=== PATIENT | male | born 1955 | race American Indian/Alaskan Native ===

== ENCOUNTER 2019-03-14 01:25 | Inpatient (IN) | payer MEDICARE ==
[2019-03-14 02:12] LABS: Hematocrit 39.3 % (35.5-45.6); Hemoglobin 12.4 gm/dl (11.8-15.2); Mean Corpuscular HGB Conc 31 % (32-34); Mean Corpuscular Volume 93 fl (84-94); Platelet Count 229 K/mm3 (140-440); Red Blood Count 4.24 M/mm3 (3.65-5.03); Red Cell Distribution Width 18.3 % (13.2-15.2)
[2019-03-14 02:27] LABS: BUN/Creatinine Ratio 13; Blood Urea Nitrogen 14 mg/dL (9-20)
[2019-03-14 02:28] LABS: Calcium 8.6 mg/dL (8.4-10.2)
[2019-03-14 02:37] LABS: Alanine Aminotransferase 43 units/L (7-56)
[2019-03-14 02:38] LABS: Albumin 3.5 g/dL (3.9-5)
[2019-03-14 02:48] LABS: Bilirubin,Urine Negative (Negative); Color,Urine Yellow (Yellow)
[2019-03-14 02:49] LABS: Blood,Urine Small (Negative); Mucus,Urine Few /HPF
[2019-03-14 04:45] LABS: Hemolysis Index 16
--- NOTE | 2019-03-14 04:57 | Emergency Department Report ---
ED General Adult HPI - General Chief complaint: Weakness Stated complaint: INSOMNIA/FATIGUE Time Seen by Provider: 03/14/19 04:48 Source: patient Mode of arrival: Ambulatory Limitations: No Limitations - History of Present Illness Initial comments: Patient is a 64-year-old -Greek male who presents with generalized malaise states insomnia for the past week just vaguely comfortable patient denies chest pain or shortness of breath at this time however states history of coronary artery disease and chest pain diabetes type 2 hypertension and insomnia followed by Dr. NAZARIO, states he does get tired but just cannot gross grossly zolpediem no working for sleep as prescribed by pcp MD Complaint: generalized malaise cough Onset/Timin -: Gradual, week(s) Location: chest, left, lower extremity Radiation: non-radiation Severity scale (0 -10): 3 Quality: stabbing, sharp, constant Consistency: constant Improves with: none Worsens with: none Associated Symptoms: cough, malaise, weakness. denies: confusion, diaphoresis, fever/chills, headaches, loss of appetite, nausea/vomiting, rash, seizure, shortness of breath Treatments Prior to Arrival: none - Related Data Home Medications Medication Instructions Recorded Confirmed Last Taken Aspirin [Aspirin BABY CHEW TAB] 1 tab PO DAILY 08/22/14 09/05/15 09/04/15 81mg Citalopram [celeXA] 40 tab PO DAILY 08/22/14 09/05/15 09/04/15 40 mg Insulin Aspart [NovoLOG Flexpen] 20 - 24 units SC TID 08/22/14 09/05/15 09/04/15 20 Insulin Lispro [Humalog Kwikpen] 40 units SC QHS 08/22/14 09/05/15 09/04/15 40 units Lisinopril 10 mg PO DAILY 08/22/14 09/05/15 09/04/15 10mg [place] Carbonate 600 mg PO BID 08/22/14 09/05/15 09/04/15 300mg Metoprolol [Lopressor TAB] 1 tab PO DAILY 08/22/14 09/05/15 09/04/15 50mg risperiDONE [Risperidone] 2 mg PO DAILY 08/22/14 09/05/15 09/04/15 2mg Mirtazapine [Remeron] 15 mg PO QHS 09/05/15 09/05/15 09/04/15 15mg Oxybutynin [Ditropan] 5 mg PO BID 09/05/15 09/05/15 09/04/15 5mg Ranitidine HCl [Zantac 150 MG TAB] 150 mg PO BID 09/05/15 09/05/15 09/04/15 150mg Rosuvastatin (Nf) [Crestor] 20 mg PO QHS 09/05/15 09/05/15 09/04/15 20mg Tamsulosin [Flomax] 0.4 mg PO BID 09/05/15 09/05/15 09/04/15 0.4mg metFORMIN [Glucophage] 500 mg PO BID 09/05/15 09/05/15 09/04/15 500mg Previous Rx's Medication Instructions Recorded Last Taken Type Ciprofloxacin HCl [Ciprofloxacin 500 mg PO Q12HR 10 Days #20 tab 08/04/18 Unknown Rx TAB] Cyclobenzaprine [Flexeril] 10 mg PO TID PRN #12 tablet 08/04/18 Unknown Rx Zolpidem Tartrate [Ambien] 5 mg PO QHS PRN #3 tablet 02/17/19 Unknown Rx Allergies Allergy/AdvReac Type Severity Reaction Status Date / Time No Known Allergies Allergy Verified 08/04/18 08:49 ED Review of Systems ROS: Stated complaint: INSOMNIA/FATIGUE Other details as noted in HPI Constitutional: malaise. denies: chills, fever Eyes: denies: eye pain, eye discharge, vision change ENT: congestion. denies: ear pain, throat pain Respiratory: cough, wheezing Cardiovascular: dyspnea on exertion. denies: chest pain, palpitations, edema, syncope Endocrine: no symptoms reported Gastrointestinal: denies: abdominal pain, nausea, diarrhea Genitourinary: denies: urgency, dysuria Musculoskeletal: denies: back pain, joint swelling, arthralgia Skin: denies: rash, lesions Neurological: denies: headache, weakness, numbness, paresthesias, confusion, abnormal gait, vertigo Psychiatric: denies: anxiety, depression Hematological/Lymphatic: denies: easy bleeding, easy bruising ED Past Medical Hx - Past Medical History Previous Medical History?: Yes Hx Hypertension: Yes Hx Diabetes: Yes Hx GERD: Yes Hx Psychiatric Treatment: Yes (Bipolar, Depression) Hx COPD: Yes Hx HIV: No Additional medical history: h/o prostate Ca - Surgical History Past Surgical History?: Yes Additional Surgical History: Prostate seed radiation for prostate cancer - Social History Smoking Status: Current Every Day Smoker Substance Use Type: None - Medications Home Medications: Home Medications Medication Instructions Recorded Confirmed Last Taken Type Aspirin [Aspirin BABY CHEW TAB] 1 tab PO DAILY 08/22/14 09/05/15 09/04/15 History 81mg Citalopram [celeXA] 40 tab PO DAILY 08/22/14 09/05/15 09/04/15 History 40 mg Insulin Aspart [NovoLOG Flexpen] 20 - 24 units SC TID 08/22/14 09/05/15 09/04/15 History 20 Insulin Lispro [Humalog Kwikpen] 40 units SC QHS 08/22/14 09/05/15 09/04/15 History 40 units Lisinopril 10 mg PO DAILY 08/22/14 09/05/15 09/04/15 History 10mg [place] 600 mg PO BID 08/22/14 09/05/15 09/04/15 History 300mg Metoprolol [Lopressor TAB] 1 tab PO DAILY 08/22/14 09/05/15 09/04/15 History 50mg risperiDONE [Risperidone] 2 mg PO DAILY 08/22/14 09/05/15 09/04/15 History 2mg Mirtazapine [Remeron] 15 mg PO QHS 09/05/15 09/05/15 09/04/15 History 15mg Oxybutynin [Ditropan] 5 mg PO BID 09/05/15 09/05/15 09/04/15 History 5mg Ranitidine HCl [Zantac 150 MG TAB] 150 mg PO BID 09/05/15 09/05/15 09/04/15 History 150mg Rosuvastatin (Nf) [Crestor] 20 mg PO QHS 09/05/15 09/05/15 09/04/15 History 20mg Tamsulosin [Flomax] 0.4 mg PO BID 09/05/15 09/05/15 09/04/15 History 0.4mg metFORMIN [Glucophage] 500 mg PO BID 09/05/15 09/05/15 09/04/15 History 500mg Ciprofloxacin HCl [Ciprofloxacin 500 mg PO Q12HR 10 Days #20 tab 08/04/18 Unknown Rx TAB] Cyclobenzaprine [Flexeril] 10 mg PO TID PRN #12 tablet 08/04/18 Unknown Rx Zolpidem Tartrate [Ambien] 5 mg PO QHS PRN #3 tablet 02/17/19 Unknown Rx ED Physical Exam - General Limitations: No Limitations General appearance: alert, in no apparent distress - Head Head exam: Present: atraumatic, normocephalic - Eye Eye exam: Present: normal appearance, PERRL, EOMI. Absent: scleral icterus, periorbital tenderness Pupils: Present: normal accommodation - ENT ENT exam: Present: normal orophraynx, mucous membranes moist, TM's normal bilaterally - Neck Neck exam: Present: normal inspection, full ROM. Absent: tenderness, me ningismus, lymphadenopathy, thyromegaly - Expanded Neck Exam Expanded Neck exam: Absent: carotid bruit, tracheal deviation - Respiratory Respiratory exam: Present: normal lung sounds bilaterally. Absent: respiratory distress, wheezes, stridor, chest wall tenderness, accessory muscle use, decreased breath sounds - Cardiovascular Cardiovascular Exam: Present: regular rate, normal rhythm, normal heart sounds. Absent: systolic murmur, diastolic murmur, rubs, gallop - GI/Abdominal GI/Abdominal exam: Present: soft, normal bowel sounds, hyperactive bowel sounds, hypoactive bowel sounds. Absent: distended, tenderness, guarding, rebound, rigid, mass, bruit, pulsatile mass - Rectal Rectal exam: Present: deferred - exam: Present: other (exam deferred per tiewer wq ) - Extremities Exam Extremities exam: Present: normal inspection, full ROM, normal capillary refill. Absent: tenderness, pedal edema, joint swelling, calf tenderness - Back Exam Back exam: Present: normal inspection, full ROM, tenderness, muscle spasm, paraspinal tenderness (right later lumbar pain no posterior vertebral point tenderness ), rash noted. Absent: CVA tenderness (R), CVA tenderness (L) - Neurological Exam Neurological exam: Present: CN II-XII intact, normal gait, abnormal gait. Absent: alert, oriented X3, motor sensory deficit - Psychiatric Psychiatric exam: Present: anxious. Absent: homicidal ideation, suicidal ideation - Skin Skin exam: Present: warm, dry, intact, normal color. Absent: rash, cyanosis, diaphoretic ED Course Vital Signs 03/14/19 03/14/19 01:29 02:09 Temperature 97.4 F L 97.4 F L Pulse Rate 108 H 110 H Respiratory 18 18 Rate Blood Pressure 137/95 137/95 O2 Sat by Pulse 99 99 Oximetry ED Medical Decision Making - Lab Data Result diagrams: 03/14/19 01:54 03/14/19 01:54 Lab Results 03/14/19 03/14/19 03/14/19 Range/Units 01:54 01:54 02:25 WBC 7.2 (4.5-11.0) K/mm3 RBC 4.24 (3.65-5.03) M/mm3 Hgb 12.4 (11.8-15.2) gm/dl Hct 39.3 (35.5-45.6) % MCV 93 (84-94) fl MCH 29 (28-32) pg MCHC 31 L (32-34) % RDW 18.3 H (13.2-15.2) % Plt Count 229 (140-440) K/mm3 Sodium 137 (137-145) mmol/L Potassium 4.0 (3.6-5.0) mmol/L Chloride 105.4 (98-107) mmol/L Carbon Dioxide 18 L (22-30) mmol/L Anion Gap 18 mmol/L BUN 14 (9-20) mg/dL Creatinine 1.1 (0.8-1.5) mg/dL Estimated GFR > 60 ml/min BUN/Creatinine Ratio 13 % Glucose 285 H (75-100) mg/dL Calcium 8.6 (8.4-10.2) mg/dL Total Bilirubin 0.50 (0.1-1.2) mg/dL AST 33 (5-40) units/L ALT 43 (7-56) units/L Alkaline Phosphatase 90 (35-129) units/L Troponin T 0.010 (0.00-0.029) ng/mL Total Protein 5.9 L (6.3-8.2) g/dL Albumin 3.5 L (3.9-5) g/dL Albumin/Globulin Ratio 1.5 % Urine Color Yellow (Yellow) Urine Turbidity Clear (Clear) Urine pH 5.0 (5.0-7.0) Ur Specific [place] 1.009 (1.003-1.030) Urine Protein 30 mg/dl (Negative) mg/dL Urine Glucose (UA) 50 (Negative) mg/dL Urine Ketones Negative (Negative) mg/dL Urine Blood Small A (Negative) Urine Nitrite Negative (Negative) Urine Bilirubin Negative (Negative) Urine Urobilinogen 2.0 (<2.0) mg/dL Ur Leukocyte Esterase Negative (Negative) Urine WBC (Auto) 1.0 (0.0-6.0) /HPF Urine RBC (Auto) 2.0 (0.0-6.0) /HPF U Epithel Cells (Auto) 1.0 (0-13.0) /HPF Urine Mucus Few /HPF - EKG Data EKG shows normal: sinus rhythm, axis, intervals - EKG Data Interpretation: normal EKG (EKG interp by ED attending no STEMI no ectopy no change from previous ekg 2014), [facility] Critical care attestation.: If time is entered above; I have spent that time in minutes in the direct care of this critically ill patient, excluding procedure time. ED Disposition Condition: Stable Referrals: ARIELLE BURDEN MD [Primary Care Provider] - 3-5 Days
--- NOTE | 2019-03-14 05:41 | XRay Report ---
PROCEDURE: XR CHEST ROUTINE 2V TECHNIQUE: PA and lateral chest radiographs HISTORY: weakness COMPARISONS: 08/04/2018 FINDINGS: No mediastinal shift. Borderline Cardiomegaly. Right middle lobe opacity with air bronchograms silhou ettes the right heart border. Patchy left perihilar opacity. Mild blunting of both costophrenic angle s and posterior costophrenic sulci. No pneumothorax. IMPRESSION: Multifocal airspace disease most significant in the right middle lobe with small pleural effusions. F ollow-up to resolution is recommended. This document is electronically signed by Sukhdev Blum MD., March 14 2019 05:39:29 AM ET
[2019-03-14] MEDS ORDERED: ROCEPHIN/NS 1 GM/50 ML 1 GM/50 ML BAG IV ONE (06:05)
[2019-03-14] MEDS ORDERED: NACL 0.9% 500 ML 500 ML IV ONE (06:05)
[2019-03-14] MEDS ORDERED: DUONEB *Not for PRN Use IH ONE (06:06)
[2019-03-14] MEDS ORDERED: LASIX IV ONE (07:12)
[2019-03-14] MEDS ORDERED: APRESOLINE IV ONE (07:12)
--- NOTE | 2019-03-14 07:19 | Emergency Department Report ---
ED General Adult HPI - General Chief complaint: Weakness Stated complaint: INSOMNIA/FATIGUE Time Seen by Provider: 03/14/19 04:48 Source: patient Mode of arrival: Ambulatory Limitations: No Limitations - History of Present Illness Initial comments: Mrs. Pantoja is a 64 y/o aam who presents for complaint of insomnia 1 month patient states she is currently comfortable patient denies chest pain however does have cough and some shortness of breath Mrs. Rivers has a history of coronary artery disease hypertension diabetes type 2 and depression patient states he was prescribed Zolpidem 1 month ago however not working for insomnia, pt is followed by Dr. Iglesias , states intermittent adherence blood pressure medications. There is no nausea vomiting no dizziness there is no SI or HI Onset/Timin -: month(s) Severity scale (0 -10): 0 Consistency: intermittent Improves with: none Worsens with: other (noc) Associated Symptoms: cough, shortness of breath Treatments Prior to Arrival: none - Related Data Home Medications Medication Instructions Recorded Confirmed Last Taken Aspirin [Aspirin BABY CHEW TAB] 1 tab PO DAILY 08/22/14 09/05/15 09/04/15 81mg Citalopram [celeXA] 40 tab PO DAILY 08/22/14 09/05/15 09/04/15 40 mg Insulin Aspart [NovoLOG Flexpen] 20 - 24 units SC TID 08/22/14 09/05/15 09/04/15 20 Insulin Lispro [Humalog Kwikpen] 40 units SC QHS 08/22/14 09/05/15 09/04/15 40 units Lisinopril 10 mg PO DAILY 08/22/14 09/05/15 09/04/15 10mg [place] Carbonate 600 mg PO BID 08/22/14 09/05/15 09/04/15 300mg Metoprolol [Lopressor TAB] 1 tab PO DAILY 08/22/14 09/05/15 09/04/15 50mg risperiDONE [Risperidone] 2 mg PO DAILY 08/22/14 09/05/15 09/04/15 2mg Mirtazapine [Remeron] 15 mg PO QHS 09/05/15 09/05/15 09/04/15 15mg Oxybutynin [Ditropan] 5 mg PO BID 09/05/15 09/05/15 09/04/15 5mg Ranitidine HCl [Zantac 150 MG TAB] 150 mg PO BID 09/05/15 09/05/15 09/04/15 150mg Rosuvastatin (Nf) [Crestor] 20 mg PO QHS 09/05/15 09/05/15 09/04/15 20mg Tamsulosin [Flomax] 0.4 mg PO BID 09/05/15 09/05/15 09/04/15 0.4mg metFORMIN [Glucophage] 500 mg PO BID 09/05/15 09/05/15 09/04/15 500mg Previous Rx's Medication Instructions Recorded Last Taken Type Ciprofloxacin HCl [Ciprofloxacin 500 mg PO Q12HR 10 Days #20 tab 08/04/18 Unknown Rx TAB] Cyclobenzaprine [Flexeril] 10 mg PO TID PRN #12 tablet 08/04/18 Unknown Rx Zolpidem Tartrate [Ambien] 5 mg PO QHS PRN #3 tablet 02/17/19 Unknown Rx Allergies Allergy/AdvReac Type Severity Reaction Status Date / Time No Known Allergies Allergy Verified 08/04/18 08:49 ED Review of Systems ROS: Stated complaint: INSOMNIA/FATIGUE Other details as noted in HPI Constitutional: denies: chills, fever Eyes: denies: eye pain, eye discharge, vision change ENT: congestion. denies: ear pain, throat pain Respiratory: cough, shortness of breath Cardiovascular: dyspnea on exertion, orthopnea, paroxysmal nocturnal dyspnea. denies: chest pain, palpitations, edema, syncope Endocrine: no symptoms reported Gastrointestinal: denies: abdominal pain, nausea, diarrhea Genitourinary: denies: urgency, dysuria Musculoskeletal: denies: back pain, joint swelling, arthralgia Skin: denies: rash, lesions Neurological: denies: headache, weakness, paresthesias Psychiatric: denies: anxiety, depression Hematological/Lymphatic: denies: easy bleeding, easy bruising ED Past Medical Hx - Past Medical History Previous Medical History?: Yes Hx Hypertension: Yes Hx Diabetes: Yes Hx GERD: Yes Hx Psychiatric Treatment: Yes (Bipolar, Depression) Hx COPD: Yes Hx HIV: No Additional medical history: h/o prostate Ca - Surgical History Past Surgical History?: Yes Additional Surgical History: Prostate seed radiation for prostate cancer - Social History Smoking Status: Current Every Day Smoker Substance Use Type: None - Medications Home Medications: Home Medications Medication Instructions Recorded Confirmed Last Taken Type Aspirin [Aspirin BABY CHEW TAB] 1 tab PO DAILY 08/22/14 09/05/15 09/04/15 History 81mg Citalopram [celeXA] 40 tab PO DAILY 08/22/14 09/05/15 09/04/15 History 40 mg Insulin Aspart [NovoLOG Flexpen] 20 - 24 units SC TID 08/22/14 09/05/15 09/04/15 History 20 Insulin Lispro [Humalog Kwikpen] 40 units SC QHS 08/22/14 09/05/15 09/04/15 History 40 units Lisinopril 10 mg PO DAILY 08/22/14 09/05/15 09/04/15 History 10mg [place] Carbonate 600 mg PO BID 08/22/14 09/05/15 09/04/15 History 300mg Metoprolol [Lopressor TAB] 1 tab PO DAILY 08/22/14 09/05/15 09/04/15 History 50mg risperiDONE [Risperidone] 2 mg PO DAILY 08/22/14 09/05/15 09/04/15 History 2mg Mirtazapine [Remeron] 15 mg PO QHS 09/05/15 09/05/15 09/04/15 History 15mg Oxybutynin [Ditropan] 5 mg PO BID 09/05/15 09/05/15 09/04/15 History 5mg Ranitidine HCl [Zantac 150 MG TAB] 150 mg PO BID 09/05/15 09/05/15 09/04/15 History 150mg Rosuvastatin (Nf) [Crestor] 20 mg PO QHS 09/05/15 09/05/15 09/04/15 History 20mg Tamsulosin [Flomax] 0.4 mg PO BID 09/05/15 09/05/15 09/04/15 History 0.4mg metFORMIN [Glucophage] 500 mg PO BID 09/05/15 09/05/15 09/04/15 History 500mg Ciprofloxacin HCl [Ciprofloxacin 500 mg PO Q12HR 10 Days #20 tab 08/04/18 Unkno wn Rx TAB] Cyclobenzaprine [Flexeril] 10 mg PO TID PRN #12 tablet 08/04/18 Unknown Rx Zolpidem Tartrate [Ambien] 5 mg PO QHS PRN #3 tablet 02/17/19 Unknown Rx ED Physical Exam - General Limitations: No Limitations General appearance: alert, in no apparent distress - Head Head exam: Present: atraumatic, normocephalic - Eye Eye exam: Present: normal appearance, PERRL, EOMI Pupils: Present: normal accommodation - ENT ENT exam: Present: mucous membranes moist - Neck Neck exam: Present: normal inspection, full ROM, lymphadenopathy. Absent: tenderness, meningismus, thyromegaly - Expanded Neck Exam Expanded Neck exam: Absent: tenderness, midline deformity, anterior neck swelling, thyroid mass, carotid bruit, tracheal deviation - Respiratory Respiratory exam: Present: wheezes (exp wheezes anterior lobes ), chest wall tenderness (right lateral chest wall tenderness ). Absent: stridor - Expanded Respiratory Exam Expanded Location: Wheezes: Right, Left, Upper (name R Loni), Decreased Breath Sounds: Right, Lower (mode) - Cardiovascular Cardiovascular Exam: Present: normal rhythm, tachycardia, normal heart sounds. Absent: systolic murmur, diastolic murmur, rubs, gallop - Expanded Cardiovascular Exam Expanded Peripheral pulses: 2+: Carotid (R), Carotid (L), Radial (R), Radial (L), Dorsalis Pedis (R), Dorsalis Pedis (L) - GI/Abdominal GI/Abdominal exam: Present: soft, normal bowel sounds. Absent: distended, tende rness, guarding, rebound, rigid, mass, bruit, hernia - Rectal Rectal exam: Present: deferred - Extremities Exam Extremities exam: Present: normal inspection, normal capillary refill (work). Absent: full ROM (all), tenderness, pedal edema, joint swelling, calf tenderness - Back Exam Back exam: Present: normal inspection, full ROM, CVA tenderness (R) (the organ sentences is). Absent: tenderness, CVA tenderness (L), muscle spasm, paraspinal tenderness, vertebral tenderness, rash noted - Neurological Exam Neurological exam: Present: alert, oriented X3, CN II-XII intact, normal gait, reflexes normal - Psychiatric Psychiatric exam: Present: normal affect, normal mood - Skin Skin exam: Present: warm, dry, intact, normal color. Absent: rash ED Course Vital Signs 03/14/19 03/14/19 01:29 02:09 Temperature 97.4 F L 97.4 F L Pulse Rate 108 H 110 H Respiratory 18 18 Rate Blood Pressure 137/95 137/95 O2 Sat by Pulse 99 99 Oximetry ED Medical Decision Making - Lab Data Result diagrams: 03/14/19 01:54 03/14/19 01:54 Labs 03/14/19 03/14/19 03/14/19 01:54 01:54 02:25 WBC 7.2 RBC 4.24 Hgb 12.4 Hct 39.3 MCV 93 MCH 29 MCHC 31 L RDW 18.3 H Plt Count 229 Sodium 137 Potassium 4.0 Chloride 105.4 Carbon Dioxide 18 L Anion Gap 18 BUN 14 Creatinine 1.1 Estimated GFR > 60 BUN/Creatinine Ratio 13 Glucose 285 H Calcium 8.6 Total Bilirubin 0.50 AST 33 ALT 43 Alkaline Phosphatase 90 Troponin T 0.010 NT-Pro-B Natriuret Pep Total Protein 5.9 L Albumin 3.5 L Albumin/Globulin Ratio 1.5 Urine Color Yellow Urine Turbidity Clear Urine pH 5.0 Ur Specific [place] 1.009 Urine Protein 30 mg/dl Urine Glucose (UA) 50 Urine Ketones Negative Urine Blood Small A Urine Nitrite Negative Urine Bilirubin Negative Urine Urobilinogen 2.0 Ur Leukocyte Esterase Negative Urine WBC (Auto) 1.0 Urine RBC (Auto) 2.0 U Epithel Cells (Auto) 1.0 Urine Mucus Few 03/14/19 06:13 WBC RBC Hgb Hct MCV MCH MCHC RDW Plt Count Sodium Potassium Chloride Carbon Dioxide Anion Gap BUN Creatinine Estimated GFR BUN/Creatinine Ratio Glucose Calcium Total Bilirubin AST ALT Alkaline Phosphatase Troponin T < 0.010 NT-Pro-B Natriuret Pep 1722 H Total Protein Albumin Albumin/Globulin Ratio Urine Color Urine Turbidity Urine pH Ur Specific [place] Urine Protein Urine Glucose (UA) Urine Ketones Urine Blood Urine Nitrite Urine Bilirubin Urine Urobilinogen Ur Leukocyte Esterase Urine WBC (Auto) Urine RBC (Auto) U Epithel Cells (Auto) Urine Mucus EKG - EKG Data EKG shows normal: sinus rhythm, axis, intervals, ST-T waves Rate: tachycardia - EKG Data When compared to previous EKG there are: no significant change Interpretation: LVH (ekg interp by ed attending nsr with lvh, no ST Elevated TX, no ectopy ) - Radiology Data Radiology results: report reviewed, image reviewed Findings [facility] [address] [place] [address] XRay Report Signed Patient: NIECY PANTOJA MR#: [id number] : 1955 Acct:[id number] Age/Sex: 64 / M ADM Date: 03/14/19 Loc: ED Attending Dr: Ordering Physician: SHINE SUTHERLAND NP Date of Service: 03/14/19 Procedure(s): XR chest routine 2V Accession Number(s): [id number] cc: SHINE SUTHERLAND NP Fluoro Time In Minutes: PROCEDURE: XR CHEST ROUTINE 2V TECHNIQUE: PA and lateral chest radiographs HISTORY: weakness COMPARISONS: 08/04/2018 FINDINGS: No mediastinal shift. Borderline Cardiomegaly. Right middle lobe opacity with air bronchograms silhouettes the right heart border. Patchy left perihilar opacity. Mild blunting of both costophrenic angles and posterior costophrenic sulci. No pneumothorax. IMPRESSION: Multifocal airspace disease most significant in the right middle lobe with small pleural effusions. Follow-up to resolution is recommended. This document is electronically signed by Sukhdev Jimenez MD., March 14 2019 05:39:29 AM ET Transcribed By: OLESYA Dictated By: SUKHDEV JIMENEZ MD Electronically Authenticated By: SUKHDEV JIMENEZ MD Signed Date/Time: 03/14/19 0541 DD/ 2 TD/TT: 03/14/19532 - Medical Decision Making cxr: mild hiliar infiltrates , small right middle pleural effusion, TX with Duoneb, rocephin, BNP pending BNP is : 1742, trop: <0.01 x 2, Hx complaint, CAD, HTN, DM, pt states symptoms are slightly improved with medications given in ed. however still notes increased sob with ambulation, noted PND on exam, plan, consult ed attending, bp control, diuresis , repeat trop. cxr in am , consult hospitalist for admission Dx CHF , pt care hand off to Hospitalist Dr Colon, discussed treatment plan with patient , patient in agreement and understanding of same. Critical care attestation.: If time is entered above; I have spent that time in minutes in the direct care of this critically ill patient, excluding procedure time. ED Disposition Clinical Impression: CHF (congestive heart failure) Qualifiers: Heart failure type: unspecified Heart failure chronicity: unspecified Qualified Code(s): I50.9 - Heart failure, unspecified Disposition: DC-09 OP ADMIT IP TO THIS HOSP Is pt being admited?: Yes Does the pt Need Aspirin: No Condition: Stable Instructions: Heart Failure (ED) Referrals: ARIELLE BURDEN MD [Primary Care Provider] - 3-5 Days Time of Disposition: 07:51
[2019-03-14] MEDS ORDERED: APRESOLINE PO SCH (08:30)
[2019-03-14] MEDS ORDERED: TYLENOL PO PRN (09:17)
[2019-03-14] MEDS ORDERED: SODIUM CHLORIDE FLUSH SYRINGE 10 ML IV PRN (09:17)
[2019-03-14] MEDS ORDERED: ZOFRAN IV PRN (09:17)
[2019-03-14] MEDS ORDERED: NITROSTAT SL PRN (09:33)
[2019-03-14] MEDS ORDERED: MORPHINE IV PRN (09:33)
[2019-03-14] MEDS ORDERED: SODIUM CHLORIDE FLUSH SYRINGE 10 ML IV SCH (10:00)
[2019-03-14] MEDS ORDERED: LASIX IV SCH (10:00)
--- NOTE | 2019-03-14 10:03 | History and Physical Report ---
<TYRON INMAN - Last Filed: 03/14/19 10:44> History of Present Illness Date of examination: 03/14/19 Date of admission: 03/14/19 07:52 Chief complaint: Insomnia and trouble breathing History of present illness: Mr. Pantoja is a 64-year-old male with history of CHF, diabetes, hypertension, depression, anger management issues, and prostate cancer who presented to the ED this morning with complaints of difficulty breathing and difficulty sleeping, which has progressively worsened over the past 2 weeks. Briefly, please note patient was seen in the ED on 02/17 with similar complaints. He was given a prescription for Ambien 5 mg and advised to continue all current medication, and follow up with [facility] in 3-5 days. Is not clear whether patient Follow-up appointment. In addition to taking Ambien patient takes Remeron 15 mg, lithium 600 mg, and risperidone 2 mg twice a day Mr. Figueroa is a ongoing smoker that smokes 1 pack per day for the last 42 years. Patient states that she has been taking Ambien but is able to remain sleeping throughout the night. He has periods of interruption and becomes unsteady with ambulation. He feels like this is due to the"medication being in system". He feels that this difficulty breathing is related to anxiety. He attributes his anxiety to job instability/ uncertainty and income worries . Past History Past Medical History: cancer, diabetes, heart failure, hypertension Past Surgical History: No surgical history Social history: , smoking Family history: no significant family history Medications and Allergies Allergies Allergy/AdvReac Type Severity Reaction Status Date / Time No Known Allergies Allergy Verified 08/04/18 08:49 Home Medications Medication Instructions Recorded Confirmed Last Taken Type Aspirin [Aspirin BABY CHEW TAB] 1 tab PO DAILY 08/22/14 09/05/15 09/04/15 History 81mg Citalopram [celeXA] 40 tab PO DAILY 08/22/14 09/05/15 09/04/15 History 40 mg Insulin Aspart [NovoLOG Flexpen] 20 - 24 units SC TID 08/22/14 09/05/15 09/04/15 History 20 Insulin Lispro [Humalog Kwikpen] 40 units SC QHS 08/22/14 09/05/15 09/04/15 History 40 units Lisinopril 10 mg PO DAILY 08/22/14 09/05/15 09/04/15 History 10mg [place] 600 mg PO BID 08/22/14 09/05/15 09/04/15 History 300mg Metoprolol [Lopressor TAB] 1 tab PO DAILY 08/22/14 09/05/15 09/04/15 History 50mg risperiDONE [Risperidone] 2 mg PO DAILY 08/22/14 09/05/15 09/04/15 History 2mg Mirtazapine [Remeron] 15 mg PO QHS 09/05/15 09/05/15 09/04/15 History 15mg Oxybutynin [Ditropan] 5 mg PO BID 09/05/15 09/05/15 09/04/15 History 5mg Ranitidine HCl [Zantac 150 MG TAB] 150 mg PO BID 09/05/15 09/05/15 09/04/15 History 150mg Rosuvastatin (Nf) [Crestor] 20 mg PO QHS 09/05/15 09/05/15 09/04/15 History 20mg Tamsulosin [Flomax] 0.4 mg PO BID 09/05/15 09/05/15 09/04/15 History 0.4mg metFORMIN [Glucophage] 500 mg PO BID 09/05/15 09/05/15 09/04/15 History 500mg Ciprofloxacin HCl [Ciprofloxacin 500 mg PO Q12HR 10 Days #20 tab 08/04/18 Unknown Rx TAB] Cyclobenzaprine [Flexeril] 10 mg PO TID PRN #12 tablet 08/04/18 Unknown Rx Zolpidem Tartrate [Ambien] 5 mg PO QHS PRN #3 tablet 02/17/19 Unknown Rx Active Meds: Active Medications Acetaminophen (Tylenol) 650 mg PO Q4H PRN PRN Reason: Pain MILD(1-3)/Fever >100.5/RAMOS Furosemide (Lasix) 40 mg IV BID YADY Hydralazine HCl (Apresoline) 25 mg PO TID YADY Morphine Sulfate (Morphine) 2 mg IV Q5MIN PRN PRN Reason: Chest Pain unrelieved by NTG Nitroglycerin (Nitrostat) 0.4 mg SL .Q5MIN PRN PRN Reason: Chest Pain Ondansetron HCl (Zofran) 4 mg IV Q8H PRN PRN Reason: Nausea And Vomiting Sodium Chloride (Sodium Chloride Flush Syringe 10 Ml) 10 ml IV BID YADY Sodium Chloride (Sodium Chloride Flush Syringe 10 Ml) 10 ml IV PRN PRN PRN Reason: LINE FLUSH Zolpidem Tartrate (Ambien) 5 mg PO QHS PRN PRN Reason: Insomnia Review of Systems Constitutional: weight loss Ears, nose, mouth and throat: decreased hearing (wear hearing aide), no nasal congestion, no sore throat, no headache Cardiovascular: edema, shortness of breath, no chest pain Respiratory: cough with sputum, shortness of breath, no home oxygen Gastrointestinal: no abdominal pain, no nausea, no vomiting, no diarrhea, no constipation Genitourinary Male: no dysuria, no hematuria, no urinary frequency, no nocturia, no incontinence Rectal: no pain Musculoskeletal: frequent falls (during night time) Integumentary: pruritis, no rash, no wounds Neurological: no head injury, no weakness, no numbness, no tingling Psychiatric: anxiety, sleep disturbances, insomnia Endocrine: no polydipsia, no polyuria, no nocturia Hematologic/Lymphatic: no easy bruising, no easy bleeding Allergic/Immunologic: no wheezing Exam - Constitutional Vitals: Temp Pulse Resp BP Pulse Ox 97.4 F L 95 H 24 135/94 94 03/14/19 02:09 03/14/19 09:23 03/14/19 09:23 03/14/19 09:23 03/14/19 09:23 General appearance: Present: no acute distress - EENT Eyes: Present: PERRL, EOM intact ENT: clear oral mucosa, poor dentition - Neck Neck: Present: supple - Respiratory Respiratory effort: other (non-labored) Respiratory: bilateral: diminished (bases) - Cardiovascular Rhythm: regular Heart Sounds: Present: S1 & S2 - Extremities Extremities: pulses intact Extremity abnormal: edema - Peripheral Assessment Lower Extremity Edema Type: Pitting Edema Degree: 1+ Peripheral Pulses: within normal limits - Abdominal General gastrointestinal: Present: deferred, non-tender Male genitourinary: Present: deferred - Rectal Rectal Exam: deferred - Integumentary Integumentary: Present: warm, dry - Musculoskeletal Musculoskeletal: strength equal bilaterally - Psychiatric Psychiatric: cooperative, agitated - Neurologic Neurologic: CNII-XII intact Results - Labs CBC & Chem 7: 03/14/19 01:54 03/14/19 01:54 Labs: Laboratory Last Values WBC 7.2 K/mm3 (4.5-11.0) 03/14/19 01:54 RBC 4.24 M/mm3 (3.65-5.03) 03/14/19 01:54 Hgb 12.4 gm/dl (11.8-15.2) 03/14/19 01:54 Hct 39.3 % (35.5-45.6) 03/14/19 01:54 MCV 93 fl (84-94) 03/14/19 01:54 MCH 29 pg (28-32) 03/14/19 01:54 MCHC 31 % (32-34) L 03/14/19 01:54 RDW 18.3 % (13.2-15.2) H 03/14/19 01:54 Plt Count 229 K/mm3 (140-440) 03/14/19 01:54 Sodium 137 mmol/L (137-145) 03/14/19 01:54 Potassium 4.0 mmol/L (3.6-5.0) 03/14/19 01:54 Chloride 105.4 mmol/L (98-107) 03/14/19 01:54 Carbon Dioxide 18 mmol/L (22-30) L 03/14/19 01:54 Anion Gap 18 mmol/L 03/14/19 01:54 BUN 14 mg/dL (9-20) 03/14/19 01:54 Creatinine 1.1 mg/dL (0.8-1.5) 03/14/19 01:54 Estimated GFR > 60 ml/min 03/14/19 01:54 BUN/Creatinine Ratio 13 % 03/14/19 01:54 Glucose 285 mg/dL (75-100) H 03/14/19 01:54 Calcium 8.6 mg/dL (8.4-10.2) 03/14/19 01:54 Total Bilirubin 0.50 mg/dL (0.1-1.2) 03/14/19 01:54 AST 33 units/L (5-40) 03/14/19 01:54 ALT 43 units/L (7-56) 03/14/19 01:54 Alkaline Phosphatase 90 units/L (35-129) 03/14/19 01:54 Troponin T < 0.010 ng/mL (0.00-0.029) 03/14/19 06:13 NT-Pro-B Natriuret Pep 1722 pg/mL (0-900) H 03/14/19 06:13 Total Protein 5.9 g/dL (6.3-8.2) L 03/14/19 01:54 Albumin 3.5 g/dL (3.9-5) L 03/14/19 01:54 Albumin/Globulin Ratio 1.5 % 03/14/19 01:54 Urine Color Yellow (Yellow) 03/14/19 02:25 Urine Turbidity Clear (Clear) 03/14/19 02:25 Urine pH 5.0 (5.0-7.0) 03/14/19 02:25 Ur Specific [place] 1.009 (1.003-1.030) 03/14/19 02:25 Urine Protein 30 mg/dl mg/dL (Negative) 03/14/19 02:25 Urine Glucose (UA) 50 mg/dL (Negative) 03/14/19 02:25 Urine Ketones Negative mg/dL (Negative) 03/14/19 02:25 Urine Blood Small (Negative) A 03/14/19 02:25 Urine Nitrite Negative (Negative) 03/14/19 02:25 Urine Bilirubin Negative (Negative) 03/14/19 02:25 Urine Urobilinogen 2.0 mg/dL (<2.0) 03/14/19 02:25 Ur Leukocyte Esterase Negative (Negative) 03/14/19 02:25 Urine WBC (Auto) 1.0 /HPF (0.0-6.0) 03/14/19 02:25 Urine RBC (Auto) 2.0 /HPF (0.0-6.0) 03/14/19 02:25 U Epithel Cells (Auto) 1.0 /HPF (0-13.0) 03/14/19 02:25 Urine Mucus Few /HPF 03/14/19 02:25 Assessment and Plan Assessment and plan: 64 y.o male with history of CHF, uncontrolled DM, HTN, and insomnia who was seen in the ED this morning. At the time of my examination patient is awake, alert and oriented 3 sitting up in bedside chair on room air. During the examination he displayed periods of dis orientation and needed to be redirected. Insomnia Currently taking Ambien 5mg daily States that his inability to sleep is related to anxiety and job uncertainty Psych consulted CHF CXR this am shows borderline cardiomegaly, multifocal airspace disease most significant in RML with small pleural effusion. ECG this am initial results revealed LA enlargement, and LVH with secondary repolarization abnormality- pending finalized read Continue HF Meds to optimize cardiac function Order Echo DM BG this am 285 Start POC monitoring with SSI coverage Start Lantus 10u HS HTN Monitor BP and continue antihypertensive to optimize BP Depression Continue home meds: Remeron, Risperidone, and lithium Consult to psych pending Hx of Anger issues Hx of Prostate CA Advance Directives: No VTE prophylaxis?: Chemical <JD JEAN-BAPTISTE R - Last Filed: 03/14/19 11:08> History of Present Illness Date of admission: 03/14/19 07:52 Medications and Allergies Active Meds: Active Medications Acetaminophen (Tylenol) 650 mg PO Q4H PRN PRN Reason: Pain MILD(1-3)/Fever >100.5/RAMOS Furosemide (Lasix) 40 mg IV BID YADY Hydralazine HCl (Apresoline) 25 mg PO TID YADY Morphine Sulfate (Morphine) 2 mg IV Q5MIN PRN PRN Reason: Chest Pain unrelieved by NTG Nitroglycerin (Nitrostat) 0.4 mg SL .Q5MIN PRN PRN Reason: Chest Pain Ondansetron HCl (Zofran) 4 mg IV Q8H PRN PRN Reason: Nausea And Vomiting Sodium Chloride (Sodium Chloride Flush Syringe 10 Ml) 10 ml IV BID YADY Sodium Chloride (Sodium Chloride Flush Syringe 10 Ml) 10 ml IV PRN PRN PRN Reason: LINE FLUSH Zolpidem Tartrate (Ambien) 5 mg PO QHS PRN PRN Reason: Insomnia Exam - Constitutional Vitals: Temp Pulse Resp BP Pulse Ox 97.4 F L 95 H 24 135/94 94 03/14/19 02:09 03/14/19 09:23 03/14/19 09:23 03/14/19 09:23 03/14/19 09:23 Results - Labs CBC & Chem 7: 03/14/19 01:54 03/14/19 01:54 Labs: Laboratory Last Values WBC 7.2 K/mm3 (4.5-11.0) 03/14/19 01:54 RBC 4.24 M/mm3 (3.65-5.03) 03/14/19 01:54 Hgb 12.4 gm/dl (11.8-15.2) 03/14/19 01:54 Hct 39.3 % (35.5-45.6) 03/14/19 01:54 MCV 93 fl (84-94) 03/14/19 01:54 MCH 29 pg (28-32) 03/14/19 01:54 MCHC 31 % (32-34) L 03/14/19 01:54 RDW 18.3 % (13.2-15.2) H 03/14/19 01:54 Plt Count 229 K/mm3 (140-440) 03/14/19 01:54 Sodium 137 mmol/L (137-145) 03/14/19 01:54 Potassium 4.0 mmol/L (3.6-5.0) 03/14/19 01:54 Chloride 105.4 mmol/L (98-107) 03/14/19 01:54 Carbon Dioxide 18 mmol/L (22-30) L 03/14/19 01:54 Anion Gap 18 mmol/L 03/14/19 01:54 BUN 14 mg/dL (9-20) 03/14/19 01:54 Creatinine 1.1 mg/dL (0.8-1.5) 03/14/19 01:54 Estimated GFR > 60 ml/min 03/14/19 01:54 BUN/Creatinine Ratio 13 % 03/14/19 01:54 Glucose 285 mg/dL (75-100) H 03/14/19 01:54 Calcium 8.6 mg/dL (8.4-10.2) 03/14/19 01:54 Total Bilirubin 0.50 mg/dL (0.1-1.2) 03/14/19 01:54 AST 33 units/L (5-40) 03/14/19 01:54 ALT 43 units/L (7-56) 03/14/19 01:54 Alkaline Phosphatase 90 units/L (35-129) 03/14/19 01:54 Troponin T < 0.010 ng/mL (0.00-0.029) 03/14/19 06:13 NT-Pro-B Natriuret Pep 1722 pg/mL (0-900) H 03/14/19 06:13 Total Protein 5.9 g/dL (6.3-8.2) L 03/14/19 01:54 Albumin 3.5 g/dL (3.9-5) L 03/14/19 01:54 Albumin/Globulin Ratio 1.5 % 03/14/19 01:54 Urine Color Yellow (Yellow) 03/14/19 02:25 Urine Turbidity Clear (Clear) 03/14/19 02:25 Urine pH 5.0 (5.0-7.0) 03/14/19 02:25 Ur Specific [place] 1.009 (1.003-1.030) 03/14/19 02:25 Urine Protein 30 mg/dl mg/dL (Negative) 03/14/19 02:25 Urine Glucose (UA) 50 mg/dL (Negative) 03/14/19 02:25 Urine Ketones Negative mg/dL (Negative) 03/14/19 02:25 Urine Blood Small (Negative) A 03/14/19 02:25 Urine Nitrite Negative (Negative) 03/14/19 02:25 Urine Bilirubin Negative (Negative) 03/14/19 02:25 Urine Urobilinogen 2.0 mg/dL (<2.0) 03/14/19 02:25 Ur Leukocyte Esterase Negative (Negative) 03/14/19 02:25 Urine WBC (Auto) 1.0 /HPF (0.0-6.0) 03/14/19 02:25 Urine RBC (Auto) 2.0 /HPF (0.0-6.0) 03/14/19 02:25 U Epithel Cells (Auto) 1.0 /HPF (0-13.0) 03/14/19 02:25 Urine Mucus Few /HPF 03/14/19 02:25 Assessment and Plan Assessment and plan: I saw and evaluated the patient. I agree with the findings and the plan of care as documented in the Nurse Practitioner's~note, with the following corrections a nd additions. Dr. Jean-Baptiste CHF most likely acute on chronic combined heart failure.
--- NOTE | 2019-03-14 10:53 | Discharge Summary ---
Providers - Providers Date of Admission: 03/14/19 07:52 Attending physician: JD JEAN-BAPTISTE 03/14/19 09:17 Consult to Mental Health [CONS] Urgent Reason For Exam: hx of mental health disease. Place consult to:: yard crane operator pulmonary specialist Notified:: awaiting call back Phone number called:: [phone] Primary care physician: ARIELLE BURDEN Hospitalization Condition: Stable Hospital course: Pt was admitted for CHF and insomina. After initial examination, I received a call from pt's primary nurse, and was advised he wanted to sign out AMA. I went back and spoke with pt and discussed plan of care, and risk associated with signing out AMA. According to patient he needs to go home and drop off the house keys for his , who is presently at work and will not return home until 6pm this evening. I suggested that he call his and let her know that he was at [facility] and can brass pickler the keys, when she gets off. Pt become upset and refused to continue the conversation. He sat silent for a few minutes and then insisted that the nurse give him the paperwork to sign. Disposition: DC-07 LEFT AGAINST MED ADVICE Core Measure Documentation - Palliative Care Palliative Care/ Comfort Measures: Not Applicable - Core Measures Any of the following diagnoses?: heart failure - VTE Discharge Requirements Deep Vein Thrombosis/Pulmonary Embolism Present on Admission: No Has pt received <5 days of overlap therapy or INR<2.0: No Anticoagulant overlap therapy prescribed at discharge: No Contraindication No Overlap Therapy order at DC: Patient Refusal - Heart Failure Discharge Requirements TERESITA/ARB for LVSD if EF <40%: Not Applicable Beta janie at discharge: Yes Exam - Physical Exam Narrative exam: General appearance: Present: no acute distress - EENT Eyes: Present: PERRL, EOM intact ENT: clear oral mucosa, poor dentition - Neck Neck: Present: supple - Respiratory Respiratory effort: other (non-labored) Respiratory: bilateral: diminished (bases) - Cardiovascular Rhythm: regular Heart Sounds: Present: S1 & S2 - Extremities Extremities: pulses intact Extremity abnormal: edema - Peripheral Assessment Lower Extremity Edema Type: Pitting Edema Degree: 1+ Peripheral Pulses: within normal limits - Abdominal General gastrointestinal: Present: deferred, non-tender Male genitourinary: Present: deferred - Rectal Rectal Exam: deferred - Integumentary Integumentary: Present: warm, dry - Musculoskeletal Musculoskeletal: strength equal bilaterally - Psychiatric Psychiatric: cooperative, agitated - Neurologic Neurologic: CNII-XII intact - Constitutional Vitals: Temp Pulse Resp BP Pulse Ox 97.4 F L 95 H 24 135/94 94 03/14/19 02:09 03/14/19 09:23 03/14/19 09:23 03/14/19 09:23 03/14/19 09:23 Plan Follow up with: ARIELLE BURDEN MD [Primary Care Provider] - 3-5 Days
[2019-03-14] MEDS ORDERED: AMBIEN PO PRN (22:00)
[2019-03-15 18:09] VITALS: BP 135/94
== END 2019-03-14 09:52 | disposition left against medical advice (07) | DRG 293 ==
LOC: ED 01:25 → 3A 07:52
PROVIDERS: ADMIT Emergency Medicine; ATTEND Internal Medicine
DX: I11.0 Hypertensive heart disease with heart failure (principal); I50.43 Acute on chronic combined systolic (congestive) and diastolic (congestive) heart failure; E11.9 Type 2 diabetes mellitus without complications; G47.00 Insomnia, unspecified; F17.200 Nicotine dependence, unspecified, uncomplicated; F32.9 Major depressive disorder, single episode, unspecified; F41.9 Anxiety disorder, unspecified; I25.10 Atherosclerotic heart disease of native coronary artery without angina pectoris; K21.9 Gastro-esophageal reflux disease without esophagitis; J44.9 Chronic obstructive pulmonary disease, unspecified; Z79.82 Long term (current) use of aspirin; Z79.899 Other long term (current) drug therapy; Z85.46 Personal history of malignant neoplasm of prostate; Z79.4 Long term (current) use of insulin
CPT/HCPCS: 36415; 71046; 80053; 81001; 83880; 84484; 85027; 93005; 93010; 99285; G0378; J0696; J7040

== ENCOUNTER 2019-03-14 11:16 | Inpatient (IN) | payer MEDICARE ==
--- NOTE | 2019-03-14 12:10 | Emergency Department Report ---
Chief Complaint: Chest Pain Stated Complaint: SICK Time Seen by Provider: 03/14/19 12:09 - HPI History of Present Illness: pt was supposed to be admitted earlier this morning for acute on chronic CHF will send to the main ED for further evaluation and management
[2019-03-14 13:05] LABS: BUN/Creatinine Ratio 10; Blood Urea Nitrogen 10 mg/dL (9-20); Calcium 8.7 mg/dL (8.4-10.2); Hemolysis Index 15
--- NOTE | 2019-03-14 14:46 | Emergency Department Report ---
ED General Adult HPI - General Chief complaint: Chest Pain Stated complaint: SICK Time Seen by Provider: 03/14/19 12:09 Source: patient, RN notes reviewed, old records reviewed Mode of arrival: Ambulatory Limitations: No Limitations - History of Present Illness Initial comments: This is a 64-year-old gentleman. Past medical history includes reported congestive heart failure, unknown ejection fraction, diabetes, hypertension, insomnia. Patient recently admitted to this hospital for presumed pneumonia, and congestive heart failure exacerbation. The patient signed out AGAINST MEDICAL ADVICE. He presents to the emergency room today indicating that he is now ready for admission. He reports that he feels like he has trouble breathing. However, t his is been going on for some time. He denies headache, neck pain, chest pain, abdominal pain, leg pain, leg swelling. He have a cough, but denies fevers chills, and may have exertional dyspnea. Earlier on today, he was given ceftriaxone, and Lasix. He does not appear to be floridly fluid overloaded at the moment. We will add on blood cultures and azithromycin. Contacted the Hospital physician, Dr. Delta Muro, whose group will reaccept the patient to the medical service. -: Gradual Severity scale (0 -10): 4 Consistency: intermittent Improves with: none Worsens with: none - Related Data Home Medications Medication Instructions Recorded Confirmed Last Taken Aspirin [Aspirin BABY CHEW TAB] 1 tab PO DAILY 08/22/14 09/05/15 09/04/15 81mg Citalopram [celeXA] 40 tab PO DAILY 08/22/14 09/05/15 09/04/15 40 mg Insulin Aspart [NovoLOG Flexpen] 20 - 24 units SC TID 08/22/14 09/05/15 09/04/15 20 Insulin Lispro [Humalog Kwikpen] 40 units SC QHS 08/22/14 09/05/15 09/04/15 40 units Lisinopril 10 mg PO DAILY 08/22/14 09/05/15 09/04/15 10mg [place] Carbonate 600 mg PO BID 08/22/14 09/05/15 09/04/15 300mg Metoprolol [Lopressor TAB] 1 tab PO DAILY 08/22/14 09/05/15 09/04/15 50mg risperiDONE [Risperidone] 2 mg PO DAILY 08/22/14 09/05/15 09/04/15 2mg Mirtazapine [Remeron] 15 mg PO QHS 09/05/15 09/05/15 09/04/15 15mg Oxybutynin [Ditropan] 5 mg PO BID 09/05/15 09/05/15 09/04/15 5mg Ranitidine HCl [Zantac 150 MG TAB] 150 mg PO BID 09/05/15 09/05/15 09/04/15 150mg Rosuvastatin (Nf) [Crestor] 20 mg PO QHS 09/05/15 09/05/15 09/04/15 20mg Tamsulosin [Flomax] 0.4 mg PO BID 09/05/15 09/05/15 09/04/15 0.4mg metFORMIN [Glucophage] 500 mg PO BID 09/05/15 09/05/15 09/04/15 500mg Previous Rx's Medication Instructions Recorded Last Taken Type Ciprofloxacin HCl [Ciprofloxacin 500 mg PO Q12HR 10 Days #20 tab 08/04/18 Unknown Rx TAB] Cyclobenzaprine [Flexeril] 10 mg PO TID PRN #12 tablet 08/04/18 Unknown Rx Zolpidem Tartrate [Ambien] 5 mg PO QHS PRN #3 tablet 02/17/19 Unknown Rx Allergies Allergy/AdvReac Type Severity Reaction Status Date / Time No Known Allergies Allergy Verified 03/14/19 11:30 ED Review of Systems ROS: Stated complaint: SICK Other details as noted in HPI Constitutional: malaise. denies: fever Eyes: denies: eye discharge ENT: congestion Respiratory: cough Cardiovascular: denies: chest pain Gastrointestinal: denies: abdominal pain, vomiting Genitourinary: denies: dysuria Musculoskeletal: denies: back pain Skin: denies: lesions Neurological: denies: weakness ED Past Medical Hx - Past Medical History Hx Hypertension: Yes Hx Diabetes: Yes Hx GERD: Yes Hx Psychiatric Treatment: Yes (Bipolar, Depression) Hx COPD: Yes Hx HIV: No Additional medical history: h/o prostate Ca - Surgical History Additional Surgical History: Prostate seed radiation for prostate cancer - Social History Smoking Status: Current Every Day Smoker Substance Use Type: None - Medications Home Medications: Home Medications Medication Instructions Recorded Confirmed Last Taken Type Aspirin [Aspirin BABY CHEW TAB] 1 tab PO DAILY 08/22/14 09/05/15 09/04/15 History 81mg Citalopram [celeXA] 40 tab PO DAILY 08/22/14 09/05/15 09/04/15 History 40 mg Insulin Aspart [NovoLOG Flexpen] 20 - 24 units SC TID 08/22/14 09/05/15 09/04/15 History 20 Insulin Lispro [Humalog Kwikpen] 40 units SC QHS 08/22/14 09/05/15 09/04/15 History 40 units Lisinopril 10 mg PO DAILY 08/22/14 09/05/15 09/04/15 History 10mg [place] Carbonate 600 mg PO BID 08/22/14 09/05/15 09/04/15 History 300mg Metoprolol [Lopressor TAB] 1 tab PO DAILY 08/22/14 09/05/15 09/04/15 History 50mg risperiDONE [Risperidone] 2 mg PO DAILY 08/22/14 09/05/15 09/04/15 History 2mg Mirtazapine [Remeron] 15 mg PO QHS 09/05/15 09/05/15 09/04/15 History 15mg Oxybutynin [Ditropan] 5 mg PO BID 09/05/15 09/05/15 09/04/15 History 5mg Ranitidine HCl [Zantac 150 MG TAB] 150 mg PO BID 09/05/15 09/05/15 09/04/15 History 150mg Rosuvastatin (Nf) [Crestor] 20 mg PO QHS 09/05/15 09/05/15 09/04/15 History 20mg Tamsulosin [Flomax] 0.4 mg PO BID 09/05/15 09/05/15 09/04/15 History 0.4mg metFORMIN [Glucophage] 500 mg PO BID 09/05/15 09/05/15 09/04/15 History 500mg Ciprofloxacin HCl [Ciprofloxacin 500 mg PO Q12HR 10 Days #20 tab 08/04/18 Unknown Rx TAB] Cyclobenzaprine [Flexeril] 10 mg PO TID PRN #12 tablet 08/04/18 Unknown Rx Zolpidem Tartrate [Ambien] 5 mg PO QHS PRN #3 tablet 02/17/19 Unknown Rx ED Physical Exam - General Limitations: No Limitations General appearance: alert, in no apparent distress - Head Head exam: Present: atraumatic, normocephalic - Eye Eye exam: Present: normal appearance, EOMI. Absent: nystagmus - ENT ENT exam: Present: normal exam, normal orophraynx, mucous membranes moist, normal external ear exam - Neck Neck exam: Present: normal inspection, full ROM. Absent: tenderness, meningismus - Respiratory Respiratory exam: Present: normal lung sounds bilaterally. Absent: respiratory distress - Cardiovascular Cardiovascular Exam: Present: normal rhythm, tachycardia, normal heart sounds. Absent: systolic murmur, diastolic murmur, rubs, gallop - GI/Abdominal GI/Abdominal exam: Present: soft. Absent: distended, tenderness, guarding, rebound, rigid, pulsatile mass - Rectal Rectal exam: Present: deferred - Extremities Exam Extremities exam: Present: normal inspection, full ROM, other (2+ pulses noted in the bilateral upper, lower extremities. Compartments soft. No long bony tenderness. The pelvis is stable.). Absent: calf tenderness - Back Exam Back exam: Present: normal inspection, full ROM. Absent: tenderness, CVA tenderness (R), paraspinal tenderness, vertebral tenderness - Neurological Exam Neurological exam: Present: alert, normal gait, other (Extraocular movements intact. Tongue midline. No facial droop. Facial sensation intact to light touch in the V1, V2, V3 distribution bilaterally. 5 and 5 strength in 4 extremities.. Sensation is intact to light touch in 4 extremities.). Absent: motor sensory deficit - Psychiatric Psychiatric exam: Present: flat affect - Skin Skin exam: Present: warm, dry, intact, normal color. Absent: rash ED Course Vital Signs 03/14/19 03/14/19 03/14/19 12:10 14:53 14:54 Temperature 97.5 F L 98.0 F Pulse Rate 106 H 88 Respiratory 20 28 H 27 H Rate Blood Pressure 154/98 Blood Pressure 142/102 [Left] O2 Sat by Pulse 99 100 100 Oximetry ED Medical Decision Making - Lab Data Result diagrams: 03/14/19 12:23 Vital Signs 03/14/19 12:10 Temperature 97.5 F L Pulse Rate 106 H Respiratory 20 Rate Blood Pressure 154/98 O2 Sat by Pulse 99 Oximetry Lab Results 03/14/19 03/14/19 Range/Units 12:23 12:23 Sodium 136 L (137-145) mmol/L Potassium 4.5 (3.6-5.0) mmol/L Chloride 105.3 (98-107) mmol/L Carbon Dioxide 18 L (22-30) mmol/L Anion Gap 17 mmol/L BUN 10 (9-20) mg/dL Creatinine 1.0 (0.8-1.5) mg/dL Estimated GFR > 60 ml/min BUN/Creatinine Ratio 10 % Glucose 306 H (75-100) mg/dL Calcium 8.7 (8.4-10.2) mg/dL Magnesium 1.90 (1.7-2.3) mg/dL NT-Pro-B Natriuret Pep 1941 H (0-900) pg/mL TSH 1.380 (0.270-4.200) mlU/mL - EKG Data -: EKG Interpreted by Ny EKG shows normal: sinus rhythm Rate: normal (EKG demonstrates a sinus tachycardia, left axis deviation,) - EKG Data 03/14/19 16:35 EKG shows sinus tachycardia, left axis deviation, left anterior fascicular block, atrial enlargement, QTC prolonged, not having chest pain, this is an abnormal EKG, this is not consistent with ST elevation myocardial infarction. - Radiology Data Radiology results: report reviewed, image reviewed Print Report Referring Physician: SHINE SUTHERLAND Patient Name: NIECY KOCH Date of : 1955 Sex: Male Report Date: 2019-03-14 Report Status: Finalized Findings [facility] [address] [place] [address] XRay Report Signed Patient: NIECY KOCH MR#: [id number] : 1955 Acct:[id number] Age/Sex: 64 / M ADM Date: 03/14/19 Loc: ED Attending Dr: Ordering Physician: SHINE SUTHERLAND NP Date of Service: 03/14/19 Procedure(s): XR chest routine 2V Accession Number(s): [id number] cc: SHINE SUTHERLAND NP Fluoro Time In Minutes: PROCEDURE: XR CHEST ROUTINE 2V TECHNIQUE: PA and lateral chest radiographs HISTORY: weakness COMPARISONS: 08/04/2018 FINDINGS: No mediastinal shift. Borderline Cardiomegaly. Right middle lobe opacity with air bronchograms silhouettes the right heart border. Patchy left perihilar opacity. Mild blunting of both costophrenic angles and posterior costophrenic sulci. No pneumothorax. IMPRESSION: Multifocal airspace disease most significant in the right middle lobe with small pleural effusions. Follow-up to resolution is recommended. This document is electronically signed by Sukhdev Jimenez MD., March 14 2019 05:39:29 AM ET Transcribed By: MB Dictated By: SUKHDEV JIMENEZ MD Electronically Authenticated By: SUKHDEV JIMENEZ MD Signed Date/Time: 03/14/1941 DD/ 2 TD/TT: 03/14/19532 - Medical Decision Making Differential diagnosis, including but not limited to: Congestive heart failure, and pneumonia, pleural effusion Assessment and plan: 64-year-old gentleman with this in community-acquired pneumonia, likely reactive pleural effusions, to be admitted for further evaluation and workup. Critical care attestation.: If time is entered above; I have spent that time in minutes in the direct care of this critically ill patient, excluding procedure time. ED Disposition Clinical Impression: CAP (community acquired pneumonia), CHF (congestive heart failure) Disposition: DC-09 OP ADMIT IP TO THIS HOSP Is pt being admited?: Yes Condition: Good
[2019-03-14] MEDS ORDERED: ZITHROMAX PO ONE (14:48)
--- NOTE | 2019-03-14 15:30 | History and Physical Report ---
History of Present Illness Date of examination: 03/14/19 Date of admission: 03/14/2019 Chief complaint: Insomnia and Shortness of Breath History of present illness: Mr. Pantoja is a 64-year-old male with history of CHF, diabetes, hypertension, depression, anger management issues, and prostate cancer who presented to the ED this morning with complaints of difficulty breathing and difficulty sleeping, which has progressively worsened over the past 2 weeks. Briefly, please note patient was seen in the ED on 02/17 with similar complaints. He was given a prescription for Ambien 5 mg and advised to continue all current medication, and follow up with [facility] in 3-5 days. Is not clear whether patient Follow-up appointment. In addition to taking Ambien patient takes Remeron 15 mg, lithium 600 mg, and risperidone 2 mg twice a day Mr. Figueroa is a ongoing smoker that smokes 1 pack per day for the last 42 years. Patient states that she has been taking Ambien but is able to remain sleeping throughout the night. He has periods of interruption and becomes unsteady with ambulation. He feels like this is due to the"medication being in system". He feels that this difficulty breathing is related to anxiety. He attributes his anxiety to job instability/ uncertainty and income worries . Pt was admitted for CHF and insomina earlier today. After initial examination, I received a call from pt's primary nurse, and was advised he wanted to sign out AMA. I went back and spoke with pt and discussed plan of care, and risk a ssociated with signing out AMA. According to patient he needs to go home and drop off the house keys for his , who is presently at work and will not return home until 6pm this evening. I suggested that he call his and let her know that he was at [facility] and can pickle solution maker the keys, when she gets off. Pt become upset and refused to continue the conversation. He sat silent for a few minutes and then insisted that the nurse give him the paperwork to sign. He left AMA at approximately 1030am this morning. He returned to [facility] around 12pm. During my reassessment of patient his oxygen saturation is at 100% on room air and he is able to maintain the saturation while talking. He is now complaining of feeling anxious. Past History Past Medical History: cancer, diabetes, hypertension Past Surgical History: No surgical history Social history: no significant social history Medications and Allergies Allergies Allergy/AdvReac Type Severity Reaction Status Date / Time No Known Allergies Allergy Verified 03/14/19 11:30 Home Medications Medication Instructions Recorded Confirmed Last Taken Type Aspirin [Aspirin BABY CHEW TAB] 1 tab PO DAILY 08/22/14 09/05/15 09/04/15 History 81mg Citalopram [celeXA] 40 tab PO DAILY 08/22/14 09/05/15 09/04/15 History 40 mg Insulin Aspart [NovoLOG Flexpen] 20 - 24 units SC TID 08/22/14 09/05/15 09/04/15 History 20 Insulin Lispro [Humalog Kwikpen] 40 units SC QHS 08/22/14 09/05/15 09/04/15 History 40 units Lisinopril 10 mg PO DAILY 08/22/14 09/05/15 09/04/15 History 10mg [place] Carbonate 600 mg PO BID 08/22/14 09/05/15 09/04/15 History 300mg Metoprolol [Lopressor TAB] 1 tab PO DAILY 08/22/14 09/05/15 09/04/15 History 50mg risperiDONE [Risperidone] 2 mg PO DAILY 08/22/14 09/05/15 09/04/15 History 2mg Mirtazapine [Remeron] 15 mg PO QHS 09/05/15 09/05/15 09/04/15 History 15mg Oxybutynin [Ditropan] 5 mg PO BID 09/05/15 09/05/15 09/04/15 History 5mg Ranitidine HCl [Zantac 150 MG TAB] 150 mg PO BID 09/05/15 09/05/15 09/04/15 History 150mg Rosuvastatin (Nf) [Crestor] 20 mg PO QHS 09/05/15 09/05/15 09/04/15 History 20mg Tamsulosin [Flomax] 0.4 mg PO BID 09/05/15 09/05/15 09/04/15 History 0.4mg metFORMIN [Glucophage] 500 mg PO BID 09/05/15 09/05/15 09/04/15 History 500mg Ciprofloxacin HCl [Ciprofloxacin 500 mg PO Q12HR 10 Days #20 tab 08/04/18 Unknown Rx TAB] Cyclobenzaprine [Flexeril] 10 mg PO TID PRN #12 tablet 08/04/18 Unknown Rx Zolpidem Tartrate [Ambien] 5 mg PO QHS PRN #3 tablet 02/17/19 Unknown Rx Review of Systems Constitutional: weight loss Ears, nose, mouth and throat: decreased hearing, no nasal congestion, no nasal discharge, no epistaxis Cardiovascular: edema, shortness of breath, no chest pain, no palpitations Respiratory: cough with sputum, no excessive sputum, no wheezing, no sleep apnea Gastrointestinal: no nausea, no vomiting, no diarrhea, no constipation Genitourinary Male: no dysuria, no flank pain, no urinary frequency, no nocturia Rectal: no pain Musculoskeletal: frequent falls, no neck stiffness, no gait dysfunction Integumentary: no rash, no redness, no wounds Neurological: no head injury, no weakness, no parathesias, no numbness, no t ingling Psychiatric: anxiety, change in sleep habits, sleep disturbances, insomnia, depression, no change in appetite, no change in libido, no suicidal ideation, no hallucinations Endocrine: no polydipsia, no polyuria, no nocturia Hematologic/Lymphatic: no easy bruising Allergic/Immunologic: no wheezing Exam - Physical Exam Narrative exam: General appearance: Present: no acute distress - EENT Eyes: Present: PERRL, EOM intact ENT: clear oral mucosa, poor dentition - Neck Neck: Present: supple - Respiratory Respiratory effort: other (non-labored) Respiratory: bilateral: diminished (bases) - Cardiovascular Rhythm: regular Heart Sounds: Present: S1 & S2 - Extremities Extremities: pulses intact Extremity abnormal: edema - Peripheral Assessment Lower Extremity Edema Type: Pitting Edema Degree: 1+ Peripheral Pulses: within normal limits - Abdominal General gastrointestinal: Present: deferred, non-tender Male genitourinary: Present: deferred - Rectal Rectal Exam: deferred - Integumentary Integumentary: Present: warm, dry - Musculoskeletal Musculoskeletal: strength equal bilaterally - Psychiatric Psychiatric: cooperative, agitated - Neurologic Neurologic: CNII-XII intact - Constitutional Vitals: Temp Pulse Resp BP Pulse Ox 98.0 F 88 27 H 142/102 100 03/14/19 14:53 03/14/19 14:53 03/14/19 14:54 03/14/19 14:53 03/14/19 14:54 General appearance: Present: no acute distress Results - Labs CBC & Chem 7: 03/14/19 12:23 Labs: Laboratory Last Values Sodium 136 mmol/L (137-145) L 03/14/19 12:23 Potassium 4.5 mmol/L (3.6-5.0) 03/14/19 12:23 Chloride 105.3 mmol/L (98-107) 03/14/19 12:23 Carbon Dioxide 18 mmol/L (22-30) L 03/14/19 12:23 Anion Gap 17 mmol/L 03/14/19 12:23 BUN 10 mg/dL (9-20) 03/14/19 12:23 Creatinine 1.0 mg/dL (0.8-1.5) 03/14/19 12:23 Estimated GFR > 60 ml/min 03/14/19 12:23 BUN/Creatinine Ratio 10 % 03/14/19 12:23 Glucose 306 mg/dL (75-100) H 03/14/19 12:23 Calcium 8.7 mg/dL (8.4-10.2) 03/14/19 12:23 Magnesium 1.90 mg/dL (1.7-2.3) 03/14/19 12:23 NT-Pro-B Natriuret Pep 1941 pg/mL (0-900) H 03/14/19 12:23 TSH 1.380 mlU/mL (0.270-4.200) 03/14/19 12:23 Assessment and Plan Assessment and plan: 64 y.o male with history of CHF, uncontrolled DM, HTN, and insomnia who was seen in the ED this earlier this morning. At the time of my examination patient is awake, alert and oriented 3 sitting up in the stretcher, on room air with saturation of 100%. Insomnia Currently taking Ambien 5mg daily States that his inability to sleep is related to anxiety and job uncertainty Psych consulted CHF CXR this am shows borderline cardiomegaly, multifocal airspace disease most significant in RML with small pleural effusion. ECG this am initial results revealed LA enlargement, and LVH with secondary repolarization abnormality- pending finalized read Continue HF Meds to optimize cardiac function Order Echo DM BG this am 285 BG @ noon 306 Start POC monitoring with SSI coverage Start Lantus 10u HS HTN Monitor BP and continue antihypertensive to optimize BP Depression Continue home meds: Remeron, Risperidone, and lithium Consult to psych pending Anxiety Start alprazolam prn Hx of Anger issues Hx of Prostate CA Advance Directives: No VTE prophylaxis?: Chemical, Mechanical
[2019-03-14] MEDS ORDERED: ZOFRAN IV PRN (15:43)
[2019-03-14] MEDS ORDERED: SODIUM CHLORIDE FLUSH SYRINGE 10 ML IV PRN (15:43)
[2019-03-14] MEDS ORDERED: TYLENOL PO PRN (15:43)
[2019-03-14] MEDS ORDERED: NARCAN 0.4 MG/1 ML IV PRN (15:43)
[2019-03-14] MEDS ORDERED: D50W (25GM) Syringe IV PRN ×2 (15:43)
[2019-03-14] MEDS ORDERED: MORPHINE IV PRN (15:43)
[2019-03-14] MEDS ORDERED: HumaLOG SUB-Q ONE (16:36)
[2019-03-14] MEDS: HumaLOG SUB-Q SCH ×2 (16:44→21:28)
[2019-03-14 16:54] LABS: Chol/HDL Ratio 3.25 %
[2019-03-14] MEDS: LOVENOX SUB-Q SCH (21:24)
[2019-03-14] MEDS: XANAX PO PRN (21:24)
[2019-03-14] MEDS: COLACE PO SCH (21:24)
[2019-03-14] MEDS: SODIUM CHLORIDE FLUSH SYRINGE 10 ML IV SCH (21:25)
[2019-03-14] MEDS: LANTUS SUB-Q SCH (21:27)
[2019-03-14] MEDS: PROVENTIL IH PRN (21:35)
[2019-03-14] MEDS: AMBIEN PO PRN (23:30)
[2019-03-15] MEDS: HumaLOG SUB-Q SCH ×4 (09:56→22:43)
[2019-03-15] MEDS: ZESTRIL PO SCH (09:59)
[2019-03-15] MEDS: BABY ASPIRIN PO SCH (09:59)
[2019-03-15] MEDS: COLACE PO SCH ×2 (10:00→22:22)
[2019-03-15] MEDS ORDERED: celeXA PO SCH (10:00)
[2019-03-15] MEDS: LOVENOX SUB-Q SCH ×2 (10:00→22:22)
[2019-03-15] MEDS: SODIUM CHLORIDE FLUSH SYRINGE 10 ML IV SCH ×2 (10:00→22:29)
[2019-03-15] MEDS ORDERED: AFLURIA QUAD 2018-2019 SYRINGE IM ONE (12:00)
[2019-03-15] MEDS: PROVENTIL IH PRN (12:16)
--- NOTE | 2019-03-15 12:25 | Progress Note ---
Assessment and Plan Assessment and plan: Acute combined systolic and diastolic heart failure. Echocardiogram reveals severe 4 chamber dilated cardiomyopathy. EF is 10-15%. Mild concentric left ventricular hypertrophy observed. Start IV Lasix daily. Chest x-ray reveals bilateral pleural effusions. Cardiology consultation pending. Dilated cardiomyopathy. As above. LV thrombus. Echo revealed Apical LV thrombus present measuring 2.2 cm in largest diameter. Continue Lovenox 80 twice a day and start Coumadin. Cardiology consultation pending. Mild to moderate pulmonary hypertension. Right ventricular systolic pressure is 38 mmHg Acute COPD exacerbation. Start COPD pathway, bronchodilators/nebulizers and IV steroids Bilateral community-acquired pneumonia. Chest x-ray reveals right middle lobe opacity with air bronchograms and a left perihilar opacity. Start IV antibiotics Acute hypoxemic respiratory failure. Etiology secondary to pulmonary hypertension, COPD exacerbation and heart failure. Continue O2. Diabetes mellitus type 2. Continue Accu-Cheks, Lantus and sliding scale insulin. Hypertension. Resume antihypertensive medications. Depression. Continue home meds: Remeron, Risperidone, and lithium Consult to psych pending Insomnia. Continue Ambien. Tobacco abuse. Patient with a [id number] history. Patient will be counseled on smoking cessation. History Interval history: Patient still complains of shortness of breath. Patient with conversational dyspnea. Patient denies chest pain. Hospitalist Physical - Constitutional Vitals: Temp Pulse Resp BP Pulse Ox 97.5 F L 74 22 116/88 100 03/15/19 11:31 03/15/19 11:30 03/15/19 11:31 03/15/19 11:31 03/15/19 11:30 General appearance: Present: no acute distress - EENT Eyes: Present: PERRL, EOM intact ENT: hearing intact, clear oral mucosa, dentition normal - Neck Neck: Present: supple, normal ROM - Respiratory Respiratory effort: normal Respiratory: bilateral: diminished, rales - Cardiovascular Rhythm: regular Heart Sounds: Present: S1 & S2. Absent: gallop, rub - Extremities Extremities: no ischemia, No edema, Full ROM - Abdominal General gastrointestinal: soft, non-tender, non-distended, normal bowel sounds - Integumentary Integumentary: Present: clear, warm, dry - Neurologic Neurologic: CNII-XII intact, moves all extremities Results - Labs CBC & Chem 7: 03/14/19 12:23 Labs: Laboratory Last Values Sodium 136 mmol/L (137-145) L 03/14/19 12:23 Potassium 4.5 mmol/L (3.6-5.0) 03/14/19 12:23 Chloride 105.3 mmol/L (98-107) 03/14/19 12:23 Carbon Dioxide 18 mmol/L (22-30) L 03/14/19 12:23 Anion Gap 17 mmol/L 03/14/19 12:23 BUN 10 mg/dL (9-20) 03/14/19 12:23 Creatinine 1.0 mg/dL (0.8-1.5) 03/14/19 12:23 Estimated GFR > 60 ml/min 03/14/19 12:23 BUN/Creatinine Ratio 10 % 03/14/19 12:23 Glucose 306 mg/dL (75-100) H 03/14/19 12:23 POC Glucose 174 (70-105) H 03/15/19 11:36 Hemoglobin A1c 8.1 % (4-6) H 03/14/19 16:48 Calcium 8.7 mg/dL (8.4-10.2) 03/14/19 12:23 Magnesium 1.90 mg/dL (1.7-2.3) 03/14/19 12:23 NT-Pro-B Natriuret Pep 1893 pg/mL (0-900) H 03/14/19 12:23 Triglycerides 87 mg/dL (2-149) 03/14/19 12:23 Cholesterol 166 mg/dL (50-199) 03/14/19 12:23 LDL Cholesterol Direct 116 mg/dL (50-130) 03/14/19 12:23 HDL Cholesterol 51 mg/dL (40-59) 03/14/19 12:23 Cholesterol/HDL Ratio 3.25 % 03/14/19 12:23 TSH 1.380 mlU/mL (0.270-4.200) 03/14/19 12:23 [place] 0.3 mmol/L (0.0-1.2) 03/14/19 15:09 Active Medications - Current Medications Current Medications: Generic Name Dose Route Start Last Admin Trade Name Freq PRN Reason Stop Dose Admin Acetaminophen 650 mg 03/14/19 15:43 Tylenol PO Q4H PRN Pain MILD(1-3)/Fever >100.5/RAMOS Albuterol 2.5 mg 03/14/19 21:23 03/15/19 12:16 Proventil IH 2.5 mg Q4HRT PRN Administration Shortness Of Breath Alprazolam 0.5 mg 03/14/19 16:19 03/14/19 21:24 Xanax PO 0.5 mg Q8HR PRN Administration Anxiety Aspirin 81 mg 03/15/19 10:00 03/15/19 09:59 Baby Aspirin PO 81 mg DAILY YADY Administration Citalopram Hydrobromide 40 mg 03/15/19 10:00 03/15/19 10:00 Celexa PO 40 mg DAILY YADY Administration Dextrose 50 ml 03/14/19 15:43 D50w (25gm) Syringe IV PRN PRN Hypoglycemia Dextrose 50 ml 03/14/19 15:43 D50w (25gm) Syringe IV PRN PRN Hypoglycemia Docusate Sodium 100 mg 03/14/19 22:00 03/15/19 10:00 Colace PO 100 mg BID YADY Administration Enoxaparin Sodium 80 mg 03/14/19 22:00 03/15/19 10:00 Lovenox SUB-Q 80 mg Q12HR YADY Administration Insulin Glargine 10 units 03/14/19 22:00 03/14/19 21:27 Lantus SUB-Q Not Given QHS [facility] Insulin Human Lispro 0 unit 03/14/19 16:30 03/15/19 09:56 Humalog SUB-Q 2 unit ACHS YADY Administration Protocol Lisinopril 10 mg 03/15/19 10:00 03/15/19 09:59 Zestril PO 10 mg DAILY YADY Administration Morphine Sulfate 2 mg 03/14/19 15:43 Morphine IV Q4H PRN Pain, Moderate (4-6) Naloxone HCl 0.1 mg 03/14/19 15:43 Narcan 0.4 Mg/1 Ml IV Q2MIN PRN Res Rate </= 8 or 02 SAT < 92% Ondansetron HCl 4 mg 03/14/19 15:43 Zofran IV Q8H PRN Nausea And Vomiting Sodium Chloride 10 ml 03/14/19 22:00 03/15/19 10:00 Sodium Chloride Flush Syringe 10 Ml IV 10 ml BID YADY Administration Sodium Chloride 10 ml 03/14/19 15:43 Sodium Chloride Flush Syringe 10 Ml IV PRN PRN LINE FLUSH Zolpidem Tartrate 5 mg 03/14/19 15:43 03/14/19 23:30 Ambien PO 5 mg QHS PRN Administration Insomnia Nutrition/Malnutrition Assess - Dietary Evaluation Nutrition/Malnutrition Findings: Nutrition Notes Start: 03/15/19 09:53 Freq: Status: Active Protocol: Document 03/15/19 09:53 CP (Rec: 03/15/19 09:54 CP [id number]) Co-Sign 03/15/19 09:53 LP Nutrition Notes Need for Assessment generated from: MD Order,Education,Low BMI Initial or Follow up Brief Note [place] [address] Body Weight (kg) 0 Subjective/Other Information MD consult for diet education and RD screen for low BMI. Pt was not in room at time of visit and has a BMI of 24.3. Nutrition Intervention Follow-Up By: 03/16/19 Additional Comments F/u: Diet education (DM)
[2019-03-15] MEDS: SOLU-Medrol IV SCH ×2 (13:40→22:25)
[2019-03-15] MEDS: LASIX IV SCH (13:40)
[2019-03-15] MEDS: K-DUR PO SCH (13:41)
[2019-03-15] MEDS: XANAX PO PRN (13:41)
[2019-03-15] MEDS: HABITROL TD SCH (14:31)
[2019-03-15] MEDS: DUONEB *Not for PRN Use IH SCH ×2 (15:21→19:33)
[2019-03-15] MEDS: ROCEPHIN/NS 2 GM/100 ML 2 GM/100 ML BAG IV SCH (15:27)
[2019-03-15] MEDS: ZITHROMAX 500 MG in NACL 0.9% 250ML 250 ML IV SCH (15:27)
--- NOTE | 2019-03-15 15:56 | Consultation ---
History of Present Illness - Reason for Consult Consult date: 03/15/19 Reason for consult: Mental Health EValuation Requesting physician: TYRON INMAN - Chief Complaint Chief complaint: "I having problem sleeping" - History of Present Psychiatric Illness 64 y.o. AA male who presented to the ER for SOB. Psychiatry was consulted to see the patient for medication mgmt. Today the patient is calm and cooperative during t he assessment. He stated hat he is seen by Dr Orourke for outpatient psy services (Bipolar DO), He stated that he is complaint with his medications when asked. He stated that he saw Dr Orourke 3 days ago. He denies any previous inpatient admissions and suicide attempts. He denies any manic episode recently. He denies SI/HI's and AVH's. He denies a poor appetite, but acknowledged erratic sleep. He denies recreational drug use and alcohol consumption (etoh) Medications and Allergies Allergies Allergy/AdvReac Type Severity Reaction Status Date / Time No Known Allergies Allergy Verified 03/14/19 11:30 Home Medications Medication Instructions Recorded Confirmed Last Taken Type Aspirin [Aspirin BABY CHEW TAB] 1 tab PO DAILY 08/22/14 03/14/19 03/13/19 History Citalopram [celeXA] 40 tab PO DAILY 08/22/14 03/14/19 03/13/19 History Insulin Aspart [NovoLOG Flexpen] 20 - 24 units SC TID 08/22/14 03/14/19 03/13/19 History Insulin Lispro [Humalog Kwikpen] 40 units SC QHS 08/22/14 03/14/19 03/13/19 History Lisinopril 10 mg PO DAILY 08/22/14 03/14/19 03/13/19 History [place] Carbonate 600 mg PO BID 08/22/14 03/14/19 03/13/19 History Metoprolol [Lopressor TAB] 50 tab PO DAILY 08/22/14 03/14/19 03/13/19 History risperiDONE [Risperidone] 2 mg PO DAILY 08/22/14 03/14/19 03/13/19 History Mirtazapine [Remeron] 15 mg PO QHS 09/05/15 03/14/19 03/13/19 History Oxybutynin [Ditropan] 5 mg PO BID 09/05/15 03/14/19 03/13/19 History Ranitidine HCl [Zantac 150 MG TAB] 150 mg PO BID 09/05/15 03/14/19 03/13/19 History Rosuvastatin (Nf) [Crestor] 20 mg PO QHS 09/05/15 03/14/19 03/13/19 History Tamsulosin [Flomax] 0.4 mg PO BID 09/05/15 03/14/19 03/13/19 History metFORMIN [Glucophage] 500 mg PO BID 09/05/15 03/14/19 03/13/19 History Cyclobenzaprine [Flexeril] 10 mg PO TID PRN #12 tablet 08/04/18 03/14/19 03/13/19 Rx Zolpidem Tartrate [Ambien] 5 mg PO QHS PRN #3 tablet 02/17/19 03/14/19 03/13/19 Rx NovoLIN 70/30 35 units SQ DAILY 03/14/19 03/14/19 03/13/19 History Active Meds: Active Medications Acetaminophen (Tylenol) 650 mg PO Q4H PRN PRN Reason: Pain MILD(1-3)/Fever >100.5/RAMOS Albuterol (Proventil) 2.5 mg IH Q4HRT PRN PRN Reason: Shortness Of Breath Last Admin: 03/15/19 12:16 Dose: 2.5 mg Documented by: Albuterol/Ipratropium (Duoneb *Not For Prn Use*) 1 ampul IH Q6HRT [facility] Last Admin: 03/15/19 15:21 Dose: 1 ampul Documented by: Alprazolam (Xanax) 0.5 mg PO Q8HR PRN PRN Reason: Anxiety Last Admin: 03/15/19 13:41 Dose: 0.5 mg Documented by: Aspirin (Baby Aspirin) 81 mg PO DAILY [facility] Last Admin: 03/15/19 09:59 Dose: 81 mg Documented by: Dextrose (D50w (25gm) Syringe) 50 ml IV PRN PRN PRN Reason: Hypoglycemia Docusate Sodium (Colace) 100 mg PO BID [facility] Last Admin: 03/15/19 10:00 Dose: 100 mg Documented by: Enoxaparin Sodium (Lovenox) 80 mg SUB-Q Q12HR [facility] Last Admin: 03/15/19 10:00 Dose: 80 mg Documented by: Furosemide (Lasix) 40 mg IV QDAY [facility] Last Admin: 03/15/19 13:40 Dose: 40 mg Documented by: Azithromycin 500 mg/ Sodium (Chloride) 250 mls @ 250 mls/hr IV Q24HR [facility]; Protocol Last Admin: 03/15/19 15:27 Dose: 250 mls/hr Documented by: Ceftriaxone Sodium (Rocephin/Ns 2 Gm/100 Ml) 2 gm in 100 mls @ 200 mls/hr IV Q24HR [facility]; Protocol Last Admin: 03/15/19 15:27 Dose: 200 mls/hr Documented by: Insulin Glargine (Lantus) 10 units SUB-Q QHS [facility] Last Admin: 03/14/19 21:27 Dose: Not Given Documented by: Insulin Human Lispro (Humalog) 0 unit SUB-Q ACHS [facility]; Protocol Last Admin: 03/15/19 12:54 Dose: 2 unit Documented by: Lisinopril (Zestril) 10 mg PO DAILY [facility] Last Admin: 03/15/19 09:59 Dose: 10 mg Documented by: Methylprednisolone Sodium Succinate (Solu-Medrol) 40 mg IV Q8HR [facility] Last Admin: 03/15/19 13:40 Dose: 40 mg Documented by: Montelukast Sodium (Singulair) 10 mg PO QHS [facility] Morphine Sulfate (Morphine) 2 mg IV Q4H PRN PRN Reason: Pain, Moderate (4-6) Naloxone HCl (Narcan 0.4 Mg/1 Ml) 0.1 mg IV Q2MIN PRN PRN Reason: Res Rate </= 8 or 02 SAT < 92% Nicotine (Habitrol) 14 mg TD QDAY [facility] Last Admin: 03/15/19 14:31 Dose: 14 mg Documented by: Ondansetron HCl (Zofran) 4 mg IV Q8H PRN PRN Reason: Nausea And Vomiting Potassium Chloride (K-Dur) 10 meq PO QDAY [facility] Last Admin: 03/15/19 13:41 Dose: 10 meq Documented by: Risperidone (Risperdal) 1 mg PO [facility] Sodium Chloride (Sodium Chloride Flush Syringe 10 Ml) 10 ml IV BID [facility] Last Admin: 03/15/19 10:00 Dose: 10 ml Documented by: Sodium Chloride (Sodium Chloride Flush Syringe 10 Ml) 10 ml IV PRN PRN PRN Reason: LINE FLUSH Zolpidem Tartrate (Ambien) 5 mg PO QHS PRN PRN Reason: Insomnia Last Admin: 03/14/19 23:30 Dose: 5 mg Documented by: Past psychiatric history - Past Medical History Past Medical History: heart failure, other (Prostate Cancer) Past Surgical History: No surgical history - past Psychiatric treatment and history psychiatric treatment history: Hx of Bipolar DO. Denies a fam psy hx. - Social History Social history: lives with family Mental Status Exam - Vital signs Last Vital Signs Temp 97.5 F L 03/15/19 11:31 Pulse 92 H 03/15/19 15:33 Resp 20 03/15/19 15:33 BP 116/88 03/15/19 11:31 Pulse Ox 100 03/15/19 11:30 - Exam Narrative exam: MSE: Appearance: calm, cooperative Behavior: regular eye contact Speech: regular rate and tone Mood: "tired" Affect: flat Thought Process: circumstantial Thought Content: denies SI/HI's and AVH's Motor Activity: ambulatory Cognition: A/O x 3 Insight: fair Judgment: fair Results Result Diagrams: 03/16/19 06:58 03/16/19 06:58 Abnormal lab results 03/14/19 03/14/19 03/14/19 Range/Units 12:23 16:36 16:48 POC Glucose 289 H (70-105) Hemoglobin A1c 8.1 H (4-6) % NT-Pro-B Natriuret Pep 1893 H (0-900) pg/mL 03/14/19 03/15/19 03/15/19 Range/Units 21:27 08:09 11:36 POC Glucose 134 H 162 H 174 H (70-105) Hemoglobin A1c (4-6) % NT-Pro-B Natriuret Pep (0-900) pg/mL All other labs normal. Assessment and Plan Assessment and plan: Impression: Hx of Bipolar DO. Insomnia. Today the patient is calm and cooperative during the assessment. . Recommendation/Plan: Start Risperdal 1 mg Po HS for mood and continue Ambien 5 mg PO HS PRN for sleep. Discussed possible metabolic side effects of Risperdal with patient. Staffed with Dr Silvia Turner.
--- NOTE | 2019-03-15 19:33 | Consultation ---
History of Present Illness Consult date: 03/15/19 Reason for consult: dyspnea, other (Anxiety.) History of present illness: PULMONARY AND CRITICAL CARE CONSULTATION DR. PANTOJA THANK YOU FOR ASKING US TO PARTICIPATE IN THE CARE OF THIS PATIENT. mr. Pantoja is a 64-year-old male with history of CHF, diabetes, hypertension, depression, anger management issues, and prostate cancer who presented to the ED this morning with complaints of difficulty breathing and difficulty sleeping, which has progressively worsened over the past 2 weeks. Briefly, please note patient was seen in the ED on 02/17 with similar complaints. He was given a prescription for Ambien 5 mg and advised to continue all current medication, and follow up with [facility] in 3-5 days. Is not clear whether patient Follow-up appointment. In addition to taking Ambien patient takes Remeron 15 mg, lithium 600 mg, and risperidone 2 mg twice a day Mr. Figueroa is a ongoing smoker that smokes 1 pack per day for the last 42 years. Patient states that she has been taking Ambien but is able to remain sleeping throughout the night. He has periods of interruption and becomes unsteady with ambulation. He feels that this difficulty breathing is related to anxiety. He attributes his anxiety to job instability/ uncertainty and income worries . Patient admitted to the Hospital but he left AMA at approximately 1030am this morning. He returned back to [facility] around 12pm. Patient oxygen saturation is 100% on room air . Patient is in deep sleep at this time. Not responding to verbal stimuli. No acute respiratory distress. Past History Past Medical History: diabetes, heart failure, hypertension, other (Prostate cancer, depression, anxiety.) Past Surgical History: No surgical history Social history: lives with family, smoking Medications and Allergies Allergies Allergy/AdvReac Type Severity Reaction Status Date / Time No Known Allergies Allergy Verified 03/14/19 11:30 Home Medications Medication Instructions Recorded Confirmed Last Taken Type Aspirin [Aspirin BABY CHEW TAB] 1 tab PO DAILY 08/22/14 03/14/19 03/13/19 History Citalopram [celeXA] 40 tab PO DAILY 08/22/14 03/14/19 03/13/19 History Insulin Aspart [NovoLOG Flexpen] 20 - 24 units SC TID 08/22/14 03/14/19 03/13/19 History Insulin Lispro [Humalog Kwikpen] 40 units SC QHS 08/22/14 03/14/19 03/13/19 History Lisinopril 10 mg PO DAILY 08/22/14 03/14/19 03/13/19 History [place] Carbonate 600 mg PO BID 08/22/14 03/14/19 03/13/19 History Metoprolol [Lopressor TAB] 50 tab PO DAILY 08/22/14 03/14/19 03/13/19 History risperiDONE [Risperidone] 2 mg PO DAILY 08/22/14 03/14/19 03/13/19 History Mirtazapine [Remeron] 15 mg PO QHS 09/05/15 03/14/19 03/13/19 History Oxybutynin [Ditropan] 5 mg PO BID 09/05/15 03/14/19 03/13/19 History Ranitidine HCl [Zantac 150 MG TAB] 150 mg PO BID 09/05/15 03/14/19 03/13/19 History Rosuvastatin (Nf) [Crestor] 20 mg PO QHS 09/05/15 03/14/19 03/13/19 History Tamsulosin [Flomax] 0.4 mg PO BID 09/05/15 03/14/19 03/13/19 History metFORMIN [Glucophage] 500 mg PO BID 09/05/15 03/14/19 03/13/19 History Cyclobenzaprine [Flexeril] 10 mg PO TID PRN #12 tablet 08/04/18 03/14/19 03/13/19 Rx Zolpidem Tartrate [Ambien] 5 mg PO QHS PRN #3 tablet 02/17/19 03/14/19 03/13/19 Rx NovoLIN 70/30 35 units SQ DAILY 03/14/19 03/14/19 03/13/19 History Active Meds: Active Medications Acetaminophen (Tylenol) 650 mg PO Q4H PRN PRN Reason: Pain MILD(1-3)/Fever >100.5/RAMOS Albuterol (Proventil) 2.5 mg IH Q4HRT PRN PRN Reason: Shortness Of Breath Last Admin: 03/15/19 12:16 Dose: 2.5 mg Documented by: Albuterol/Ipratropium (Duoneb *Not For Prn Use*) 1 ampul IH Q6HRT REPLACED BY [facility] Last Admin: 03/15/19 15:21 Dose: 1 ampul Documented by: Alprazolam (Xanax) 0.5 mg PO Q8HR PRN PRN Reason: Anxiety Last Admin: 03/15/19 13:41 Dose: 0.5 mg Documented by: Aspirin (Baby Aspirin) 81 mg PO DAILY [facility]PL[facility] Last Admin: 03/15/19 09:59 Dose: 81 mg Documented by: Dextrose (D50w (25gm) Syringe) 50 ml IV PRN PRN PRN Reason: Hypoglycemia Docusate Sodium (Colace) 100 mg PO BID [facility]PLACED BY [facility] Last Admin: 03/15/19 10:00 Dose: 100 mg Documented by: Enoxaparin Sodium (Lovenox) 80 mg SUB-Q Q12HR REPLACED BY [facility] Last Admin: 03/15/19 10:00 Dose: 80 mg Documented by: Furosemide (Lasix) 40 mg IV QDAY REPLACED BY [facility] Last Admin: 03/15/19 13:40 Dose: 40 mg Documented by: Azithromycin 500 mg/ Sodium (Chloride) 250 mls @ 250 mls/hr IV Q24HR REPLACED BY [facility]; Protocol Last Admin: 03/15/19 15:27 Dose: 250 mls/hr Documented by: Ceftriaxone Sodium (Rocephin/Ns 2 Gm/100 Ml) 2 gm in 100 mls @ 200 mls/hr IV Q24HR REPLACED BY [facility]; Protocol Last Admin: 03/15/19 15:27 Dose: 200 mls/hr Documented by: Insulin Glargine (Lantus) 10 units SUB-Q QHS REPLACED BY [facility] Last Admin: 03/14/19 21:27 Dose: Not Given Documented by: Insulin Human Lispro (Humalog) 0 unit SUB-Q ACHS REPLACED BY [facility]; Protocol Last Admin: 03/15/19 16:57 Dose: Not Given Documented by: Lisinopril (Zestril) 10 mg PO DAILY REPLACED BY [facility] Last Admin: 03/15/19 09:59 Dose: 10 mg Documented by: Methylprednisolone Sodium Succinate (Solu-Medrol) 40 mg IV Q8HR REPLACED BY [facility] Last Admin: 03/15/19 13:40 Dose: 40 mg Documented by: Montelukast Sodium (Singulair) 10 mg PO QHS REPLACED BY [facility] Morphine Sulfate (Morphine) 2 mg IV Q4H PRN PRN Reason: Pain, Moderate (4-6) Naloxone HCl (Narcan 0.4 Mg/1 Ml) 0.1 mg IV Q2MIN PRN PRN Reason: Res Rate </= 8 or 02 SAT < 92% Nicotine (Habitrol) 14 mg TD QDAY REPLACED BY [facility] Last Admin: 03/15/19 14:31 Dose: 14 mg Documented by: Ondansetron HCl (Zofran) 4 mg IV Q8H PRN PRN Reason: Nausea And Vomiting Potassium Chloride (K-Dur) 10 meq PO QDAY REPLACED BY [facility] Last Admin: 03/15/19 13:41 Dose: 10 meq Documented by: Risperidone (Risperdal) 1 mg PO HS REPLACED BY [facility] Sodium Chloride (Sodium Chloride Flush Syringe 10 Ml) 10 ml IV BID REPLACED BY [facility] Last Admin: 03/15/19 10:00 Dose: 10 ml Documented by: Sodium Chloride (Sodium Chloride Flush Syringe 10 Ml) 10 ml IV PRN PRN PRN Reason: LINE FLUSH Zolpidem Tartrate (Ambien) 5 mg PO QHS PRN PRN Reason: Insomnia Last Admin: 03/14/19 23:30 Dose: 5 mg Documented by: Review of Systems All systems: negative Physical Examination Vital signs: Vital Signs Temp Pulse Resp BP Pulse Ox 97.5 F L 106 H 20 154/98 99 03/14/19 12:10 03/14/19 12:10 03/14/19 12:10 03/14/19 12:10 03/14/19 12:10 General appearance: no acute distress, asleep Eyes: non-icteric ENT: oropharynx moist Neck: supple, no JVD Ascultation: Bilateral: rales Cardiovascular: regular rate and rhythm Gastrointestinal: normoactive bowel sounds, soft, non-tender Integumentary: normal Extremities: no cyanosis, no edema Musculoskeletal: no deformities Gait: other (Patient sleeping. Can not assess.) other (Patient sleeping at this time.) other (Patient sleeping at this time.) Results - Laboratory Findings CBC and BMP: 03/16/19 06:58 03/16/19 06:58 Abnormal lab findings: Abnormal Labs 03/14/19 03/14/19 03/14/19 12:23 12:23 16:36 Sodium 136 L Carbon Dioxide 18 L Glucose 306 H POC Glucose 289 H Hemoglobin A1c NT-Pro-B Natriuret Pep 1941 H 1893 H 03/14/19 03/14/19 03/15/19 16:48 21:27 08:09 Sodium Carbon Dioxide Glucose POC Glucose 134 H 162 H Hemoglobin A1c 8.1 H NT-Pro-B Natriuret Pep 03/15/19 03/15/19 11:36 16:50 Sodium Carbon Dioxide Glucose POC Glucose 174 H 111 H Hemoglobin A1c NT-Pro-B Natriuret Pep Assessment and Plan mr. Pantoja is a 64-year-old male with history of CHF, diabetes, hypertension, depression, anger management issues, and prostate cancer who presented to the ED this morning with complaints of difficulty breathing and difficulty sleeping, which has progressively worsened over the past 2 weeks. Briefly, please note patient was seen in the ED on 02/17 with similar complaints. He was given a prescription for Ambien 5 mg and advised to continue all current medication, and follow up with [facility] in 3-5 days. Is not clear whether patient Follow-up appointment. In addition to taking Ambien patient takes Remeron 15 mg, lithium 600 mg, and risperidone 2 mg twice a day Mr. Figueroa is a ongoing smoker that smokes 1 pack per day for the last 42 years. Patient states that she has been taking Ambien but is able to remain sleeping throughout the night. He has periods of interruption and becomes unsteady with ambulation. He feels that this difficulty breathing is related to anxiety. He attributes his anxiety to job instability/ uncertainty and income worries . Patient admitted to the Hospital but he left AMA at approximately 1030am this morning. He returned back to [facility] around 12pm. Patient oxygen saturation is 100% on room air . Patient is in deep sleep at this time. Not responding to verbal stimuli. No acute respiratory distress. - Patient Problems (1) CHF (congestive heart failure) Current Visit: Yes Status: Acute Plan to address problem: Patient is on I/V Lasix and lisonipril. (2) COPD (chronic obstructive pulmonary disease) Current Visit: Yes Status: Acute Plan to address problem: Possible with history of heavy smoking. Apbuterol/atrovent aerosol treatments q 6 hours. Continue I/V solumedrol. Patient is on S/C Lovenox. Patient is on Zithromax and ceftrioxone. Recommend GI Prophylaxis. Chest xray PA and lateral ABGs on room air. PFTs as out patient. (3) Tobacco use disorder Current Visit: Yes Status: Acute Plan to address problem: Ptient is on Nicotine patch. Will securities counselor him to stop smoking. (4) Prostate cancer Current Visit: Yes Status: Acute Plan to address problem: Recommend to consult urology. (5) Diabetes Current Visit: Yes Status: Acute Plan to address problem: Management as per primary care. (6) Hypertension Current Visit: Yes Status: Acute Plan to address problem: Management as per primary care. (7) Depression Current Visit: Yes Status: Acute Plan to address problem: Depression, Anxiety and Anger. Recommend to consult psychiatry.
[2019-03-15] MEDS ORDERED: DESYREL PO SCH (22:00)
[2019-03-15] MEDS: SINGULAIR PO SCH (22:22)
[2019-03-15] MEDS: RisperDAL PO SCH (22:22)
[2019-03-15] MEDS: LANTUS SUB-Q SCH (22:45)
[2019-03-16] MEDS: DUONEB *Not for PRN Use IH SCH ×4 (02:02→21:36)
[2019-03-16] MEDS: SOLU-Medrol IV SCH ×3 (06:39→21:54)
[2019-03-16 07:27] LABS: Basophils % (Auto) 0.2 % (0.0-1.8); Hematocrit 37.8 % (35.5-45.6); Hemoglobin 12.4 gm/dl (11.8-15.2); Lymphocytes # (Auto) 0.8 K/mm3 (1.2-5.4); Lymphocytes % (Auto) 12.1 % (13.4-35.0); Mean Corpuscular HGB Conc 33 % (32-34); Mean Corpuscular Volume 89 fl (84-94); Monocytes # (Auto) 0.3 K/mm3 (0.0-0.8); Monocytes % (Auto) 4.7 % (0.0-7.3); Platelet Count 278 K/mm3 (140-440); Red Blood Count 4.27 M/mm3 (3.65-5.03); Red Cell Distribution Width 17.8 % (13.2-15.2)
[2019-03-16 07:47] LABS: BUN/Creatinine Ratio 19; Blood Urea Nitrogen 19 mg/dL (9-20); Calcium 8.3 mg/dL (8.4-10.2); Hemolysis Index 0
--- NOTE | 2019-03-16 07:49 | XRay Report ---
ROUTINE CHEST, TWO VIEWS: HISTORY: Possible COPD, acute bronchitis. Compared to 03/14/19. Mild cardiomegaly and pulmonary venous congestion appear stable. Small left pleural effusion has increased slightly. Trace right pleural effusion has decreased slightly. The lungs are grossly clear. Mild segmental atelectasis or scarring in the lingula is noted. The bony structures are intact. IMPRESSION: Mild CHF. No significant COPD findings.
[2019-03-16] MEDS: HumaLOG SUB-Q SCH ×4 (08:50→21:57)
[2019-03-16] MEDS: ROCEPHIN/NS 2 GM/100 ML 2 GM/100 ML BAG IV SCH (09:24)
[2019-03-16] MEDS: BABY ASPIRIN PO SCH (09:26)
[2019-03-16] MEDS: COLACE PO SCH ×2 (09:26→21:54)
[2019-03-16] MEDS: LASIX IV SCH ×2 (09:26→19:13)
[2019-03-16] MEDS: ZITHROMAX 500 MG in NACL 0.9% 250ML 250 ML IV SCH (09:26)
[2019-03-16] MEDS: ZESTRIL PO SCH (09:26)
[2019-03-16] MEDS: LOVENOX SUB-Q SCH ×2 (09:26→21:54)
[2019-03-16] MEDS: K-DUR PO SCH (09:27)
[2019-03-16] MEDS: SODIUM CHLORIDE FLUSH SYRINGE 10 ML IV SCH ×2 (09:27→21:55)
[2019-03-16] MEDS: HABITROL TD SCH (09:27)
--- NOTE | 2019-03-16 11:41 | Consultation ---
History of Present Illness Consult date: 03/16/19 Consult reason: congestive heart failure History of present illness: Patient is a 64 year old male that has a history of nonischemic cardiomyopathy by cardiac cath in 2014 that reports no significant coronary artery disease but a mildly decreased left ventricular ejection fraction of 40%. He presented 03/14 with shortness of breath, orthopnea, admitted with CHF exacerbation. Patient reports he drinks 2-3 liters of soda daily. An echocardiogram this admission revealed severe 4 chamber dilated cardiomyopathy with a severely decreased ejection fraction 10-15%. There is an incidental finding of apical LV thrombus thus this cardiac consultation. Past History Past Medical History: diabetes, heart failure, hypertension, other (Prostate cancer, depression, anxiety.) Past Surgical History: No surgical history Social history: lives with family, smoking Medications and Allergies Allergies Allergy/AdvReac Type Severity Reaction Status Date / Time No Known Allergies Allergy Verified 03/14/19 11:30 Home Medications Medication Instructions Recorded Confirmed Last Taken Type Aspirin [Aspirin BABY CHEW TAB] 1 tab PO DAILY 08/22/14 03/14/19 03/13/19 History Citalopram [celeXA] 40 tab PO DAILY 08/22/14 03/14/19 03/13/19 History Insulin Aspart [NovoLOG Flexpen] 20 - 24 units SC TID 08/22/14 03/14/19 03/13/19 History Insulin Lispro [Humalog Kwikpen] 40 units SC QHS 08/22/14 03/14/19 03/13/19 History Lisinopril 10 mg PO DAILY 08/22/14 03/14/19 03/13/19 History [place] Carbonate 600 mg PO BID 08/22/14 03/14/19 03/13/19 History Metoprolol [Lopressor TAB] 50 tab PO DAILY 08/22/14 03/14/19 03/13/19 History risperiDONE [Risperidone] 2 mg PO DAILY 08/22/14 03/14/19 03/13/19 History Mirtazapine [Remeron] 15 mg PO QHS 09/05/15 03/14/19 03/13/19 History Oxybutynin [Ditropan] 5 mg PO BID 09/05/15 03/14/19 03/13/19 History Ranitidine HCl [Zantac 150 MG TAB] 150 mg PO BID 1003/14/19 03/13/19 History Rosuvastatin (Nf) [Crestor] 20 mg PO QHS 09/05/15 03/14/19 03/13/19 History Tamsulosin [Flomax] 0.4 mg PO BID 09/05/15 03/14/19 03/13/19 History metFORMIN [Glucophage] 500 mg PO BID 09/05/15 03/14/19 03/13/19 History Cyclobenzaprine [Flexeril] 10 mg PO TID PRN #12 tablet 08/04/18 03/14/19 03/13/19 Rx Zolpidem Tartrate [Ambien] 5 mg PO QHS PRN #3 tablet 02/17/19 03/14/19 03/13/19 Rx NovoLIN 70/30 35 units SQ DAILY 03/14/19 03/14/19 03/13/19 History Active Meds: Active Medications Acetaminophen (Tylenol) 650 mg PO Q4H PRN PRN Reason: Pain MILD(1-3)/Fever >100.5/RAMOS Albuterol (Proventil) 2.5 mg IH Q4HRT PRN PRN Reason: Shortness Of Breath Last Admin: 03/15/19 12:16 Dose: 2.5 mg Documented by: Albuterol/Ipratropium (Duoneb *Not For Prn Use*) 1 ampul IH Q6HRT [facility] Last Admin: 03/16/19 08:14 Dose: 1 ampul Documented by: Alprazolam (Xanax) 0.5 mg PO Q8HR PRN PRN Reason: Anxiety Last Admin: 03/15/19 13:41 Dose: 0.5 mg Documented by: Aspirin (Baby Aspirin) 81 mg PO DAILY [facility] Last Admin: 03/16/19 09:26 Dose: 81 mg Documented by: Dextrose (D50w (25gm) Syringe) 50 ml IV PRN PRN PRN Reason: Hypoglycemia Docusate Sodium (Colace) 100 mg PO BID [facility] Last Admin: 03/16/19 09:26 Dose: 100 mg Documented by: Enoxaparin Sodium (Lovenox) 80 mg SUB-Q Q12HR [facility] Last Admin: 03/16/19 09:26 Dose: 80 mg Documented by: Furosemide (Lasix) 40 mg IV QDAY [facility] Last Admin: 03/16/19 09:26 Dose: 40 mg Documented by: Azithromycin 500 mg/ Sodium (Chloride) 250 mls @ 250 mls/hr IV Q24HR [facility]; Protocol Last Admin: 03/16/19 09:26 Dose: 250 mls/hr Documented by: Ceftriaxone Sodium (Rocephin/Ns 2 Gm/100 Ml) 2 gm in 100 mls @ 200 mls/hr IV Q24HR [facility]; Protocol Last Admin: 03/16/19 09:24 Dose: 200 mls/hr Documented by: Insulin Glargine (Lantus) 10 units SUB-Q QHS [facility] Last Admin: 03/15/19 22:45 Dose: 10 units Documented by: Insulin Human Lispro (Humalog) 0 unit SUB-Q [facility]; Protocol Last Admin: 03/16/19 08:50 Dose: 3 unit Documented by: Lisinopril (Zestril) 10 mg PO DAILY [facility] Last Admin: 03/16/19 09:26 Dose: 10 mg Documented by: Methylprednisolone Sodium Succinate (Solu-Medrol) 40 mg IV Q8HR [facility] Last Admin: 03/16/19 06:39 Dose: 40 mg Documented by: Montelukast Sodium (Singulair) 10 mg PO QHS [facility] Last Admin: 03/15/19 22:22 Dose: 10 mg Documented by: Morphine Sulfate (Morphine) 2 mg IV Q4H PRN PRN Reason: Pain, Moderate (4-6) Naloxone HCl (Narcan 0.4 Mg/1 Ml) 0.1 mg IV Q2MIN PRN PRN Reason: Res Rate </= 8 or 02 SAT < 92% Nicotine (Habitrol) 14 mg TD QDAY [facility] Last Admin: 03/16/19 09:27 Dose: 14 mg Documented by: Ondansetron HCl (Zofran) 4 mg IV Q8H PRN PRN Reason: Nausea And Vomiting Potassium Chloride (K-Dur) 10 meq PO QDAY [facility] Last Admin: 03/16/19 09:27 Dose: 10 meq Documented by: Risperidone (Risperdal) 1 mg PO [facility] Last Admin: 03/15/19 22:22 Dose: 1 mg Documented by: Sodium Chloride (Sodium Chloride Flush Syringe 10 Ml) 10 ml IV BID [facility] Last Admin: 03/16/19 09:27 Dose: 10 ml Documented by: Sodium Chloride (Sodium Chloride Flush Syringe 10 Ml) 10 ml IV PRN PRN PRN Reason: LINE FLUSH Zolpidem Tartrate (Ambien) 5 mg PO QHS PRN PRN Reason: Insomnia Last Admin: 03/14/19 23:30 Dose: 5 mg Documented by: Physical Examination Vital Signs Temp Pulse Resp BP Pulse Ox 97.5 F L 106 H 20 154/98 99 03/14/19 12:10 03/14/19 12:10 03/14/19 12:10 03/14/19 12:10 03/14/19 12:10 General appearance: no acute distress HEENT: Positive: PERRL Neck: Positive: trachea midline Cardiac: Positive: Reg Rate and Rhythm Lungs: Positive: Decreased Breath Sounds Neuro: Positive: Grossly Intact Results 03/16/19 06:58 03/16/19 06:58 CBC 03/16/19 Range/Units 06:58 WBC 6.4 (4.5-11.0) K/mm3 RBC 4.27 (3.65-5.03) M/mm3 Hgb 12.4 (11.8-15.2) gm/dl Hct 37.8 (35.5-45.6) % Plt Count 278 (140-440) K/mm3 Lymph # 0.8 L (1.2-5.4) K/mm3 Rich # 0.3 (0.0-0.8) K/mm3 Eos # 0.0 (0.0-0.4) K/mm3 Baso # 0.0 (0.0-0.1) K/mm3 Comprehensive Metabolic Panel 03/16/19 Range/Units 06:58 Sodium 139 (137-145) mmol/L Potassium 4.7 (3.6-5.0) mmol/L Chloride 108.3 H (98-107) mmol/L Carbon Dioxide 21 L (22-30) mmol/L BUN 19 (9-20) mg/dL Creatinine 1.0 (0.8-1.5) mg/dL Glucose 272 H (75-100) mg/dL Calcium 8.3 L (8.4-10.2) mg/dL Assessment and Plan Acute CHF exacerbation Nonischemic cardiomyopathy Hypertension Diabetes Apical LV thrombus
--- NOTE | 2019-03-16 12:30 | Progress Note ---
Assessment and Plan Assessment and plan: Acute combined systolic and diastolic heart failure. Echocardiogram reveals severe 4 chamber dilated cardiomyopathy. EF is 10-15%. Mild concentric left ventricular hypertrophy observed. Continue IV Lasix daily and lisinopril. Chest x-ray revealed bilateral pleural effusions. Cardiology following. The patient will be transferred to telemetry and started on milrinone drip. Nonischemic Dilated cardiomyopathy. As above. Apical LV thrombus. Echo revealed Apical LV thrombus present measuring 2.2 cm in largest diameter. Continue Lovenox 80 twice a day and start Coumadin. Cardiology consultation pending. Mild to moderate pulmonary hypertension. Right ventricular systolic pressure is 38 mmHg Acute COPD exacerbation. Continue COPD pathway, bronchodilators/nebulizers and IV steroids Bilateral community-acquired pneumonia. Chest x-ray reveals right middle lobe opacity with air bronchograms and a left perihilar opacity. Start IV antibiotics Acute hypoxemic respiratory failure. Etiology secondary to pulmonary hypertension, COPD exacerbation and heart failure. Continue O2. Diabetes mellitus type 2. Continue Accu-Cheks, Lantus and sliding scale insulin. Hypertension. Continue antihypertensive medications. Depression. Continue home meds: Remeron, Risperidone, and lithium Consult to psych pending Insomnia. Continue Ambien. Tobacco abuse. Patient with a [id number] history. Continue nicotine patch. Patient will be counseled on smoking cessation. History Interval history: Patient still complains of shortness of breath. Patient with conversational dyspnea. Patient denies chest pain. Hospitalist Physical - Constitutional Vitals: Temp Pulse Resp BP Pulse Ox 97.6 F 107 H 20 89/59 92 03/16/19 11:27 03/16/19 11:27 03/16/19 11:27 03/16/19 11:27 03/16/19 11:27 General appearance: Present: no acute distress - EENT Eyes: Present: PERRL, EOM intact ENT: hearing intact, clear oral mucosa, dentition normal - Neck Neck: Present: supple, normal ROM - Respiratory Respiratory effort: normal Respiratory: bilateral: diminished, rales - Cardiovascular Rhythm: regular Heart Sounds: Present: S1 & S2. Absent: gallop, rub - Extremities Extremities: no ischemia, No edema, Full ROM - Abdominal General gastrointestinal: soft, non-tender, non-distended, normal bowel sounds - Integumentary Integumentary: Present: clear, warm, dry - Neurologic Neurologic: CNII-XII intact, moves all extremities Results - Labs CBC & Chem 7: 03/16/19 06:58 03/16/19 06:58 Labs: Laboratory Last Values WBC 6.4 K/mm3 (4.5-11.0) 03/16/19 06:58 RBC 4.27 M/mm3 (3.65-5.03) 03/16/19 06:58 Hgb 12.4 gm/dl (11.8-15.2) 03/16/19 06:58 Hct 37.8 % (35.5-45.6) 03/16/19 06:58 MCV 89 fl (84-94) 03/16/19 06:58 MCH 29 pg (28-32) 03/16/19 06:58 MCHC 33 % (32-34) 03/16/19 06:58 RDW 17.8 % (13.2-15.2) H 03/16/19 06:58 Plt Count 278 K/mm3 (140-440) 03/16/19 06:58 Lymph % (Auto) 12.1 % (13.4-35.0) L 03/16/19 06:58 [place] % (Auto) 4.7 % (0.0-7.3) 03/16/19 06:58 Eos % (Auto) 0.0 % (0.0-4.3) 03/16/19 06:58 Baso % (Auto) 0.2 % (0.0-1.8) 03/16/19 06:58 Lymph # 0.8 K/mm3 (1.2-5.4) L 03/16/19 06:58 [place] # 0.3 K/mm3 (0.0-0.8) 03/16/19 06:58 Eos # 0.0 K/mm3 (0.0-0.4) 03/16/19 06:58 Baso # 0.0 K/mm3 (0.0-0.1) 03/16/19 06:58 Seg Neutrophils % 83.0 % (40.0-70.0) H 03/16/19 06:58 Seg Neutrophils # 5.3 K/mm3 (1.8-7.7) 03/16/19 06:58 POC ABG pH 7.354 (7.35-7.45) 03/16/19 08:36 POC ABG pCO2 33.3 (35-45) L 03/16/19 08:36 POC ABG pO2 79 (80-105) L 03/16/19 08:36 POC ABG HCO3 18.6 (22-26 mml/L) 03/16/19 08:36 POC ABG Total CO2 20 (23-27mmol/L) 03/16/19 08:36 POC ABG O2 Sat 95 03/16/19 08:36 POC ABG Base Excess -7 ((-2) - (+3)mmol/L) 03/16/19 08:36 Sodium 139 mmol/L (137-145) 03/16/19 06:58 Potassium 4.7 mmol/L (3.6-5.0) 03/16/19 06:58 Chloride 108.3 mmol/L (98-107) H 03/16/19 06:58 Carbon Dioxide 21 mmol/L (22-30) L 03/16/19 06:58 Anion Gap 14 mmol/L 03/16/19 06:58 BUN 19 mg/dL (9-20) 03/16/19 06:58 Creatinine 1.0 mg/dL (0.8-1.5) 03/16/19 06:58 Estimated GFR > 60 ml/min 03/16/19 06:58 BUN/Creatinine Ratio 19 % 03/16/19 06:58 Glucose 272 mg/dL (75-100) H 03/16/19 06:58 POC Glucose 354 (70-105) H 03/16/19 11:12 Hemoglobin A1c 8.1 % (4-6) H 03/14/19 16:48 Calcium 8.3 mg/dL (8.4-10.2) L 03/16/19 06:58 Magnesium 1.90 mg/dL (1.7-2.3) 03/14/19 12:23 NT-Pro-B Natriuret Pep 1893 pg/mL (0-900) H 03/14/19 12:23 Triglycerides 87 mg/dL (2-149) 03/14/19 12:23 Cholesterol 166 mg/dL (50-199) 03/14/19 12:23 LDL Cholesterol Direct 116 mg/dL (50-130) 04/15/19 12:23 HDL Cholesterol 51 mg/dL (40-59) 03/14/19 12:23 Cholesterol/HDL Ratio 3.25 % 03/14/19 12:23 TSH 1.380 mlU/mL (0.270-4.200) 03/14/19 12:23 [place] 0.3 mmol/L (0.0-1.2) 03/14/19 15:09 Active Medications - Current Medications Current Medications: Generic Name Dose Route Start Last Admin Trade Name Freq PRN Reason Stop Dose Admin Acetaminophen 650 mg 03/14/19 15:43 Tylenol PO Q4H PRN Pain MILD(1-3)/Fever >100.5/RAMOS Albuterol 2.5 mg 03/14/19 21:23 03/15/19 12:16 Proventil IH 2.5 mg Q4HRT PRN Administration Shortness Of Breath Albuterol/Ipratropium 1 ampul 03/15/19 14:00 03/16/19 08:14 Duoneb *Not For Prn Use* IH 1 ampul Q6HRT [facility] Administration Alprazolam 0.5 mg 03/14/19 16:19 03/15/19 13:41 Xanax PO 0.5 mg Q8HR PRN Administration Anxiety Aspirin 81 mg 03/15/19 10:00 03/16/19 09:26 Baby Aspirin PO 81 mg DAILY [facility] Administration Carvedilol 3.125 mg 03/16/19 22:00 Coreg PO BID [facility] Dextrose 50 ml 03/14/19 15:43 D50w (25gm) Syringe IV PRN PRN Hypoglycemia Docusate Sodium 100 mg 03/14/19 22:00 03/16/19 09:26 Colace PO 100 mg BID [facility] Administration Enoxaparin Sodium 80 mg 03/14/19 22:00 03/16/19 09:26 Lovenox SUB-Q 80 mg Q12HR [facility] Administration Furosemide 40 mg 03/16/19 18:00 Lasix IV 0600,1800 [facility] Azithromycin 500 mg/ Sodium 250 mls @ 250 mls/hr 03/15/19 14:00 03/16/19 09:26 Chloride IV 250 mls/hr Q24HR [facility] Administration Protocol Ceftriaxone Sodium 2 gm in 100 mls @ 200 mls/hr 03/15/19 14:00 04/17/19 09:24 Rocephin/Ns 2 Gm/100 Ml IV 200 mls/hr Q24HR [facility] Administration Protocol Milrinone Lactate/Dextrose 20 mg in 100 mls @ 6.09 mls/hr 03/16/19 13:00 Milrinone-D5w 20 Mg/100 Ml IV TITR [facility] Protocol 0.25 MCG/KG/MIN Insulin Glargine 10 units 03/14/19 22:00 03/15/19 22:45 Lantus SUB-Q 10 units QHS [facility] Administration Insulin Human Lispro 0 unit 03/14/19 16:30 03/16/19 08:50 Humalog SUB-Q 3 unit ACHS [facility] Administration Protocol Lisinopril 10 mg 03/15/19 10:00 03/16/19 09:26 Zestril PO 10 mg DAILY [facility] Administration Methylprednisolone Sodium Succinate 40 mg 03/15/19 14:00 03/16/19 06:39 Solu-Medrol IV 40 mg Q8HR [facility] Administration Montelukast Sodium 10 mg 03/15/19 22:00 03/15/19 22:22 Singulair PO 10 mg QHS [facility] Administration Morphine Sulfate 2 mg 03/14/19 15:43 Morphine IV Q4H PRN Pain, Moderate (4-6) Naloxone HCl 0.1 mg 03/14/19 15:43 Narcan 0.4 Mg/1 Ml IV Q2MIN PRN Res Rate </= 8 or 02 SAT < 92% Nicotine 14 mg 03/15/19 15:00 03/16/19 09:27 Habitrol TD 14 mg QDAY [facility] Administration Ondansetron HCl 4 mg 03/14/19 15:43 Zofran IV Q8H PRN Nausea And Vomiting Potassium Chloride 10 meq 03/15/19 13:00 03/16/19 09:27 K-Dur PO 10 meq QDAY [facility] Administration Risperidone 1 mg 03/15/19 22:00 03/15/19 22:22 Risperdal PO 1 mg HS [facility] Administration Sodium Chloride 10 ml 03/14/19 22:00 03/16/19 09:27 Sodium Chloride Flush Syringe 10 Ml IV 10 ml BID [facility] Administration Sodium Chloride 10 ml 03/14/19 15:43 Sodium Chloride Flush Syringe 10 Ml IV PRN PRN LINE FLUSH Zolpidem Tartrate 5 mg 03/14/19 15:43 03/14/19 23:30 Ambien PO 5 mg QHS PRN Administration Insomnia Nutrition/Malnutrition Assess - Dietary Evaluation Nutrition/Malnutrition Findings: Nutrition Notes Start: 03/15/19 09:53 Freq: Status: Active Protocol: Document 03/16/19 09:29 CP (Rec: 03/16/19 09:49 CP [id number]) Co-Sign 03/16/19 09:29 LP Nutrition Notes Need for Assessment generated from: MD Order,Education Initial or Follow up Assessment Current Diagnosis Diabetes,Hypertension,Heart Failure Other Pertinent Diagnosis Insomnia, depression, anxiety, nicotine dependence Current Diet Cardiac/Consistent Carbohydrate Labs/Tests POC Glu: 224 Pertinent Medications Lasix Insulin Solu-medral Height 6 ft 1 in Weight 81.2 kg [place] Body Weight (kg) 83.63 BMI 23.6 Subjective/Other Information MD consult for diet education. Provided diabetes education and gave carbohydrate handout. Pt states he has been diagnosed since 1999 and hasn' t received diet education since. Pt also reports drinking 2 L of soda/day when going over his typical intake prior to admissoin. He made a goal to reduce his intake to 1 L /day at the end of the discussion. Pt finished 100% of his tray during visit. Percent of energy/protein needs met: 100%/100% Burn Absent Trauma Absent #1 Nutrition Diagnosis Limited adherence to nutrition -related recommendations Etiology Lack of diet education on consistent carbohydrates As Evidenced by Signs and Symptoms POC Glu of 224 and pt stating he did not know what foods contained carbohydrates Is patient on ventilator? No Is Patient Ambulatory and/or Out of Bed Yes REE-([facility]-ambulatory/OOB) [ 2165.644 [id number]] Additional Notes Pro: (0.8-1g/kg) 65-81g/day Fluid: 1 mL/kcal or per MD request Nutrition Intervention Change Diet Order: Continue current or per MD request Teaching Recipient Patient Learning Readiness Good Teaching Methods Discussion,Handout Response to Teaching Verbalize understanding Education Handouts Provided Consistent carbohydrate handout Barriers to Learning No Barriers RD phone number provided Yes Patient aware of follow up options Yes Goal #1 Pt to continue to meet at least 75% of energy and protein needs from PO intake Goal #2 Adherence to diet education on consistent carbohydrates Anticipated Discharge Needs: Cardiac/Consistent carbohydrate Revisit per MD consult or patient Sign Off request:
--- NOTE | 2019-03-16 13:21 | Progress Note ---
Subjective - Reason for Consult Consult date: 03/16/19 Reason for consult: Psychiatric Follow-up Evaluation - Chief Complaint Chief complaint: Patient is in procedure/ECHO Patient is a 64 y.o. AA male who presented to the ER for SOB. Psychiatry was consulted to see the patient for medication mgmt. Unable to assess. Patient is not in room. She was transferred/transported to have ECHO. Mental Status Exam - Vital signs Last Vital Signs Temp 97.6 F 03/16/19 11:27 Pulse 107 H 03/16/19 11:27 Resp 20 03/16/19 11:27 BP 89/59 03/16/19 11:27 Pulse Ox 92 03/16/19 11:27 - Exam Narrative exam: Unable to Assess. Assessment and Plan Impression: Hx of Bipolar DO. Insomnia. Today the patient is not in room. Will reassess in 24 hours. Recommendation/Plan: 1. Will reassess in 24 hours. 2. Continue Risperdal 1 mg Po HS for mood and Ambien 5 mg PO HS PRN for sleep. Discussed possible metabolic side effects of Risperdal with patient. Will staff with Dr Silvia Turner.
--- NOTE | 2019-03-16 13:52 | Progress Note ---
Assessment and Plan Patient alert and awake, resting on room air. No acute respiratory distress. O2 saturation 97%. Patient is afebrile. Patient is very cooperative this morning. Patient still smoking. counselled to stop smoking. - Patient Problems (1) CHF (congestive heart failure) Current Visit: Yes Status: Acute Plan to address problem: Patient is on I/V Lasix and lisonipril. (2) COPD (chronic obstructive pulmonary disease) Current Visit: Yes Status: Acute Plan to address problem: Possible with history of heavy smoking. Apbuterol/atrovent aerosol treatments q 6 hours. Continue I/V solumedrol. Patient is on S/C Lovenox. Patient is on Zithromax and ceftrioxone. Recommend GI Prophylaxis. PFTs as out patient. (3) Tobacco use disorder Current Visit: Yes Status: Acute Plan to address problem: Ptient is on Nicotine patch. Will admissions counselor him to stop smoking. (4) Prostate cancer Current Visit: Yes Status: Acute Plan to address problem: recommended to consult urology (5) Diabetes Current Visit: Yes Status: Acute Plan to address problem: as per primary care (6) Hypertension Current Visit: Yes Status: Acute Plan to address problem: Management as per primary care. (7) Depression Current Visit: Yes Status: Acute Plan to address problem: Depression, Anxiety and Anger. Recommend to consult psychiatry. Subjective Date of service: 03/16/19 Interval history: Patient alert and awake, resting on room air. No acute respiratory distress. O2 saturation 97%. Patient is afebrile. Patient is very cooperative this morning. Patient still smoking. counselled to stop smoking. Objective Vital Signs - 12hr 03/16/19 03/16/19 03/16/19 05:23 08:14 08:24 Temperature 98.4 F Pulse Rate 76 Pulse Rate [ 88 90 Anterior Bilateral Throughout] Respiratory 22 Rate Respiratory 18 18 Rate [Anterior Bilateral Throughout] Blood Pressure 95/57 O2 Sat by Pulse 93 Oximetry 03/16/19 03/16/19 09:26 11:27 Temperature 97.6 F Pulse Rate 107 H Pulse Rate [ Anterior Bilateral Throughout] Respiratory 20 Rate Respiratory Rate [Anterior Bilateral Throughout] Blood Pressure 110/69 89/59 O2 Sat by Pulse 92 Oximetry Constitutional: no acute distress, alert Eyes: non-icteric ENT: oropharynx moist Neck: supple, no JVD Ascultation: Bilateral: rales Cardiovascular: regular rate and rhythm Gastrointestinal: normoactive bowel sounds, soft, non-tender Integumentary: normal Extremities: no cyanosis, no edema Neurologic: non-focal exam, pupils equal and round, CN II-XII normal Psychiatric: mood appropriate CBC and BMP: 03/16/19 06:58 03/16/19 06:58 ABG, PT/INR, D-dimer: ABG POC ABG pH 7.354 (7.35-7.45) 03/16/19 08:36 POC ABG pCO2 33.3 (35-45) L 03/16/19 08:36 POC ABG pO2 79 (80-105) L 03/16/19 08:36 POC ABG HCO3 18.6 (22-26 mml/L) 03/16/19 08:36 POC ABG Total CO2 20 (23-27mmol/L) 03/16/19 08:36 POC ABG O2 Sat 95 03/16/19 08:36 Abnormal lab findings: Abnormal Labs 03/14/19 03/14/19 03/14/19 12:23 12:23 16:36 RDW Lymph % (Auto) Lymph # Seg Neutrophils % POC ABG pCO2 POC ABG pO2 Sodium 136 L Chloride Carbon Dioxide 18 L Glucose 306 H POC Glucose 289 H Hemoglobin A1c Calcium NT-Pro-B Natriuret Pep 1941 H 1893 H 03/14/19 03/14/19 03/15/19 16:48 21:27 08:09 RDW Lymph % (Auto) Lymph # Seg Neutrophils % POC ABG pCO2 POC ABG pO2 Sodium Chloride Carbon Dioxide Glucose POC Glucose 134 H 162 H Hemoglobin A1c 8.1 H Calcium NT-Pro-B Natriuret Pep 03/15/19 03/15/19 03/15/19 11:36 16:50 21:25 RDW Lymph % (Auto) Lymph # Seg Neutrophils % POC ABG pCO2 POC ABG pO2 Sodium Chloride Carbon Dioxide Glucose POC Glucose 174 H 111 H 170 H Hemoglobin A1c Calcium NT-Pro-B Natriuret Pep 03/16/19 03/16/19 03/16/19 06:58 06:58 07:39 RDW 17.8 H Lymph % (Auto) 12.1 L Lymph # 0.8 L Seg Neutrophils % 83.0 H POC ABG pCO2 POC ABG pO2 Sodium Chloride 108.3 H Carbon Dioxide 21 L Glucose 272 H POC Glucose 224 H Hemoglobin A1c Calcium 8.3 L NT-Pro-B Natriuret Pep 03/16/19 03/16/19 08:36 11:12 RDW Lymph % (Auto) Lymph # Seg Neutrophils % POC ABG pCO2 33.3 L POC ABG pO2 79 L Sodium Chloride Carbon Dioxide Glucose POC Glucose 354 H Hemoglobin A1c Calcium NT-Pro-B Natriuret Pep Chest x-ray: report reviewed (mILD chf), image reviewed
[2019-03-16] MEDS: MILRINONE-D5W 20 MG/100 ML 20 MG/100 ML BAG IV SCH (14:03)
[2019-03-16 14:04] LABS: INR 1.13 (0.87-1.13)
[2019-03-16] MEDS ORDERED: COUMADIN PO SCH ×2 (17:00)
[2019-03-16] MEDS ORDERED: LASIX PO SCH (18:00)
[2019-03-16] MEDS: LANTUS SUB-Q SCH (21:53)
[2019-03-16] MEDS: RisperDAL PO SCH (21:54)
[2019-03-16] MEDS: COREG PO SCH (21:54)
[2019-03-16] MEDS: SINGULAIR PO SCH (21:54)
[2019-03-17] MEDS: DUONEB *Not for PRN Use IH SCH ×4 (04:00→21:05)
[2019-03-17] MEDS: MILRINONE-D5W 20 MG/100 ML 20 MG/100 ML BAG IV SCH ×2 (05:26→20:47)
[2019-03-17] MEDS: SOLU-Medrol IV SCH ×3 (05:27→21:20)
[2019-03-17] MEDS: LASIX IV SCH ×2 (05:27→17:33)
[2019-03-17 06:04] LABS: INR 1.15 (0.87-1.13)
--- NOTE | 2019-03-17 09:02 | Progress Note ---
Assessment and Plan Acute CHF exacerbation Nonischemic cardiomyopathy cardiac cath 2015 showing non-obstructive CAD Hypertension Diabetes Apical LV thrombus Fluid/sodium restriction. Aggressive medical therapy for systolic heart failure to include a trial of IV milrinone. Continue warfarin therapy with lovenox bridge for apical LV thrombus. Target INR 2-3 Subjective Date of service: 03/17/19 Interval history: Patient transferred to telemetry and initiated on IV milrinone. Patient admits he is diuresing well. Objective Vital Signs Temp Pulse Pulse Resp Resp BP Pulse Ox 03/17/19 04:22 98.2 F 94 H 12 104/70 97 03/16/19 22:44 98.3 F 98 H 12 100/50 92 03/16/19 21:39 88 14 03/16/19 21:29 90 16 03/16/19 19:14 98.2 F 102 H 14 125/82 99 03/16/19 15:17 82 18 03/16/19 15:07 78 18 03/16/19 14:13 98.6 F 100 H 16 114/79 97 03/16/19 11:27 97.6 F 107 H 20 89/59 92 03/16/19 09:26 110/69 - Physical Examination General: No Apparent Distress HEENT: Positive: PERRL Neck: Positive: trachea midline Cardiac: Positive: Reg Rate and Rhythm Lungs: Positive: Decreased Breath Sounds Neuro: Positive: Grossly Intact Extremities: Absent: edema - Labs and Meds Coagulation 03/16/19 03/17/19 Range/Units 13:41 05:08 PT 15.2 H 15.4 H (12.2-14.9) Sec. INR 1.13 1.15 H (0.87-1.13)
[2019-03-17] MEDS: HumaLOG SUB-Q SCH ×4 (09:05→21:21)
[2019-03-17] MEDS: COREG PO SCH ×2 (10:19→21:19)
[2019-03-17] MEDS: BABY ASPIRIN PO SCH (10:19)
[2019-03-17] MEDS: COLACE PO SCH ×2 (10:19→21:22)
[2019-03-17] MEDS: K-DUR PO SCH (10:19)
[2019-03-17] MEDS: ZESTRIL PO SCH (10:19)
[2019-03-17] MEDS: HABITROL TD SCH (10:19)
[2019-03-17] MEDS: LOVENOX SUB-Q SCH ×2 (10:20→21:20)
[2019-03-17] MEDS: SODIUM CHLORIDE FLUSH SYRINGE 10 ML IV SCH ×2 (10:21→21:22)
[2019-03-17] MEDS: ROCEPHIN/NS 2 GM/100 ML 2 GM/100 ML BAG IV SCH (11:05)
[2019-03-17] MEDS: ZITHROMAX 500 MG in NACL 0.9% 250ML 250 ML IV SCH (11:06)
--- NOTE | 2019-03-17 11:06 | Progress Note ---
Subjective - Reason for Consult Consult date: 03/17/19 Reason for consult: Psychiatry Follow-up - Chief Complaint Chief complaint: "I am okay" 64 y.o. AA male who presented to the ER for SOB. Psychiatry was consulted to see the patient for medication mgmt. Today the patient is calm and cooperative during the assessment. He stated that he is breathing much better today. He stated that he plan to continue to see Dr Orourke for outpatient psy services o nce discharged. He denies SI/HI's and AVH's. He denies any side effects of his medications. Mental Status Exam - Vital signs Last Vital Signs Temp 98.2 F 03/17/19 04:22 Pulse 94 H 03/17/19 04:22 Resp 12 03/17/19 04:22 BP 104/70 03/17/19 04:22 Pulse Ox 97 03/17/19 04:22 - Exam Narrative exam: MSE: Appearance: calm, cooperative Behavior: regular eye contact Speech: regular rate and tone Mood: "better" Affect: congruent to mood Thought Process: linear Thought Content: denies SI/HI's and AVH's Motor Activity: ambulatory Cognition: A/O x 3 Insight: appropriate Judgment: appropriate Assessment and Plan Impression: Hx of Bipolar DO. Insomnia. Today the patient is calm and cooperative during the assessment. . Recommendation/Plan: Continue Risperdal 1 mg Po HS for mood and Ambien 5 mg PO HS PRN for sleep. Discussed possible metabolic side effects of Risperdal with patient. Psy sign off. Dispo: The patient can follow up with Dr Orourke for outpatient psy services. Will staff with Dr Silvia Turner.
--- NOTE | 2019-03-17 13:21 | Progress Note ---
Assessment and Plan Assessment and plan: Acute combined systolic and diastolic heart failure. Echocardiogram reveals severe 4 chamber dilated cardiomyopathy. EF is 10-15%. Mild concentric left ventricular hypertrophy observed. Continue IV Lasix daily and lisinopril. Chest x-ray revealed bilateral pleural effusions. Cardiology following. The patient is currently on milrinone drip Nonischemic Dilated cardiomyopathy. As above. Apical LV thrombus. Echo revealed Apical LV thrombus present measuring 2.2 cm in largest diameter. Continue Lovenox 80 twice a day and Coumadin. Cardiology consultation pending. Mild to moderate pulmonary hypertension. Right ventricular systolic pressure is 38 mmHg Acute COPD exacerbation. Continue COPD pathway, bronchodilators/nebulizers and IV steroids Bilateral community-acquired pneumonia. Chest x-ray reveals right middle lobe opacity with air bronchograms and a left perihilar opacity. Start IV antibiotics Acute hypoxemic respiratory failure. Etiology secondary to pulmonary hyperten joyce, COPD exacerbation and heart failure. Continue O2. Diabetes mellitus type 2. Continue Accu-Cheks, Lantus and sliding scale insulin. Hypertension. Continue antihypertensive medications. Depression. Continue home meds: Remeron, Risperidone, and lithium Consult to psych pending Insomnia. Continue Ambien. Tobacco abuse. Patient with a [id number] history. Continue nicotine patch. Patient will be counseled on smoking cessation. History Interval history: Patient still complains of shortness of breath. Patient denies chest pain. Hospitalist Physical - Constitutional Vitals: Temp Pulse Resp BP Pulse Ox 98.2 F 94 H 12 104/70 97 03/17/19 04:22 03/17/19 04:22 03/17/19 04:22 03/17/19 04:22 03/17/19 04:22 General appearance: Present: no acute distress - EENT Eyes: Present: PERRL, EOM intact ENT: hearing intact, clear oral mucosa, dentition normal - Neck Neck: Present: supple, normal ROM - Respiratory Respiratory effort: normal Respiratory: bilateral: CTA - Cardiovascular Rhythm: regular Heart Sounds: Present: S1 & S2. Absent: gallop, rub - Extremities Extremities: no ischemia, No edema, Full ROM - Abdominal General gastrointestinal: soft, non-tender, non-distended, normal bowel sounds - Integumentary Integumentary: Present: clear, warm, dry - Neurologic Neurologic: CNII-XII intact, moves all extremities Results - Labs CBC & Chem 7: 03/16/19 06:58 03/16/19 06:58 Labs: Laboratory Last Values WBC 6.4 K/mm3 (4.5-11.0) 03/16/19 06:58 RBC 4.27 M/mm3 (3.65-5.03) 03/16/19 06:58 Hgb 12.4 gm/dl (11.8-15.2) 03/16/19 06:58 Hct 37.8 % (35.5-45.6) 03/16/19 06:58 MCV 89 fl (84-94) 03/16/19 06:58 MCH 29 pg (28-32) 03/16/19 06:58 MCHC 33 % (32-34) 03/16/19 06:58 RDW 17.8 % (13.2-15.2) H 03/16/19 06:58 Plt Count 278 K/mm3 (140-440) 03/16/19 06:58 Lymph % (Auto) 12.1 % (13.4-35.0) L 03/16/19 06:58 [place] % (Auto) 4.7 % (0.0-7.3) 03/16/19 06:58 Eos % (Auto) 0.0 % (0.0-4.3) 03/16/19 06:58 Baso % (Auto) 0.2 % (0.0-1.8) 03/16/19 06:58 Lymph # 0.8 K/mm3 (1.2-5.4) L 03/16/19 06:58 [place] # 0.3 K/mm3 (0.0-0.8) 03/16/19 06:58 Eos # 0.0 K/mm3 (0.0-0.4) 03/16/19 06:58 Baso # 0.0 K/mm3 (0.0-0.1) 03/16/19 06:58 Seg Neutrophils % 83.0 % (40.0-70.0) H 03/16/19 06:58 Seg Neutrophils # 5.3 K/mm3 (1.8-7.7) 03/16/19 06:58 PT 15.4 Sec. (12.2-14.9) H 03/17/19 05:08 INR 1.15 (0.87-1.13) H 03/17/19 05:08 POC ABG pH 7.354 (7.35-7.45) 03/16/19 08:36 POC ABG pCO2 33.3 (35-45) L 03/16/19 08:36 POC ABG pO2 79 (80-105) L 03/16/19 08:36 POC ABG HCO3 18.6 (22-26 mml/L) 03/16/19 08:36 POC ABG Total CO2 20 (23-27mmol/L) 03/16/19 08:36 POC ABG O2 Sat 95 03/16/19 08:36 POC ABG Base Excess -7 ((-2) - (+3)mmol/L) 03/16/19 08:36 Sodium 139 mmol/L (137-145) 03/16/19 06:58 Potassium 4.7 mmol/L (3.6-5.0) 03/16/19 06:58 Chloride 108.3 mmol/L (98-107) H 03/16/19 06:58 Carbon Dioxide 21 mmol/L (22-30) L 03/16/19 06:58 Anion Gap 14 mmol/L 03/16/19 06:58 BUN 19 mg/dL (9-20) 03/16/19 06:58 Creatinine 1.0 mg/dL (0.8-1.5) 03/16/19 06:58 Estimated GFR > 60 ml/min 03/16/19 06:58 BUN/Creatinine Ratio 19 % 03/16/19 06:58 Glucose 272 mg/dL (75-100) H 03/16/19 06:58 POC Glucose 251 (70-105) H 03/17/19 12:37 Hemoglobin A1c 8.1 % (4-6) H 03/14/19 16:48 Calcium 8.3 mg/dL (8.4-10.2) L 03/16/19 06:58 Magnesium 1.90 mg/dL (1.7-2.3) 03/14/19 12:23 NT-Pro-B Natriuret Pep 1893 pg/mL (0-900) H 03/14/19 12:23 Triglycerides 87 mg/dL (2-149) 03/14/19 12:23 Cholesterol 166 mg/dL (50-199) 03/14/19 12:23 LDL Cholesterol Direct 116 mg/dL (50-130) 03/14/19 12:23 HDL Cholesterol 51 mg/dL (40-59) 03/14/19 12:23 Cholesterol/HDL Ratio 3.25 % 03/14/19 12:23 TSH 1.380 mlU/mL (0.270-4.200) 03/14/19 12:23 [place] 0.3 mmol/L (0.0-1.2) 03/14/19 15:09 Active Medications - Current Medications Current Medications: Generic Name Dose Route Start Last Admin Trade Name Freq PRN Reason Stop Dose Admin Acetaminophen 650 mg 03/14/19 15:43 Tylenol PO Q4H PRN Pain MILD(1-3)/Fever >100.5/RAMOS Albuterol 2.5 mg 03/14/19 21:23 03/15/19 12:16 Proventil IH 2.5 mg Q4HRT PRN Administration Shortness Of Breath Albuterol/Ipratropium 1 ampul 03/15/19 14:00 03/17/19 08:44 Duoneb *Not For Prn Use* IH Not Given Q6HRT YADY Alprazolam 0.5 mg 03/14/19 16:19 03/15/19 13:41 Xanax PO 0.5 mg Q8HR PRN Administration Anxiety Aspirin 81 mg 03/15/19 10:00 03/17/19 10:19 Baby Aspirin PO 81 mg DAILY YADY Administration Carvedilol 3.125 mg 03/16/19 22:00 03/17/19 10:19 Coreg PO 3.125 mg BID YADY Administration Dextrose 50 ml 03/14/19 15:43 D50w (25gm) Syringe IV PRN PRN Hypoglycemia Docusate Sodium 100 mg 03/14/19 22:00 03/17/19 10:19 Colace PO 100 mg BID YADY Administration Enoxaparin Sodium 80 mg 03/14/19 22:00 03/17/19 10:20 Lovenox SUB-Q 80 mg Q12HR YADY Administration Furosemide 40 mg 03/16/19 18:00 03/17/19 05:27 Lasix IV 40 mg 0600,1800 YADY Administration Azithromycin 500 mg/ Sodium 250 mls @ 250 mls/hr 03/15/19 14:00 03/17/19 11:06 Chloride IV 250 mls/hr Q24HR YADY Administration Protocol Ceftriaxone Sodium 2 gm in 100 mls @ 200 mls/hr 03/15/19 14:00 03/17/19 11:05 Rocephin/Ns 2 Gm/100 Ml IV 200 mls/hr Q24HR YADY Administration Protocol Milrinone Lactate/Dextrose 20 mg in 100 mls @ 6.09 mls/hr 03/16/19 13:00 03/17/19 13:14 Milrinone-D5w 20 Mg/100 Ml IV 0.25 mcg/kg/min TITR YADY 6.09 mls/hr Infusion Protocol 0.25 MCG/KG/MIN Insulin Glargine 10 units 03/14/19 22:00 03/16/19 21:53 Lantus SUB-Q 10 units QHS YADY Administration Insulin Human Lispro 0 unit 03/14/19 16:30 03/17/19 12:43 Humalog SUB-Q 4 unit ACHS YADY Administration Protocol Lisinopril 10 mg 03/15/19 10:00 03/17/19 10:19 Zestril PO 10 mg DAILY YADY Administration Methylprednisolone Sodium Succinate 40 mg 03/15/19 14:00 03/17/19 05:27 Solu-Medrol IV 40 mg Q8HR YADY Administration Montelukast Sodium 10 mg 03/15/19 22:00 03/16/19 21:54 Singulair PO 10 mg QHS YADY Administration Morphine Sulfate 2 mg 03/14/19 15:43 Morphine IV Q4H PRN Pain, Moderate (4-6) Naloxone HCl 0.1 mg 03/14/19 15:43 Narcan 0.4 Mg/1 Ml IV Q2MIN PRN Res Rate </= 8 or 02 SAT < 92% Nicotine 14 mg 03/15/19 15:00 03/17/19 10:19 Habitrol TD 14 mg QDAY YADY Administration Ondansetron HCl 4 mg 03/14/19 15:43 Zofran IV Q8H PRN Nausea And Vomiting Potassium Chloride 10 meq 03/15/19 13:00 03/17/19 10:19 K-Dur PO 10 meq QDAY YADY Administration Risperidone 1 mg 03/15/19 22:00 03/16/19 21:54 Risperdal PO 1 mg HS YADY Administration Sodium Chloride 10 ml 04/15/19 22:00 03/17/19 10:21 Sodium Chloride Flush Syringe 10 Ml IV 10 ml BID YADY Administration Sodium Chloride 10 ml 03/14/19 15:43 03/17/19 05:28 Sodium Chloride Flush Syringe 10 Ml IV 10 ml PRN PRN Administration LINE FLUSH Warfarin Sodium 7.5 mg 03/17/19 17:00 Coumadin PO DAILY@1700 [facility] Protocol Zolpidem Tartrate 5 mg 03/14/19 15:43 03/14/19 23:30 Ambien PO 5 mg QHS PRN Administration Insomnia Nutrition/Malnutrition Assess - Dietary Evaluation Nutrition/Malnutrition Findings: Nutrition Notes Start: 03/15/19 09:53 Freq: Status: Active Protocol: Document 03/17/19 10:15 SA (Rec: 03/17/19 10:29 [email or web address]) Co-Sign 03/17/19 10:15 LP Nutrition Notes Need for Assessment generated from: Education Initial or Follow up Reassessment Current Diagnosis Diabetes,Hypertension,Heart Failure Other Pertinent Diagnosis Insomnia, depression, anxiety, nicotine dependence Current Diet Cardiac/Consistent Carbohydrate Labs/Tests Glu: 272 Ca: 8.3 Pertinent Medications Reviewed Height 6 ft 1 in Weight 81.2 kg [place] Body Weight (kg) 83.63 BMI 23.6 Subjective/Other Information Screened for Vitamin K/ Coumadin interaction. Patient states appetite is off and on. Pt eating 75% of meals. Pt denies N/V/D. Pt states UBW: 176#. Pt interested in ONS. Percent of energy/protein needs met: 69%/97% Burn Absent Trauma Absent #2 Nutrition Diagnosis Food and nutrition-related knowledge deficit Etiology lack of diet education on Vitamin K foods and medications As Evidenced by Signs and Symptoms pt states he is unsure of interaction between vitamin k foods and medications Is patient on ventilator? No Is Patient Ambulatory and/or Out of Bed Yes REE-([place]min[place]-St. Jeor-ambulatory/OOB) [ 2165.644 [id number]] Additional Notes Pro: (0.8-1g/kg) 65-81g/day Fluid: 1 mL/kcal or per MD request Nutrition Intervention Change Diet Order: Continue current or per MD request Nutrition Support: Glucerna daily Kcal 220 Protein (gm) 10 Teaching Recipient Patient Learning Readiness Good Teaching Methods Discussion,Handout Response to Teaching Verbalize understanding Education Handouts Provided Vitamin K and Medications Barriers to Learning No Barriers RD phone number provided Yes Patient aware of follow up options Yes Goal #1 Meet at least 75% of energy and protein needs from PO intake Goal #2 Adherence to diet education of Vitamin K foods and medication interactions Anticipated Discharge Needs: Cardiac/Consistent carbohydrate Follow-Up By: 03/22/19 Additional Comments F/U: PO intake
--- NOTE | 2019-03-17 13:52 | Progress Note ---
Assessment and Plan Acute COPD exacerbation. Mild to moderate pulmonary hypertension. Nonischemic Dilated cardiomyopathy Apical LV thrombus Bilateral community-acquired pneumonia Acute hypoxemic respiratory failure Diabetes mellitus type 2 Hypertension Depression Insomnia Tobacco abuse - continue bronchodilators with pulmonary hygiene per RT - supplemental oxygen as needed to keep O2 sat's > 90% - continue empiric AB's - continue systemic steroids but reduced frequency to q12h - resend sputum C&S (specimen contaminated) - continue diuresis - optimize cardiac status per cardiology - tobacco cessation strongly counseled - GI prophylaxis - continuye full anticoagulation for thrombus - continue other care per attending / other consultants ... re-evaluate in am & prn Subjective Date of service: 03/17/19 Principal diagnosis: AE-COPD; Pulmonary HTN; LV Thrombus; Bilateral Pulmonary Infiltrates ? PNA Interval history: Patient is seen today for: Acute COPD exacerbation; Mild to moderate pulmonary hypertension; Nonischemic Dilated cardiomyopathy; Apical LV thrombus; Bilateral community-acquired pneumonia; Acute hypoxemic respiratory failure Seen and examined at bedside; 24hour events reviewed; nursing and respiratory care staff consulted; no adverse overnight events reported to me; resting peacefully in bed; hard of hearing; feels better; less SOB; denies acute chest pains or palpitations Objective Vital Signs - 12hr 03/17/19 04:22 Temperature 98.2 F Pulse Rate 94 H Respiratory 12 Rate Blood Pressure 104/70 O2 Sat by Pulse 97 Oximetry Constitutional: no acute distress, alert, other (elderly looking AAM, normocephalic and atraumatic ) Eyes: non-icteric, other (hard of hearing) ENT: oropharynx moist, other (mallampati 2) Neck: supple, no lymphadenopathy, no JVD Effort: mildly labored Ascultation: Bilateral: rhonchi, other (prolonged exp phase) Percussion: Bilateral: not dull Cardiovascular: regular rate and rhythm Gastrointestinal: normoactive bowel sounds, soft, non-tender, non-distended Integumentary: normal Extremities: no cyanosis, no edema, pulses normal, no ischemia or petechiae Neurologic: normal mental status, non-focal exam, pupils equal and round, CN II- XII normal, unable to assess Psychiatric: mood appropriate, affect normal CBC and BMP: 03/16/19 06:58 03/16/19 06:58 ABG, PT/INR, D-dimer: ABG POC ABG pH 7.354 (7.35-7.45) 03/16/19 08:36 POC ABG pCO2 33.3 (35-45) L 03/16/19 08:36 POC ABG pO2 79 (80-105) L 03/16/19 08:36 POC ABG HCO3 18.6 (22-26 mml/L) 03/16/19 08:36 POC ABG Total CO2 20 (23-27mmol/L) 03/16/19 08:36 POC ABG O2 Sat 95 03/16/19 08:36 PT/INR, D-dimer PT 15.4 Sec. (12.2-14.9) H 03/17/19 05:08 INR 1.15 (0.87-1.13) H 03/17/19 05:08 Abnormal lab findings: Abnormal Labs 03/14/19 03/14/19 03/14/19 12:23 12:23 16:36 RDW Lymph % (Auto) Lymph # Seg Neutrophils % PT INR POC ABG pCO2 POC ABG pO2 Sodium 136 L Chloride Carbon Dioxide 18 L Glucose 306 H POC Glucose 289 H Hemoglobin A1c Calcium NT-Pro-B Natriuret Pep 1941 H 1893 H 03/14/19 03/14/19 03/15/19 16:48 21:27 08:09 RDW Lymph % (Auto) Lymph # Seg Neutrophils % PT INR POC ABG pCO2 POC ABG pO2 Sodium Chloride Carbon Dioxide Glucose POC Glucose 134 H 162 H Hemoglobin A1c 8.1 H Calcium NT-Pro-B Natriuret Pep 03/15/19 03/15/19 03/15/19 11:36 16:50 21:25 RDW Lymph % (Auto) Lymph # Seg Neutrophils % PT INR POC ABG pCO2 POC ABG pO2 Sodium Chloride Carbon Dioxide Glucose POC Glucose 174 H 111 H 170 H Hemoglobin A1c Calcium NT-Pro-B Natriuret Pep 03/16/19 03/16/19 03/16/19 06:58 06:58 07:39 RDW 17.8 H Lymph % (Auto) 12.1 L Lymph # 0.8 L Seg Neutrophils % 83.0 H PT INR POC ABG pCO2 POC ABG pO2 Sodium Chloride 108.3 H Carbon Dioxide 21 L Glucose 272 H POC Glucose 224 H Hemoglobin A1c Calcium 8.3 L NT-Pro-B Natriuret Pep 03/16/19 03/16/19 03/16/19 08:36 11:12 13:41 RDW Lymph % (Auto) Lymph # Seg Neutrophils % PT 15.2 H INR POC ABG pCO2 33.3 L POC ABG pO2 79 L Sodium Chloride Carbon Dioxide Glucose POC Glucose 354 H Hemoglobin A1c Calcium NT-Pro-B Natriuret Pep 03/16/19 03/16/19 03/17/19 17:00 20:54 05:08 RDW Lymph % (Auto) Lymph # Seg Neutrophils % PT 15.4 H INR 1.15 H POC ABG pCO2 POC ABG pO2 Sodium Chloride Carbon Dioxide Glucose POC Glucose 285 H 232 H Hemoglobin A1c Calcium NT-Pro-B Natriuret Pep 03/17/19 03/17/19 09:07 12:37 RDW Lymph % (Auto) Lymph # Seg Neutrophils % PT INR POC ABG pCO2 POC ABG pO2 Sodium Chloride Carbon Dioxide Glucose POC Glucose 232 H 251 H Hemoglobin A1c Calcium NT-Pro-B Natriuret Pep Chest x-ray: image reviewed (cardiomegaly; small bilateral effusions; basilar atelectasis vs pneumonia) Allied health notes reviewed: nursing
[2019-03-17] MEDS: COUMADIN PO SCH (17:32)
[2019-03-17] MEDS: SINGULAIR PO SCH (21:19)
[2019-03-17] MEDS: RisperDAL PO SCH (21:19)
[2019-03-17] MEDS: AMBIEN PO PRN (21:32)
[2019-03-18] MEDS: DUONEB *Not for PRN Use IH SCH ×4 (02:05→21:07)
[2019-03-18] MEDS: LASIX IV SCH ×2 (05:43→18:31)
[2019-03-18 06:01] LABS: INR 1.22 (0.87-1.13)
[2019-03-18] MEDS: SOLU-Medrol IV SCH ×3 (06:01→22:15)
--- NOTE | 2019-03-18 09:13 | Progress Note ---
Assessment and Plan Acute COPD exacerbation. Mild to moderate pulmonary hypertension. Nonischemic Dilated cardiomyopathy Apical LV thrombus Bilateral community-acquired pneumonia Acute hypoxemic respiratory failure Diabetes mellitus type 2 Hypertension Depression Insomnia Tobacco abuse - continue bronchodilators with pulmonary hygiene per RT - supplemental oxygen as needed to keep O2 sat's > 90% - continue empiric AB's - continue systemic steroids , start taper - resend sputum C&S (specimen contaminated) - continue diuresis while monitoring renal function, hemodynamics and electrolyte profile - optimize cardiac status per cardiology - tobacco cessation strongly counseled - continue full anticoagulation for thrombus - continue other care per attending / other consultants Subjective Date of service: 03/18/19 Principal diagnosis: AE-COPD; Pulmonary HTN; LV Thrombus; Bilateral Pulmonary Infiltrates ? PNA Interval history: Patient is seen today for: Acute COPD exacerbation; Mild to moderate pulmonary hypertension; Nonischemic Dilated cardiomyopathy; Apical LV thrombus; Bilateral community-acquired pneumonia; Acute hypoxemic respiratory failure Seen and examined at bedside; 24hour events reviewed; nursing and respiratory care staff consulted; no adverse overnight events reported to me; resting peacefully in bed; hard of hearing; feels better; less SOB; denies acute chest pains or palpitations Objective Vital Signs - 12hr 03/17/19 03/17/19 03/18/19 22:00 23:24 04:57 Temperature 98.0 F 98.0 F Pulse Rate 75 77 Respiratory 20 20 20 Rate Blood Pressure 96/47 96/57 O2 Sat by Pulse 94 97 Oximetry Constitutional: no acute distress, alert, other (elderly looking AAM, normo cephalic and atraumatic ) Eyes: non-icteric, other (hard of hearing) ENT: oropharynx moist, other (mallampati 2) Neck: supple, no lymphadenopathy, no JVD Effort: mildly labored Ascultation: Bilateral: rales, rhonchi, other (prolonged exp phase) Percussion: Bilateral: not dull Cardiovascular: regular rate and rhythm Gastrointestinal: normoactive bowel sounds, soft, non-tender, non-distended Integumentary: normal Extremities: no cyanosis, no edema, pulses normal, no ischemia or petechiae Neurologic: normal mental status, non-focal exam, pupils equal and round, CN II- XII normal, unable to assess Psychiatric: mood appropriate, affect normal CBC and BMP: 03/21/19 05:12 03/21/19 05:12 ABG, PT/INR, D-dimer: ABG POC ABG pH 7.354 (7.35-7.45) 03/16/19 08:36 POC ABG pCO2 33.3 (35-45) L 03/16/19 08:36 POC ABG pO2 79 (80-105) L 03/16/19 08:36 POC ABG HCO3 18.6 (22-26 mml/L) 03/16/19 08:36 POC ABG Total CO2 20 (23-27mmol/L) 03/16/19 08:36 POC ABG O2 Sat 95 03/16/19 08:36 PT/INR, D-dimer PT 16.2 Sec. (12.2-14.9) H 03/18/19 05:29 INR 1.22 (0.87-1.13) H 03/18/19 05:29 Abnormal lab findings: Abnormal Labs 03/14/19 03/14/19 03/14/19 12:23 12:23 16:36 RDW Lymph % (Auto) Lymph # Seg Neutrophils % PT INR POC ABG pCO2 POC ABG pO2 Sodium 136 L Chloride Carbon Dioxide 18 L Glucose 306 H POC Glucose 289 H Hemoglobin A1c Calcium NT-Pro-B Natriuret Pep 1941 H 1893 H 03/14/19 03/14/19 03/15/19 16:48 21:27 08:09 RDW Lymph % (Auto) Lymph # Seg Neutrophils % PT INR POC ABG pCO2 POC ABG pO2 Sodium Chloride Carbon Dioxide Glucose POC Glucose 134 H 162 H Hemoglobin A1c 8.1 H Calcium NT-Pro-B Natriuret Pep 03/15/19 03/15/19 03/15/19 11:36 16:50 21:25 RDW Lymph % (Auto) Lymph # Seg Neutrophils % PT INR POC ABG pCO2 POC ABG pO2 Sodium Chloride Carbon Dioxide Glucose POC Glucose 174 H 111 H 170 H Hemoglobin A1c Calcium NT-Pro-B Natriuret Pep 03/16/19 03/16/19 03/16/19 06:58 06:58 07:39 RDW 17.8 H Lymph % (Auto) 12.1 L Lymph # 0.8 L Seg Neutrophils % 83.0 H PT INR POC ABG pCO2 POC ABG pO2 Sodium Chloride 108.3 H Carbon Dioxide 21 L Glucose 272 H POC Glucose 224 H Hemoglobin A1c Calcium 8.3 L NT-Pro-B Natriuret Pep 03/16/19 03/16/19 03/16/19 08:36 11:12 13:41 RDW Lymph % (Auto) Lymph # Seg Neutrophils % PT 15.2 H INR POC ABG pCO2 33.3 L POC ABG pO2 79 L Sodium Chloride Carbon Dioxide Glucose POC Glucose 354 H Hemoglobin A1c Calcium NT-Pro-B Natriuret Pep 03/16/19 03/16/19 03/17/19 17:00 20:54 05:08 RDW Lymph % (Auto) Lymph # Seg Neutrophils % PT 15.4 H INR 1.15 H POC ABG pCO2 POC ABG pO2 Sodium Chloride Carbon Dioxide Glucose POC Glucose 285 H 232 H Hemoglobin A1c Calcium NT-Pro-B Natriuret Pep 03/17/19 03/17/19 03/17/19 09:07 12:37 16:50 RDW Lymph % (Auto) Lymph # Seg Neutrophils % PT INR POC ABG pCO2 POC ABG pO2 Sodium Chloride Carbon Dioxide Glucose POC Glucose 232 H 251 H 181 H Hemoglobin A1c Calcium NT-Pro-B Natriuret Pep 03/17/19 03/18/19 03/18/19 21:07 05:29 08:28 RDW Lymph % (Auto) Lymph # Seg Neutrophils % PT 16.2 H INR 1.22 H POC ABG pCO2 POC ABG pO2 Sodium Chloride Carbon Dioxide Glucose POC Glucose 200 H 114 H Hemoglobin A1c Calcium NT-Pro-B Natriuret Pep Allied health notes reviewed: nursing
[2019-03-18] MEDS: LOVENOX SUB-Q SCH ×2 (09:41→22:14)
[2019-03-18] MEDS: ZESTRIL PO SCH (09:41)
[2019-03-18] MEDS: COREG PO SCH ×2 (09:44→22:14)
[2019-03-18] MEDS: HABITROL TD SCH (09:44)
[2019-03-18] MEDS: PEPCID PO SCH (10:02)
[2019-03-18] MEDS: HumaLOG SUB-Q SCH ×4 (10:02→22:15)
[2019-03-18] MEDS: BABY ASPIRIN PO SCH (10:02)
[2019-03-18] MEDS: ROCEPHIN/NS 2 GM/100 ML 2 GM/100 ML BAG IV SCH (10:03)
[2019-03-18] MEDS: SODIUM CHLORIDE FLUSH SYRINGE 10 ML IV SCH ×2 (10:03→22:15)
[2019-03-18] MEDS: K-DUR PO SCH (10:04)
[2019-03-18] MEDS: COLACE PO SCH ×2 (10:04→22:14)
[2019-03-18] MEDS: ZITHROMAX 500 MG in NACL 0.9% 250ML 250 ML IV SCH (11:20)
[2019-03-18 11:30] LABS: BUN/Creatinine Ratio 26; Blood Urea Nitrogen 29 mg/dL (9-20); Calcium 8.4 mg/dL (8.4-10.2); Hemolysis Index 18
--- NOTE | 2019-03-18 11:36 | Progress Note ---
Assessment and Plan Acute CHF exacerbation Nonischemic cardiomyopathy cardiac cath 2015 showing non-obstructive CAD Hypertension Diabetes Apical LV thrombus Fluid/sodium restriction. Aggressive medical therapy for systolic heart failure to include a trial of IV milrinone for an additional 24 hrs. Continue warfarin therapy with lovenox bridge for apical LV thrombus. For discharge once target INR 2-3 is reached. Subjective Date of service: 03/18/19 Principal diagnosis: AE-COPD; Pulmonary HTN; LV Thrombus; Bilateral Pulmonary Infiltrates ? PNA Interval history: Patient has no complaints. Reports his breathing is better. IV milrinone continues. Patient admits he is diuresing well. Objective Vital Signs Temp Pulse Pulse Resp Resp BP Pulse Ox 03/18/19 09:12 97.9 F 95 H 20 131/82 98 03/18/19 04:57 98.0 F 77 20 96/57 97 03/17/19 23:24 98.0 F 75 20 96/47 94 03/17/19 22:00 20 03/17/19 21:11 98 03/17/19 21:06 89 18 03/17/19 20:11 98.0 F 88 18 101/58 97 03/17/19 16:37 98.8 F 100 H 18 107/65 99 03/17/19 13:23 98.9 F 89 24 110/63 96 - Physical Examination General: No Apparent Distress HEENT: Positive: PERRL Neck: Positive: trachea midline Cardiac: Positive: Reg Rate and Rhythm Lungs: Positive: Decreased Breath Sounds Neuro: Positive: Grossly Intact Extremities: Absent: edema - Labs and Meds Coagulation 03/18/19 Range/Units 05:29 PT 16.2 H (12.2-14.9) Sec. INR 1.22 H (0.87-1.13) Comprehensive Metabolic Panel 03/18/19 Range/Units 10:47 Sodium 136 L (137-145) mmol/L Potassium 4.7 (3.6-5.0) mmol/L Chloride 100.2 (98-107) mmol/L Carbon Dioxide 24 (22-30) mmol/L BUN 29 H (9-20) mg/dL Creatinine 1.1 (0.8-1.5) mg/dL Glucose 269 H (75-100) mg/dL Calcium 8.4 (8.4-10.2) mg/dL - Allied health notes Allied health notes reviewed: nursing
--- NOTE | 2019-03-18 12:31 | Progress Note ---
Assessment and Plan Assessment and plan: Acute combined systolic and diastolic heart failure. Echocardiogram reveals severe 4 chamber dilated cardiomyopathy. EF is 10-15%. Mild concentric left ventricular hypertrophy observed. Aggressive medical therapy for systolic heart failure to include a trial of IV milrinone for an additional 24 hrs. Fluid/sodium restriction. Nonischemic Dilated cardiomyopathy. As above. Apical LV thrombus. Echo revealed Apical LV thrombus present measuring 2.2 cm in largest diameter. Continue Lovenox 80 twice a day and Coumadin. Continue warfarin therapy with lovenox bridge for apical LV thrombus. For discharge once target INR 2-3 is reached. Mild to moderate pulmonary hypertension. Right ventricular systolic pressure is 38 mmHg Acute COPD exacerbation. Continue COPD pathway, bronchodilators/nebulizers and IV steroids Bilateral community-acquired pneumonia. Chest x-ray reveals right middle lobe opacity with air bronchograms and a left perihilar opacity. Start IV antibiotics Acute hypoxemic respiratory failure. Etiology secondary to pulmonary hypertension, COPD exacerbation and heart failure. Continue O2. Diabetes mellitus type 2. Continue Accu-Cheks, Lantus and sliding scale in sulin. Hypertension. Continue antihypertensive medications. Depression. Continue home meds: Remeron, Risperidone, and lithium Consult to psych pending Insomnia. Continue Ambien. Tobacco abuse. Patient with a [id number] history. Continue nicotine patch. Patient will be counseled on smoking cessation. History Interval history: Patient still complains of shortness of breath. Patient denies chest pain. Hospitalist Physical - Constitutional Vitals: Temp Pulse Resp BP Pulse Ox 97.9 F 95 H 20 131/82 98 03/18/19 09:12 03/18/19 09:12 03/18/19 10:00 03/18/19 09:12 03/18/19 09:12 General appearance: Present: no acute distress - EENT Eyes: Present: PERRL, EOM intact ENT: hearing intact, clear oral mucosa, dentition normal - Neck Neck: Present: supple, normal ROM - Respiratory Respiratory effort: normal Respiratory: bilateral: CTA - Cardiovascular Rhythm: regular Heart Sounds: Present: S1 & S2. Absent: gallop, rub - Extremities Extremities: no ischemia, No edema, Full ROM - Abdominal General gastrointestinal: soft, non-tender, non-distended, normal bowel sounds - Integumentary Integumentary: Present: clear, warm, dry - Neurologic Neurologic: CNII-XII intact, moves all extremities Results - Labs CBC & Chem 7: 03/16/19 06:58 03/18/19 10:47 Labs: Laboratory Last Values WBC 6.4 K/mm3 (4.5-11.0) 03/16/19 06:58 RBC 4.27 M/mm3 (3.65-5.03) 03/16/19 06:58 Hgb 12.4 gm/dl (11.8-15.2) 03/16/19 06:58 Hct 37.8 % (35.5-45.6) 03/16/19 06:58 MCV 89 fl (84-94) 03/16/19 06:58 MCH 29 pg (28-32) 03/16/19 06:58 MCHC 33 % (32-34) 03/16/19 06:58 RDW 17.8 % (13.2-15.2) H 03/16/19 06:58 Plt Count 278 K/mm3 (140-440) 03/16/19 06:58 Lymph % (Auto) 12.1 % (13.4-35.0) L 03/16/19 06:58 [place] % (Auto) 4.7 % (0.0-7.3) 03/16/19 06:58 Eos % (Auto) 0.0 % (0.0-4.3) 03/16/19 06:58 Baso % (Auto) 0.2 % (0.0-1.8) 03/16/19 06:58 Lymph # 0.8 K/mm3 (1.2-5.4) L 03/16/19 06:58 [place] # 0.3 K/mm3 (0.0-0.8) 03/16/19 06:58 Eos # 0.0 K/mm3 (0.0-0.4) 03/16/19 06:58 Baso # 0.0 K/mm3 (0.0-0.1) 03/16/19 06:58 Seg Neutrophils % 83.0 % (40.0-70.0) H 03/16/19 06:58 Seg Neutrophils # 5.3 K/mm3 (1.8-7.7) 03/16/19 06:58 PT 16.2 Sec. (12.2-14.9) H 03/18/19 05:29 INR 1.22 (0.87-1.13) H 03/18/19 05:29 POC ABG pH 7.354 (7.35-7.45) 03/16/19 08:36 POC ABG pCO2 33.3 (35-45) L 03/16/19 08:36 POC ABG pO2 79 (80-105) L 03/16/19 08:36 POC ABG HCO3 18.6 (22-26 mml/L) 03/16/19 08:36 POC ABG Total CO2 20 (23-27mmol/L) 03/16/19 08:36 POC ABG O2 Sat 95 03/16/19 08:36 POC ABG Base Excess -7 ((-2) - (+3)mmol/L) 03/16/19 08:36 Sodium 136 mmol/L (137-145) L 03/18/19 10:47 Potassium 4.7 mmol/L (3.6-5.0) 03/18/19 10:47 Chloride 100.2 mmol/L (98-107) 03/18/19 10:47 Carbon Dioxide 24 mmol/L (22-30) 03/18/19 10:47 Anion Gap 17 mmol/L 03/18/19 10:47 BUN 29 mg/dL (9-20) H 03/18/19 10:47 Creatinine 1.1 mg/dL (0.8-1.5) 03/18/19 10:47 Estimated GFR > 60 ml/min 03/18/19 10:47 BUN/Creatinine Ratio 26 % 03/18/19 10:47 Glucose 269 mg/dL (75-100) H 03/18/19 10:47 POC Glucose 306 (70-105) H 03/18/19 11:39 Hemoglobin A1c 8.1 % (4-6) H 03/14/19 16:48 Calcium 8.4 mg/dL (8.4-10.2) 03/18/19 10:47 Magnesium 2.00 mg/dL (1.7-2.3) 03/18/19 10:47 NT-Pro-B Natriuret Pep 1893 pg/mL (0-900) H 03/14/19 12:23 Triglycerides 87 mg/dL (2-149) 03/14/19 12:23 Cholesterol 166 mg/dL (50-199) 03/14/19 12:23 LDL Cholesterol Direct 116 mg/dL (50-130) 03/14/19 12:23 HDL Cholesterol 51 mg/dL (40-59) 03/14/19 12:23 Cholesterol/HDL Ratio 3.25 % 03/14/19 12:23 TSH 1.380 mlU/mL (0.270-4.200) 03/14/19 12:23 [place] 0.3 mmol/L (0.0-1.2) 03/14/19 15:09 Active Medications - Current Medications Current Medications: Generic Name Dose Route Start Last Admin Trade Name Freq PRN Reason Stop Dose Admin Acetaminophen 650 mg 03/14/19 15:43 Tylenol PO Q4H PRN Pain MILD(1-3)/Fever >100.5/RAMOS Albuterol 2.5 mg 03/14/19 21:23 03/15/19 12:16 Proventil IH 2.5 mg Q4HRT PRN Administration Shortness Of Breath Albuterol/Ipratropium 1 ampul 03/15/19 14:00 03/18/19 07:51 Duoneb *Not For Prn Use* IH 1 ampul Q6HRT YADY Administration Alprazolam 0.5 mg 03/14/19 16:19 03/15/19 13:41 Xanax PO 0.5 mg Q8HR PRN Administration Anxiety Aspirin 81 mg 03/15/19 10:00 03/18/19 10:02 Baby Aspirin PO 81 mg DAILY YADY Administration Carvedilol 3.125 mg 03/16/19 22:00 03/18/19 09:44 Coreg PO 3.125 mg BID YADY Administration Dextrose 50 ml 03/14/19 15:43 D50w (25gm) Syringe IV PRN PRN Hypoglycemia Docusate Sodium 100 mg 03/14/19 22:00 03/18/19 10:04 Colace PO 100 mg BID YADY Administration Enoxaparin Sodium 80 mg 03/14/19 22:00 03/18/19 09:41 Lovenox SUB-Q 80 mg Q12HR YADY Administration Famotidine 20 mg 03/18/19 10:00 03/18/19 10:02 Pepcid PO 20 mg QDAY YADY Administration Furosemide 40 mg 03/16/19 18:00 04/19/19 05:43 Lasix IV Not Given 0600,1800 [facility] Azithromycin 500 mg/ Sodium 250 mls @ 250 mls/hr 03/15/19 14:00 03/18/19 11:20 Chloride IV 250 mls/hr Q24HR [facility] Administration Protocol Ceftriaxone Sodium 2 gm in 100 mls @ 200 mls/hr 03/15/19 14:00 03/18/19 10:03 Rocephin/Ns 2 Gm/100 Ml IV 200 mls/hr Q24HR [facility] Administration Protocol Milrinone Lactate/Dextrose 20 mg in 100 mls @ 6.09 mls/hr 03/16/19 13:00 03/17/19 20:47 Milrinone-D5w 20 Mg/100 Ml IV 03/19/19 13:00 0.25 mcg/kg/min TITR YADY 6.09 mls/hr Administration Protocol 0.25 MCG/KG/MIN Insulin Human Isoph/Insulin Regular 25 unit 03/17/19 21:00 03/18/19 09:44 Humulin 70/30 SUB-Q 25 unit BIDDIAB [facility] Administration Insulin Human Lispro 0 unit 03/14/19 16:30 03/18/19 12:24 Humalog SUB-Q 6 unit ACHS [facility] Administration Protocol Lisinopril 10 mg 03/15/19 10:00 03/18/19 09:41 Zestril PO 10 mg DAILY [facility] Administration Methylprednisolone Sodium Succinate 40 mg 03/18/19 10:00 03/18/19 10:03 Solu-Medrol IV 40 mg Q12H [facility] Administration Montelukast Sodium 10 mg 03/15/19 22:00 03/17/19 21:19 Singulair PO 10 mg QHS [facility] Administration Morphine Sulfate 2 mg 03/14/19 15:43 Morphine IV Q4H PRN Pain, Moderate (4-6) Naloxone HCl 0.1 mg 03/14/19 15:43 Narcan 0.4 Mg/1 Ml IV Q2MIN PRN Res Rate </= 8 or 02 SAT < 92% Nicotine 14 mg 03/15/19 15:00 03/18/19 09:44 Habitrol TD 14 mg QDAY [facility] Administration Ondansetron HCl 4 mg 03/14/19 15:43 Zofran IV Q8H PRN Nausea And Vomiting Potassium Chloride 10 meq 03/15/19 13:00 03/18/19 10:04 K-Dur PO 10 meq QDAY YADY Administration Risperidone 1 mg 03/15/19 22:00 03/17/19 21:19 Risperdal PO 1 mg HS YADY Administration Sodium Chloride 10 ml 03/14/19 22:00 03/18/19 10:03 Sodium Chloride Flush Syringe 10 Ml IV 10 ml BID YADY Administration Sodium Chloride 10 ml 03/14/19 15:43 03/17/19 05:28 Sodium Chloride Flush Syringe 10 Ml IV 10 ml PRN PRN Administration LINE FLUSH Warfarin Sodium 7.5 mg 03/17/19 17:00 03/17/19 17:32 Coumadin PO 7.5 mg DAILY@1700 YADY Administration Protocol Zolpidem Tartrate 5 mg 03/14/19 15:43 03/17/19 21:32 Ambien PO 5 mg QHS PRN Administration Insomnia Nutrition/Malnutrition Assess - Dietary Evaluation Nutrition/Malnutrition Findings: Nutrition Notes Start: 03/15/19 09:53 Freq: Status: Active Protocol: Document 03/17/19 10:15 SA (Rec: 03/17/19 10:29 [facility]-[id number]) Co-Sign 03/17/19 10:15 LP Nutrition Notes Need for Assessment generated from: Education Initial or Follow up Reassessment Current Diagnosis Diabetes,Hypertension,Heart Failure Other Pertinent Diagnosis Insomnia, depression, anxiety, nicotine dependence Current Diet Cardiac/Consistent Carbohydrate Labs/Tests Glu: 272 Ca: 8.3 Pertinent Medications Reviewed Height 6 ft 1 in Weight 81.2 kg [place] Body Weight (kg) 83.63 BMI 23.6 Subjective/Other Information Screened for Vitamin K/ Coumadin interaction. Patient states appetite is off and on. Pt eating 75% of meals. Pt denies N/V/D. Pt states UBW: 176#. Pt interested in ONS. Percent of energy/protein needs met: 69%/97% Burn Absent Trauma Absent #2 Nutrition Diagnosis Food and nutrition-related knowledge deficit Etiology lack of diet education on Vitamin K foods and medications As Evidenced by Signs and Symptoms pt states he is unsure of interaction between vitamin k foods and medications Is patient on ventilator? No Is Patient Ambulatory and/or Out of Bed Yes REE-([place]-St. Jeor-ambulatory/OOB) [ 0605.644 NUTR.MSJOOB] Additional Notes Pro: (0.8-1g/kg) 65-81g/day Fluid: 1 mL/kcal or per MD request Nutrition Intervention Change Diet Order: Continue current or per MD request Nutrition Support: Glucerna daily Kcal 220 Protein (gm) 10 Teaching Recipient Patient Learning Readiness Good Teaching Methods Discussion,Handout Response to Teaching Verbalize understanding Education Handouts Provided Vitamin K and Medications Barriers to Learning No Barriers RD phone number provided Yes Patient aware of follow up options Yes Goal #1 Meet at least 75% of energy and protein needs from PO intake Goal #2 Adherence to diet education of Vitamin K foods and medication interactions Anticipated Discharge Needs: Cardiac/Consistent carbohydrate Follow-Up By: 03/22/19 Additional Comments F/U: PO intake
[2019-03-18] MEDS: MILRINONE-D5W 20 MG/100 ML 20 MG/100 ML BAG IV SCH (14:04)
[2019-03-18] MEDS: COUMADIN PO SCH (17:32)
[2019-03-18] MEDS: SINGULAIR PO SCH (22:14)
[2019-03-18] MEDS: RisperDAL PO SCH (22:14)
[2019-03-18] MEDS: AMBIEN PO PRN (22:15)
[2019-03-19] MEDS: DUONEB *Not for PRN Use IH SCH ×4 (03:32→21:11)
[2019-03-19] MEDS: XANAX PO PRN (03:54)
[2019-03-19] MEDS: MILRINONE-D5W 20 MG/100 ML 20 MG/100 ML BAG IV SCH (05:45)
[2019-03-19] MEDS: LASIX IV SCH ×2 (05:47→17:23)
[2019-03-19 07:54] LABS: INR 1.49 (0.87-1.13)
[2019-03-19] MEDS: ROCEPHIN/NS 2 GM/100 ML 2 GM/100 ML BAG IV SCH (09:41)
[2019-03-19] MEDS: PEPCID PO SCH (09:42)
[2019-03-19] MEDS: COREG PO SCH ×2 (09:42→22:03)
[2019-03-19] MEDS: HABITROL TD SCH (09:42)
[2019-03-19] MEDS: BABY ASPIRIN PO SCH (09:42)
[2019-03-19] MEDS: COLACE PO SCH ×2 (09:43→22:03)
[2019-03-19] MEDS: LOVENOX SUB-Q SCH ×2 (09:43→22:02)
[2019-03-19] MEDS: HumaLOG SUB-Q SCH ×4 (09:44→22:04)
[2019-03-19] MEDS: SODIUM CHLORIDE FLUSH SYRINGE 10 ML IV SCH ×2 (09:57→22:04)
--- NOTE | 2019-03-19 11:09 | Progress Note ---
Assessment and Plan Acute CHF exacerbation Nonischemic cardiomyopathy cardiac cath 2015 showing non-obstructive CAD Hypertension Diabetes Apical LV thrombus Fluid/sodium restriction. Aggressive medical therapy for systolic heart failure to include a trial of IV milrinone for an additional 24 hrs. Continue warfarin therapy with lovenox bridge for apical LV thrombus. For discharge once target INR 2-3 is reached. Subjective Date of service: 03/19/19 Principal diagnosis: AE-COPD; Pulmonary HTN; LV Thrombus; Bilateral Pulmonary Infiltrates ? PNA Interval history: No events overnight Objective Vital Signs Temp Pulse Pulse Resp Resp BP Pulse Ox 03/19/19 09:42 83 113/73 03/19/19 08:50 98.4 F 83 18 113/73 96 03/19/19 05:13 98.0 F 83 18 108/70 98 03/19/19 03:53 78 18 105/71 95 03/19/19 03:44 80 18 03/19/19 03:34 81 18 03/18/19 23:31 98.0 F 84 20 91/54 95 03/18/19 21:19 86 18 03/18/19 21:09 82 18 82 L 03/18/19 20:40 18 03/18/19 19:26 97.0 F L 83 20 111/75 100 03/18/19 15:48 98.4 F 90 18 114/75 99 03/18/19 14:04 89 20 03/18/19 13:56 86 20 - Physical Examination Narrative exam: Physical examination Vitals reviewed GEN: No acute distress noted HEENT: Carotids 2+ NECK: Supple CVS: S1 and S2 heard no significant murmur or gallop noted LUNGS/CHEST: Normal auscultation ABD: Soft nontender Extremities: No edema noted normal color NEURO: Alert moves all all 4 extremities PSY: Stable General: No Apparent Distress HEENT: Positive: PERRL Neck: Positive: trachea midline Neuro: Positive: Grossly Intact Extremities: Absent: edema - Labs and Meds Coagulation 03/19/19 Range/Units 07:00 PT 19.0 H (12.2-14.9) Sec. INR 1.49 H (0.87-1.13) Comprehensive Metabolic Panel 03/18/19 Range/Units 10:47 Sodium 136 L (137-145) mmol/L Potassium 4.7 (3.6-5.0) mmol/L Chloride 100.2 (98-107) mmol/L Carbon Dioxide 24 (22-30) mmol/L BUN 29 H (9-20) mg/dL Creatinine 1.1 (0.8-1.5) mg/dL Glucose 269 H (75-100) mg/dL Calcium 8.4 (8.4-10.2) mg/dL - Allied health notes Allied health notes reviewed: nursing
--- NOTE | 2019-03-19 11:24 | Progress Note ---
Assessment and Plan Assessment and plan: Acute combined systolic and diastolic heart failure. Echocardiogram reveals severe 4 chamber dilated cardiomyopathy. EF is 10-15%. Mild concentric left ventricular hypertrophy observed. IV milrinone per cardiology. Fluid/sodium restriction. Nonischemic Dilated cardiomyopathy. As above. Apical LV thrombus. Echo revealed Apical LV thrombus present measuring 2.2 cm in largest diameter. Continue Lovenox 80 twice a day and Coumadin. Continue warfarin therapy with lovenox bridge for apical LV thrombus. For discharge once target INR 2-3 is reached. Mild to moderate pulmonary hypertension. Right ventricular systolic pressure is 38 mmHg Acute COPD exacerbation. Continue COPD pathway, bronchodilators/nebulizers and IV steroids Bilateral community-acquired pneumonia. Chest x-ray reveals right middle lobe opacity with air bronchograms and a left perihilar opacity. Start IV antibiotic s Acute hypoxemic respiratory failure. Etiology secondary to pulmonary hypertension, COPD exacerbation and heart failure. Continue O2. Diabetes mellitus type 2. Continue Accu-Cheks, Lantus and sliding scale insulin. Hypertension. Continue antihypertensive medications. Depression. Continue home meds: Remeron, Risperidone, and lithium Consult to psych pending Insomnia. Continue Ambien. Tobacco abuse. Patient with a [id number] history. Continue nicotine patch. Patient will be counseled on smoking cessation. History Interval history: Patient still complains of shortness of breath. Patient denies chest pain. Hospitalist Physical - Constitutional Vitals: Temp Pulse Resp BP Pulse Ox 98.4 F 83 18 113/73 96 03/19/19 08:50 03/19/19 09:42 03/19/19 08:50 03/19/19 09:42 03/19/19 08:50 General appearance: Present: no acute distress - EENT Eyes: Present: PERRL, EOM intact ENT: hearing intact, clear oral mucosa, dentition normal - Neck Neck: Present: supple, normal ROM - Respiratory Respiratory effort: normal Respiratory: bilateral: CTA - Cardiovascular Rhythm: regular Heart Sounds: Present: S1 & S2. Absent: gallop, rub - Extremities Extremities: no ischemia, No edema, Full ROM - Abdominal General gastrointestinal: soft, non-tender, non-distended, normal bowel sounds - Integumentary Integumentary: Present: clear, warm, dry - Neurologic Neurologic: CNII-XII intact, moves all extremities Results - Labs CBC & Chem 7: 03/16/19 06:58 03/18/19 10:47 Labs: Laboratory Last Values WBC 6.4 K/mm3 (4.5-11.0) 03/16/19 06:58 RBC 4.27 M/mm3 (3.65-5.03) 03/16/19 06:58 Hgb 12.4 gm/dl (11.8-15.2) 03/16/19 06:58 Hct 37.8 % (35.5-45.6) 03/16/19 06:58 MCV 89 fl (84-94) 03/16/19 06:58 MCH 29 pg (28-32) 03/16/19 06:58 MCHC 33 % (32-34) 03/16/19 06:58 RDW 17.8 % (13.2-15.2) H 03/16/19 06:58 Plt Count 278 K/mm3 (140-440) 03/16/19 06:58 Lymph % (Auto) 12.1 % (13.4-35.0) L 03/16/19 06:58 [place] % (Auto) 4.7 % (0.0-7.3) 03/16/19 06:58 Eos % (Auto) 0.0 % (0.0-4.3) 03/16/19 06:58 Baso % (Auto) 0.2 % (0.0-1.8) 03/16/19 06:58 Lymph # 0.8 K/mm3 (1.2-5.4) L 03/16/19 06:58 [place] # 0.3 K/mm3 (0.0-0.8) 03/16/19 06:58 Eos # 0.0 K/mm3 (0.0-0.4) 03/16/19 06:58 Baso # 0.0 K/mm3 (0.0-0.1) 03/16/19 06:58 Seg Neutrophils % 83.0 % (40.0-70.0) H 03/16/19 06:58 Seg Neutrophils # 5.3 K/mm3 (1.8-7.7) 03/16/19 06:58 PT 19.0 Sec. (12.2-14.9) H 03/19/19 07:00 INR 1.49 (0.87-1.13) H 03/19/19 07:00 POC ABG pH 7.354 (7.35-7.45) 03/16/19 08:36 POC ABG pCO2 33.3 (35-45) L 03/16/19 08:36 POC ABG pO2 79 (80-105) L 03/16/19 08:36 POC ABG HCO3 18.6 (22-26 mml/L) 03/16/19 08:36 POC ABG Total CO2 20 (23-27mmol/L) 03/16/19 08:36 POC ABG O2 Sat 95 03/16/19 08:36 POC ABG Base Excess -7 ((-2) - (+3)mmol/L) 03/16/19 08:36 Sodium 136 mmol/L (137-145) L 03/18/19 10:47 Potassium 4.7 mmol/L (3.6-5.0) 03/18/19 10:47 Chloride 100.2 mmol/L (98-107) 03/18/19 10:47 Carbon Dioxide 24 mmol/L (22-30) 03/18/19 10:47 Anion Gap 17 mmol/L 03/18/19 10:47 BUN 29 mg/dL (9-20) H 03/18/19 10:47 Creatinine 1.1 mg/dL (0.8-1.5) 03/18/19 10:47 Estimated GFR > 60 ml/min 03/18/19 10:47 BUN/Creatinine Ratio 26 % 03/18/19 10:47 Glucose 269 mg/dL (75-100) H 03/18/19 10:47 POC Glucose 193 (70-105) H 03/19/19 07:48 Hemoglobin A1c 8.1 % (4-6) H 03/14/19 16:48 Calcium 8.4 mg/dL (8.4-10.2) 03/18/19 10:47 Magnesium 2.00 mg/dL (1.7-2.3) 03/18/19 10:47 NT-Pro-B Natriuret Pep 1893 pg/mL (0-900) H 03/14/19 12:23 Triglycerides 87 mg/dL (2-149) 03/14/19 12:23 Cholesterol 166 mg/dL (50-199) 03/14/19 12:23 LDL Cholesterol Direct 116 mg/dL (50-130) 03/14/19 12:23 HDL Cholesterol 51 mg/dL (40-59) 03/14/19 12:23 Cholesterol/HDL Ratio 3.25 % 03/14/19 12:23 TSH 1.380 mlU/mL (0.270-4.200) 03/14/19 12:23 [place] 0.3 mmol/L (0.0-1.2) 03/14/19 15:09 Active Medications - Current Medications Current Medications: Generic Name Dose Route Start Last Admin Trade Name Freq PRN Reason Stop Dose Admin Acetaminophen 650 mg 03/14/19 15:43 Tylenol PO Q4H PRN Pain MILD(1-3)/Fever >100.5/RAMOS Albuterol 2.5 mg 03/14/19 21:23 03/15/19 12:16 Proventil IH 2.5 mg Q4HRT PRN Administration Shortness Of Breath Albuterol/Ipratropium 1 ampul 03/15/19 14:00 03/19/19 09:50 Duoneb *Not For Prn Use* IH 1 ampul Q6HRT YADY Administration Alprazolam 0.5 mg 03/14/19 16:19 03/19/19 03:54 Xanax PO 0.5 mg Q8HR PRN Administration Anxiety Aspirin 81 mg 03/15/19 10:00 03/19/19 09:42 Baby Aspirin PO 81 mg DAILY YADY Administration Carvedilol 3.125 mg 03/16/19 22:00 03/19/19 09:42 Coreg PO 3.125 mg BID YADY Administration Dextrose 50 ml 03/14/19 15:43 D50w (25gm) Syringe IV PRN PRN Hypoglycemia Docusate Sodium 100 mg 03/14/19 22:00 03/19/19 09:43 Colace PO 100 mg BID YADY Administration Enoxaparin Sodium 80 mg 03/14/19 22:00 03/19/19 09:43 Lovenox SUB-Q 80 mg Q12HR YADY Administration Famotidine 20 mg 03/18/19 10:00 03/19/19 09:42 Pepcid PO 20 mg QDAY YADY Administration Furosemide 40 mg 03/16/19 18:00 03/19/19 05:47 Lasix IV 40 mg 0600,1800 YADY Administration Azithromycin 500 mg/ Sodium 250 mls @ 250 mls/hr 03/15/19 14:00 03/18/19 11:20 Chloride IV 250 mls/hr Q24HR YADY Administration Protocol Ceftriaxone Sodium 2 gm in 100 mls @ 200 mls/hr 03/15/19 14:00 03/19/19 09:41 Rocephin/Ns 2 Gm/100 Ml IV 200 mls/hr Q24HR YADY Administration Protocol Milrinone Lactate/Dextrose 20 mg in 100 mls @ 6.09 mls/hr 03/16/19 13:00 03/19/19 05:45 Milrinone-D5w 20 Mg/100 Ml IV 03/19/19 13:00 0.25 mcg/kg/min TITR YADY 6.09 mls/hr Administration Protocol 0.25 MCG/KG/MIN Insulin Human Isoph/Insulin Regular 25 unit 03/17/19 21:00 03/19/19 09:45 Humulin 70/30 SUB-Q 25 unit BIDDIAB [facility] Administration Insulin Human Lispro 0 unit 03/14/19 16:30 03/19/19 09:44 Humalog SUB-Q 2 unit ACHS [facility] Administration Protocol Lisinopril 10 mg 03/15/19 10:00 03/18/19 09:41 Zestril PO 10 mg DAILY YADY Administration Methylprednisolone Sodium Succinate 40 mg 03/18/19 10:00 03/18/19 22:15 Solu-Medrol IV 40 mg Q12H YADY Administration Montelukast Sodium 10 mg 03/15/19 22:00 03/18/19 22:14 Singulair PO 10 mg QHS YADY Administration Morphine Sulfate 2 mg 03/14/19 15:43 Morphine IV Q4H PRN Pain, Moderate (4-6) Naloxone HCl 0.1 mg 03/14/19 15:43 Narcan 0.4 Mg/1 Ml IV Q2MIN PRN Res Rate </= 8 or 02 SAT < 92% Nicotine 14 mg 03/15/19 15:00 03/19/19 09:42 Habitrol TD 14 mg QDAY YADY Administration Ondansetron HCl 4 mg 03/14/19 15:43 Zofran IV Q8H PRN Nausea And Vomiting Potassium Chloride 10 meq 03/15/19 13:00 03/18/19 10:04 K-Dur PO 10 meq QDAY YADY Administration Risperidone 1 mg 03/15/19 22:00 03/18/19 22:14 Risperdal PO 1 mg HS YADY Administration Sodium Chloride 10 ml 03/14/19 22:00 03/19/19 09:57 Sodium Chloride Flush Syringe 10 Ml IV 10 ml BID YADY Administration Sodium Chloride 10 ml 03/14/19 15:43 03/17/19 05:28 Sodium Chloride Flush Syringe 10 Ml IV 10 ml PRN PRN Administration LINE FLUSH Warfarin Sodium 7.5 mg 03/17/19 17:00 03/18/19 17:32 Coumadin PO 7.5 mg DAILY@1700 YADY Administration Protocol Zolpidem Tartrate 5 mg 03/14/19 15:43 03/18/19 22:15 Ambien PO 5 mg QHS PRN Administration Insomnia Nutrition/Malnutrition Assess - Dietary Evaluation Nutrition/Malnutrition Findings: Nutrition Notes Start: 03/15/19 09:53 Freq: Status: Active Protocol: Document 03/17/19 10:15 SA (Rec: 03/17/19 10:29 [facility]-[id number]) Co-Sign 03/17/19 10:15 LP Nutrition Notes Need for Assessment generated from: Education Initial or Follow up Reassessment Current Diagnosis Diabetes,Hypertension,Heart Failure Other Pertinent Diagnosis Insomnia, depression, anxiety, nicotine dependence Current Diet Cardiac/Consistent Carbohydrate Labs/Tests Glu: 272 Ca: 8.3 Pertinent Medications Reviewed Height 6 ft 1 in Weight 81.2 kg [place] Body Weight (kg) 83.63 BMI 23.6 Subjective/Other Information Screened for Vitamin K/ Coumadin interaction. Patient states appetite is off and on. Pt eating 75% of meals. Pt denies N/V/D. Pt states UBW: 176#. Pt interested in ONS. Percent of energy/protein needs met: 69%/97% Burn Absent Trauma Absent #2 Nutrition Diagnosis Food and nutrition-related knowledge deficit Etiology lack of diet education on Vitamin K foods and medications As Evidenced by Signs and Symptoms pt states he is unsure of interaction between vitamin k foods and medications Is patient on ventilator? No Is Patient Ambulatory and/or Out of Bed Yes REE-([place]-St. Jeor-ambulatory/OOB) [ 2179.644 NUTR.MSJOOB] Additional Notes Pro: (0.8-1g/kg) 65-81g/day Fluid: 1 mL/kcal or per MD request Nutrition Intervention Change Diet Order: Continue current or per MD request Nutrition Support: Glucerna daily Kcal 220 Protein (gm) 10 Teaching Recipient Patient Learning Readiness Good Teaching Methods Discussion,Handout Response to Teaching Verbalize understanding Education Handouts Provided Vitamin K and Medications Barriers to Learning No Barriers RD phone number provided Yes Patient aware of follow up options Yes Goal #1 Meet at least 75% of energy and protein needs from PO intake Goal #2 Adherence to diet education of Vitamin K foods and medication interactions Anticipated Discharge Needs: Cardiac/Consistent carbohydrate Follow-Up By: 03/22/19 Additional Comments F/U: PO intake
[2019-03-19] MEDS: K-DUR PO SCH ×2 (11:26→11:32)
[2019-03-19] MEDS: SOLU-Medrol IV SCH ×2 (11:26→22:02)
[2019-03-19] MEDS: ZITHROMAX 500 MG in NACL 0.9% 250ML 250 ML IV SCH (11:34)
[2019-03-19] MEDS: ZESTRIL PO SCH (11:38)
--- NOTE | 2019-03-19 13:35 | Progress Note ---
Assessment and Plan Patient alert and awake, resting on room air. No acute respiratory distress. O2 saturation 100%. Patient is afebrile. Patient is very cooperative this morning. Patient still smoking. counselled to stop smoking - Patient Problems (1) CHF (congestive heart failure) Current Visit: Yes Status: Acute Plan to address problem: Patient is on I/V Lasix and lisinopril and warfarin. (2) COPD (chronic obstructive pulmonary disease) Current Visit: Yes Status: Acute Plan to address problem: Possible COPD with history of heavy smoking. Albuterol/atrovent aerosol treatments q 6 hours. Continue I/V solumedrol. Patient is on S/C Lovenox. Patient is on Zithromax and ceftriaxone. Recommend GI Prophylaxis. PFTs as out patient. (3) Tobacco use disorder Current Visit: Yes Status: Acute Plan to address problem: Patient is on Nicotine patch. Will spiritual counselor him to stop smoking. (4) Prostate cancer Current Visit: Yes Status: Acute Plan to address problem: recommended to consult urology (5) Diabetes Current Visit: Yes Status: Acute Plan to address problem: as per primary care (6) Hypertension Current Visit: Yes Status: Acute Plan to address problem: Management as per primary care. (7) Depression Current Visit: Yes Status: Acute Plan to address problem: Depression, Anxiety and Anger. Recommend to consult psychiatry. Subjective Date of service: 03/19/19 Principal diagnosis: AE-COPD; Pulmonary HTN; LV Thrombus; Bilateral Pulmonary Infiltrates ? PNA Interval history: Patient alert and awake, resting on room air. No acute respiratory distress. O2 saturation 100%. Patient is afebrile. Patient is very cooperative this morning. Patient still smoking. counselled to stop smoking. Objective Vital Signs - 12hr 03/19/19 03/19/19 03/19/19 03:34 03:44 03:53 Temperature Pulse Rate 78 Pulse Rate [ 81 80 Anterior Bilateral Throughout] Respiratory 18 Rate Respiratory 18 18 Rate [Anterior Bilateral Throughout] Blood Pressure 105/71 O2 Sat by Pulse 95 Oximetry 03/19/19 03/19/19 03/19/19 05:13 08:50 09:42 Temperature 98.0 F 98.4 F Pulse Rate 83 83 83 Pulse Rate [ Anterior Bilateral Throughout] Respiratory 18 18 Rate Respiratory Rate [Anterior Bilateral Throughout] Blood Pressure 108/70 113/73 113/73 O2 Sat by Pulse 98 96 Oximetry 03/19/19 03/19/19 03/19/19 09:50 10:00 11:38 Temperature Pulse Rate 81 Pulse Rate [ 83 81 Anterior Bilateral Throughout] Respiratory Rate Respiratory 20 20 Rate [Anterior Bilateral Throughout] Blood Pressure 106/65 O2 Sat by Pulse 98 Oximetry Constitutional: no acute distress, alert, other (elderly looking AAM, normocephalic and atraumatic ) Eyes: non-icteric, other (hard of hearing) ENT: oropharynx moist, other (mallampati 2) Neck: supple, no lymphadenopathy, no JVD Effort: mildly labored Ascultation: Bilateral: rales, rhonchi, other (prolonged exp phase) Percussion: Bilateral: not dull Cardiovascular: regular rate and rhythm Gastrointestinal: normoactive bowel sounds, soft, non-tender, non-distended Integumentary: normal Extremities: no cyanosis, no edema, pulses normal, no ischemia or petechiae Neurologic: normal mental status, non-focal exam, pupils equal and round, CN II-XII normal, unable to assess Psychiatric: mood appropriate, affect normal CBC and BMP: 03/16/19 06:58 03/18/19 10:47 ABG, PT/INR, D-dimer: ABG POC ABG pH 7.354 (7.35-7.45) 03/16/19 08:36 POC ABG pCO2 33.3 (35-45) L 03/16/19 08:36 POC ABG pO2 79 (80-105) L 03/16/19 08:36 POC ABG HCO3 18.6 (22-26 mml/L) 03/16/19 08:36 POC ABG Total CO2 20 (23-27mmol/L) 03/16/19 08:36 POC ABG O2 Sat 95 03/16/19 08:36 PT/INR, D-dimer PT 19.0 Sec. (12.2-14.9) H 03/19/19 07:00 INR 1.49 (0.87-1.13) H 03/19/19 07:00 Abnormal lab findings: Abnormal Labs 03/14/19 03/14/19 03/14/19 12:23 12:23 16:36 RDW Lymph % (Auto) Lymph # Seg Neutrophils % PT INR POC ABG pCO2 POC ABG pO2 Sodium 136 L Chloride Carbon Dioxide 18 L BUN Glucose 306 H POC Glucose 289 H Hemoglobin A1c Calcium NT-Pro-B Natriuret Pep 1941 H 1893 H 03/14/19 03/14/19 03/15/19 16:48 21:27 08:09 RDW Lymph % (Auto) Lymph # Seg Neutrophils % PT INR POC ABG pCO2 POC ABG pO2 Sodium Chloride Carbon Dioxide BUN Glucose POC Glucose 134 H 162 H Hemoglobin A1c 8.1 H Calcium NT-Pro-B Natriuret Pep 03/15/19 03/15/19 03/15/19 11:36 16:50 21:25 RDW Lymph % (Auto) Lymph # Seg Neutrophils % PT INR POC ABG pCO2 POC ABG pO2 Sodium Chloride Carbon Dioxide BUN Glucose POC Glucose 174 H 111 H 170 H Hemoglobin A1c Calcium NT-Pro-B Natriuret Pep 03/16/19 03/16/19 03/16/19 06:58 06:58 07:39 RDW 17.8 H Lymph % (Auto) 12.1 L Lymph # 0.8 L Seg Neutrophils % 83.0 H PT INR POC ABG pCO2 POC ABG pO2 Sodium Chloride 108.3 H Carbon Dioxide 21 L BUN Glucose 272 H POC Glucose 224 H Hemoglobin A1c Calcium 8.3 L NT-Pro-B Natriuret Pep 03/16/19 03/16/19 03/16/19 08:36 11:12 13:41 RDW Lymph % (Auto) Lymph # Seg Neutrophils % PT 15.2 H INR POC ABG pCO2 33.3 L POC ABG pO2 79 L Sodium Chloride Carbon Dioxide BUN Glucose POC Glucose 354 H Hemoglobin A1c Calcium NT-Pro-B Natriuret Pep 03/16/19 03/16/19 03/17/19 17:00 20:54 05:08 RDW Lymph % (Auto) Lymph # Seg Neutrophils % PT 15.4 H INR 1.15 H POC ABG pCO2 POC ABG pO2 Sodium Chloride Carbon Dioxide BUN Glucose POC Glucose 285 H 232 H Hemoglobin A1c Calcium NT-Pro-B Natriuret Pep 03/17/19 03/17/19 03/17/19 09:07 12:37 16:50 RDW Lymph % (Auto) Lymph # Seg Neutrophils % PT INR POC ABG pCO2 POC ABG pO2 Sodium Chloride Carbon Dioxide BUN Glucose POC Glucose 232 H 251 H 181 H Hemoglobin A1c Calcium NT-Pro-B Natriuret Pep 03/17/19 03/18/19 03/18/19 21:07 05:29 08:28 RDW Lymph % (Auto) Lymph # Seg Neutrophils % PT 16.2 H INR 1.22 H POC ABG pCO2 POC ABG pO2 Sodium Chloride Carbon Dioxide BUN Glucose POC Glucose 200 H 114 H Hemoglobin A1c Calcium NT-Pro-B Natriuret Pep 03/18/19 03/18/19 03/18/19 10:47 11:39 15:52 RDW Lymph % (Auto) Lymph # Seg Neutrophils % PT INR POC ABG pCO2 POC ABG pO2 Sodium 136 L Chloride Carbon Dioxide BUN 29 H Glucose 269 H POC Glucose 306 H 117 H Hemoglobin A1c Calcium NT-Pro-B Natriuret Pep 03/18/19 03/19/19 03/19/19 21:47 07:00 07:48 RDW Lymph % (Auto) Lymph # Seg Neutrophils % PT 19.0 H INR 1.49 H POC ABG pCO2 POC ABG pO2 Sodium Chloride Carbon Dioxide BUN Glucose POC Glucose 161 H 193 H Hemoglobin A1c Calcium NT-Pro-B Natriuret Pep 03/19/19 11:38 RDW Lymph % (Auto) Lymph # Seg Neutrophils % PT INR POC ABG pCO2 POC ABG pO2 Sodium Chloride Carbon Dioxide BUN Glucose POC Glucose 229 H Hemoglobin A1c Calcium NT-Pro-B Natriuret Pep Allied health notes reviewed: nursing
[2019-03-19] MEDS: COUMADIN PO SCH (17:22)
[2019-03-19] MEDS: SINGULAIR PO SCH (22:03)
[2019-03-19] MEDS: RisperDAL PO SCH (22:03)
[2019-03-19] MEDS: AMBIEN PO PRN (22:04)
[2019-03-20] MEDS: LASIX IV SCH ×2 (05:42→18:08)
[2019-03-20 08:02] LABS: INR 1.97 (0.87-1.13)
[2019-03-20] MEDS: DUONEB *Not for PRN Use IH SCH ×3 (08:41→20:24)
--- NOTE | 2019-03-20 09:21 | Progress Note ---
Assessment and Plan Assessment and plan: Acute combined systolic and diastolic heart failure. Echocardiogram reveals severe 4 chamber dilated cardiomyopathy. EF is 10-15%. Mild concentric left ventricular hypertrophy observed. IV milrinone per cardiology. Fluid/sodium restriction. Nonischemic Dilated cardiomyopathy. As above. Apical LV thrombus. Echo revealed Apical LV thrombus present measuring 2.2 cm in largest diameter. Continue Lovenox 80 twice a day and Coumadin. Continue warfarin therapy with lovenox bridge for apical LV thrombus. For discharge once target INR 2-3 is reached. Mild to moderate pulmonary hypertension. Right ventricular systolic pressure is 38 mmHg Acute COPD exacerbation. Continue COPD pathway, bronchodilators/nebulizers and IV steroids Bilateral community-acquired pneumonia. Chest x-ray reveals right middle lobe opacity with air bronchograms and a left perihilar opacity. Start IV antibiotic s Acute hypoxemic respiratory failure. Etiology secondary to pulmonary hypertension, COPD exacerbation and heart failure. Continue O2. Diabetes mellitus type 2. Continue Accu-Cheks, Lantus and sliding scale insulin. Hypertension. Continue antihypertensive medications. Depression. Continue home meds: Remeron, Risperidone, and lithium Consult to psych pending Insomnia. Continue Ambien. Tobacco abuse. Patient with a 97-awma-cryf history. Continue nicotine patch. Patient will be counseled on smoking cessation. History Interval history: Patient states shortness of breath has improved. Patient denies chest pain. Patient is asking for sleeping pill. Hospitalist Physical - Constitutional Vitals: Temp Pulse Resp BP Pulse Ox 98.3 F 83 12 122/86 99 03/20/19 03:54 03/20/19 03:54 03/20/19 03:54 03/20/19 03:54 03/20/19 03:54 General appearance: Present: no acute distress - EENT Eyes: Present: PERRL, EOM intact ENT: hearing intact, clear oral mucosa, dentition normal - Neck Neck: Present: supple, normal ROM - Respiratory Respiratory effort: normal Respiratory: bilateral: CTA - Cardiovascular Rhythm: regular Heart Sounds: Present: S1 & S2. Absent: gallop, rub - Extremities Extremities: no ischemia, No edema, Full ROM - Abdominal General gastrointestinal: soft, non-tender, non-distended, normal bowel sounds - Integumentary Integumentary: Present: clear, warm, dry - Neurologic Neurologic: CNII-XII intact, moves all extremities Results - Labs CBC & Chem 7: 03/16/19 06:58 03/18/19 10:47 Labs: Laboratory Last Values WBC 6.4 K/mm3 (4.5-11.0) 03/16/19 06:58 RBC 4.27 M/mm3 (3.65-5.03) 03/16/19 06:58 Hgb 12.4 gm/dl (11.8-15.2) 03/16/19 06:58 Hct 37.8 % (35.5-45.6) 03/16/19 06:58 MCV 89 fl (84-94) 03/16/19 06:58 MCH 29 pg (28-32) 03/16/19 06:58 MCHC 33 % (32-34) 03/16/19 06:58 RDW 17.8 % (13.2-15.2) H 03/16/19 06:58 Plt Count 278 K/mm3 (140-440) 03/16/19 06:58 Lymph % (Auto) 12.1 % (13.4-35.0) L 03/16/19 06:58 [place] % (Auto) 4.7 % (0.0-7.3) 03/16/19 06:58 Eos % (Auto) 0.0 % (0.0-4.3) 03/16/19 06:58 Baso % (Auto) 0.2 % (0.0-1.8) 03/16/19 06:58 Lymph # 0.8 K/mm3 (1.2-5.4) L 03/16/19 06:58 [place] # 0.3 K/mm3 (0.0-0.8) 03/16/19 06:58 Eos # 0.0 K/mm3 (0.0-0.4) 03/16/19 06:58 Baso # 0.0 K/mm3 (0.0-0.1) 03/16/19 06:58 Seg Neutrophils % 83.0 % (40.0-70.0) H 03/16/19 06:58 Seg Neutrophils # 5.3 K/mm3 (1.8-7.7) 03/16/19 06:58 PT 23.7 Sec. (12.2-14.9) H 03/20/19 07:10 INR 1.97 (0.87-1.13) H 03/20/19 07:10 POC ABG pH 7.354 (7.35-7.45) 03/16/19 08:36 POC ABG pCO2 33.3 (35-45) L 03/16/19 08:36 POC ABG pO2 79 (80-105) L 03/16/19 08:36 POC ABG HCO3 18.6 (22-26 mml/L) 03/16/19 08:36 POC ABG Total CO2 20 (23-27mmol/L) 03/16/19 08:36 POC ABG O2 Sat 95 03/16/19 08:36 POC ABG Base Excess -7 ((-2) - (+3)mmol/L) 03/16/19 08:36 Sodium 136 mmol/L (137-145) L 03/18/19 10:47 Potassium 4.7 mmol/L (3.6-5.0) 03/18/19 10:47 Chloride 100.2 mmol/L (98-107) 03/18/19 10:47 Carbon Dioxide 24 mmol/L (22-30) 03/18/19 10:47 Anion Gap 17 mmol/L 03/18/19 10:47 BUN 29 mg/dL (9-20) H 03/18/19 10:47 Creatinine 1.1 mg/dL (0.8-1.5) 03/18/19 10:47 Estimated GFR > 60 ml/min 03/18/19 10:47 BUN/Creatinine Ratio 26 % 03/18/19 10:47 Glucose 269 mg/dL (75-100) H 03/18/19 10:47 POC Glucose 213 (70-105) H 03/19/19 21:02 Hemoglobin A1c 8.1 % (4-6) H 03/14/19 16:48 Calcium 8.4 mg/dL (8.4-10.2) 03/18/19 10:47 Magnesium 2.00 mg/dL (1.7-2.3) 03/18/19 10:47 NT-Pro-B Natriuret Pep 1893 pg/mL (0-900) H 03/14/19 12:23 Triglycerides 87 mg/dL (2-149) 03/14/19 12:23 Cholesterol 166 mg/dL (50-199) 03/14/19 12:23 LDL Cholesterol Direct 116 mg/dL (50-130) 03/14/19 12:23 HDL Cholesterol 51 mg/dL (40-59) 03/14/19 12:23 Cholesterol/HDL Ratio 3.25 % 03/14/19 12:23 TSH 1.380 mlU/mL (0.270-4.200) 03/14/19 12:23 [place] 0.3 mmol/L (0.0-1.2) 03/14/19 15:09 Active Medications - Current Medications Current Medications: Generic Name Dose Route Start Last Admin Trade Name Freq PRN Reason Stop Dose Admin Acetaminophen 650 mg 03/14/19 15:43 Tylenol PO Q4H PRN Pain MILD(1-3)/Fever >100.5/RAMOS Albuterol 2.5 mg 03/14/19 21:23 03/15/19 12:16 Proventil IH 2.5 mg Q4HRT PRN Administration Shortness Of Breath Albuterol/Ipratropium 1 ampul 03/20/19 08:00 03/20/19 08:41 Duoneb *Not For Prn Use* IH 1 ampul TIDRT YADY Administration Alprazolam 0.5 mg 03/14/19 16:19 03/19/19 03:54 Xanax PO 0.5 mg Q8HR PRN Administration Anxiety Aspirin 81 mg 03/15/19 10:00 03/19/19 09:42 Baby Aspirin PO 81 mg DAILY YADY Administration Carvedilol 3.125 mg 03/16/19 22:00 03/19/19 22:03 Coreg PO 3.125 mg BID YADY Administration Dextrose 50 ml 03/14/19 15:43 D50w (25gm) Syringe IV PRN PRN Hypoglycemia Docusate Sodium 100 mg 03/14/19 22:00 03/19/19 22:03 Colace PO 100 mg BID YADY Administration Enoxaparin Sodium 80 mg 03/14/19 22:00 03/19/19 22:02 Lovenox SUB-Q 80 mg Q12HR YADY Administration Famotidine 20 mg 03/18/19 10:00 03/19/19 09:42 Pepcid PO 20 mg QDAY YADY Administration Furosemide 40 mg 03/16/19 18:00 03/20/19 05:42 Lasix IV 40 mg 0600,1800 YADY Administration Azithromycin 500 mg/ Sodium 250 mls @ 250 mls/hr 03/15/19 14:00 03/19/19 11:34 Chloride IV 250 mls/hr Q24HR YADY Administration Protocol Ceftriaxone Sodium 2 gm in 100 mls @ 200 mls/hr 03/15/19 14:00 03/19/19 09:41 Rocephin/Ns 2 Gm/100 Ml IV 200 mls/hr Q24HR YADY Administration Protocol Insulin Human Isoph/Insulin Regular 25 unit 03/17/19 21:00 03/19/19 17:23 Humulin 70/30 SUB-Q 25 unit BIDDIAB YADY Administration Insulin Human Lispro 0 unit 03/14/19 16:30 03/19/19 22:04 Humalog SUB-Q 3 unit ACHS YADY Administration Protocol Lisinopril 10 mg 03/15/19 10:00 03/19/19 11:38 Zestril PO Not Given DAILY [facility] Methylprednisolone Sodium Succinate 40 mg 03/18/19 10:00 03/19/19 22:02 Solu-Medrol IV 40 mg Q12H YADY Administration Montelukast Sodium 10 mg 03/15/19 22:00 03/19/19 22:03 Singulair PO 10 mg QHS YADY Administration Morphine Sulfate 2 mg 03/14/19 15:43 Morphine IV Q4H PRN Pain, Moderate (4-6) Naloxone HCl 0.1 mg 03/14/19 15:43 Narcan 0.4 Mg/1 Ml IV Q2MIN PRN Res Rate </= 8 or 02 SAT < 92% Nicotine 14 mg 03/15/19 15:00 03/19/19 09:42 Habitrol TD 14 mg QDAY YADY Administration Ondansetron HCl 4 mg 03/14/19 15:43 Zofran IV Q8H PRN Nausea And Vomiting Potassium Chloride 10 meq 03/15/19 13:00 03/19/19 11:32 K-Dur PO Not Given QDAY YADY Risperidone 1 mg 03/15/19 22:00 03/19/19 22:03 Risperdal PO 1 mg HS YADY Administration Sodium Chloride 10 ml 03/14/19 22:00 03/19/19 22:04 Sodium Chloride Flush Syringe 10 Ml IV 10 ml BID YADY Administration Sodium Chloride 10 ml 03/14/19 15:43 03/17/19 05:28 Sodium Chloride Flush Syringe 10 Ml IV 10 ml PRN PRN Administration LINE FLUSH Warfarin Sodium 7.5 mg 03/17/19 17:00 03/19/19 17:22 Coumadin PO 7.5 mg DAILY@1700 [facility] Administration Protocol Zolpidem Tartrate 5 mg 03/14/19 15:43 03/19/19 22:04 Ambien PO 5 mg QHS PRN Administration Insomnia Nutrition/Malnutrition Assess - Dietary Evaluation Nutrition/Malnutrition Findings: Nutrition Notes Start: 03/15/19 09:53 Freq: Status: Active Protocol: Document 03/17/19 10:15 SA (Rec: 03/17/19 10:29 SA [id number]) Co-Sign 03/17/19 10:15 LP Nutrition Notes Need for Assessment generated from: Education Initial or Follow up Reassessment Current Diagnosis Diabetes,Hypertension,Heart Failure Other Pertinent Diagnosis Insomnia, depression, anxiety, nicotine dependence Current Diet Cardiac/Consistent Carbohydrate Labs/Tests Glu: 272 Ca: 8.3 Pertinent Medications Reviewed Height 6 ft 1 in Weight 81.2 kg [place] Body Weight (kg) 83.63 BMI 23.6 Subjective/Other Information Screened for Vitamin K/ Coumadin interaction. Patient states appetite is off and on. Pt eating 75% of meals. Pt denies N/V/D. Pt states UBW: 176#. Pt interested in ONS. Percent of energy/protein needs met: 69%/97% Burn Absent Trauma Absent #2 Nutrition Diagnosis Food and nutrition-related knowledge deficit Etiology lack of diet education on Vitamin K foods and medications As Evidenced by Signs and Symptoms pt states he is unsure of interaction between vitamin k foods and medications Is patient on ventilator? No Is Patient Ambulatory and/or Out of Bed Yes REE-([facility]-ambulatory/OOB) [ 2165.644 [id number]] Additional Notes Pro: (0.8-1g/kg) 65-81g/day Fluid: 1 mL/kcal or per MD request Nutrition Intervention Change Diet Order: Continue current or per MD request Nutrition Support: Glucerna daily Kcal 220 Protein (gm) 10 Teaching Recipient Patient Learning Readiness Good Teaching Methods Discussion,Handout Response to Teaching Verbalize understanding Education Handouts Provided Vitamin K and Medications Barriers to Learning No Barriers RD phone number provided Yes Patient aware of follow up options Yes Goal #1 Meet at least 75% of energy and protein needs from PO intake Goal #2 Adherence to diet education of Vitamin K foods and medication interactions Anticipated Discharge Needs: Cardiac/Consistent carbohydrate Follow-Up By: 03/22/19 Additional Comments F/U: PO intake
[2019-03-20] MEDS ORDERED: AMBIEN PO PRN (09:22)
[2019-03-20] MEDS: ROCEPHIN/NS 2 GM/100 ML 2 GM/100 ML BAG IV SCH (09:30)
[2019-03-20] MEDS: HABITROL TD SCH (09:31)
[2019-03-20] MEDS: PEPCID PO SCH (09:32)
[2019-03-20] MEDS: BABY ASPIRIN PO SCH (09:32)
[2019-03-20] MEDS: COLACE PO SCH ×2 (09:32→22:29)
[2019-03-20] MEDS: K-DUR PO SCH (09:33)
[2019-03-20] MEDS: LOVENOX SUB-Q SCH ×2 (09:33→22:28)
[2019-03-20] MEDS: ZESTRIL PO SCH (09:34)
[2019-03-20] MEDS: HumaLOG SUB-Q SCH ×5 (09:35→22:56)
[2019-03-20] MEDS: COREG PO SCH ×2 (09:35→22:29)
--- NOTE | 2019-03-20 10:31 | Progress Note ---
Assessment and Plan Acute CHF exacerbation Nonischemic cardiomyopathy cardiac cath 2015 showing non-obstructive CAD Hypertension Diabetes Apical LV thrombus Fluid/sodium restriction. Aggressive medical therapy for systolic heart failure Continue warfarin therapy with lovenox bridge for apical LV thrombus. For discharge once target INR 2-3 is reached. Likely tomorrow Subjective Principal diagnosis: AE-COPD; Pulmonary HTN; LV Thrombus; Bilateral Pulmonary Infiltrates ? PNA Interval history: No events overnight Objective Vital Signs Temp Pulse Pulse Pulse Resp Resp BP 03/20/19 09:35 91 H 131/88 03/20/19 09:34 91 H 131/88 03/20/19 08:56 97.6 F 18 131/88 03/20/19 03:54 98.3 F 83 12 122/86 03/19/19 23:19 98.2 F 78 13 100/60 03/19/19 22:35 78 18 03/19/19 22:08 03/19/19 22:03 78 113/67 03/19/19 21:34 82 03/19/19 21:25 82 20 03/19/19 21:12 79 20 03/19/19 20:05 97.9 F 78 14 113/67 03/19/19 16:30 88 03/19/19 16:09 97.9 F 20 03/19/19 16:06 98.0 F 63 18 130/83 03/19/19 15:59 98.0 F 86 18 109/69 03/19/19 14:51 85 20 03/19/19 14:41 88 20 03/19/19 11:38 81 106/65 03/19/19 11:37 98.0 F 82 18 105/65 Pulse Ox 03/20/19 09:35 03/20/19 09:34 03/20/19 08:56 03/20/19 03:54 99 03/19/19 23:19 98 03/19/19 22:35 99 03/19/19 22:08 100 03/19/19 22:03 03/19/19 21:34 03/19/19 21:25 03/19/19 21:12 100 03/19/19 20:05 99 03/19/19 16:30 03/19/19 16:09 03/19/19 16:06 97 03/19/19 15:59 94 03/19/19 14:51 03/19/19 14:41 03/19/19 11:38 03/19/19 11:37 99 - Physical Examination Narrative exam: Physical examination Vitals reviewed GEN: No acute distress noted HEENT: Carotids 2+ NECK: Supple CVS: S1 and S2 heard no significant murmur or gallop noted LUNGS/CHEST: Normal auscultation ABD: Soft nontender Extremities: No edema noted normal color NEURO: Alert moves all all 4 extremities PSY: Stable General: No Apparent Distress HEENT: Positive: PERRL Neck: Positive: trachea midline Neuro: Positive: Grossly Intact Extremities: Absent: edema - Labs and Meds Coagulation 03/20/19 Range/Units 07:10 PT 23.7 H (12.2-14.9) Sec. INR 1.97 H (0.87-1.13) - Allied health notes Allied health notes reviewed: nursing
[2019-03-20] MEDS: SODIUM CHLORIDE FLUSH SYRINGE 10 ML IV SCH ×2 (10:53→22:30)
[2019-03-20] MEDS: SOLU-Medrol IV SCH ×2 (10:53→22:30)
[2019-03-20] MEDS: ZITHROMAX 500 MG in NACL 0.9% 250ML 250 ML IV SCH (11:38)
--- NOTE | 2019-03-20 15:22 | Progress Note ---
Assessment and Plan Patient alert and awake, resting on 2L nasal cannula. No acute respiratory distress. O2 saturation 96%. Patient is afebrile. Patient is cooperative. Patient still smoking. counselled to stop smoking. - Patient Problems (1) CHF (congestive heart failure) Current Visit: Yes Status: Acute Plan to address problem: Patient is on I/V Lasix and lisinopril and warfarin. (2) COPD (chronic obstructive pulmonary disease) Current Visit: Yes Status: Acute Plan to address problem: Possible COPD with history of heavy smoking. Albuterol/atrovent aerosol treatments q 6 hours. Continue I/V solumedrol. Patient is on S/C Lovenox. Patient is on Zithromax and ceftriaxone. Recommend GI Prophylaxis. PFTs as out patient. (3) Tobacco use disorder Current Visit: Yes Status: Acute Plan to address problem: Patient is on Nicotine patch. Couselled to stop smoking. (4) Prostate cancer Current Visit: Yes Status: Acute Plan to address problem: recommended to consult urology (5) Diabetes Current Visit: Yes Status: Acute Plan to address problem: as per primary care (6) Hypertension Current Visit: Yes Status: Acute Plan to address problem: Management as per primary care. (7) Depression Current Visit: Yes Status: Acute Plan to address problem: Depression, Anxiety and Anger. Recommend to consult psychiatry. Subjective Date of service: 03/20/19 Principal diagnosis: AE-COPD; Pulmonary HTN; LV Thrombus; Bilateral Pulmonary Infiltrates ? PNA Interval history: Patient alert and awake, resting on 2L nasal cannula. No acute respiratory distress. O2 saturation 96%. Patient is afebrile. Patient is cooperative. Patient still smoking. counselled to stop smoking. Objective Vital Signs - 12hr 03/20/19 03/20/19 03/20/19 03:54 08:41 08:51 Temperature 98.3 F Pulse Rate 83 Pulse Rate [ 88 91 H Anterior Bilateral Throughout] Respiratory 12 Rate Respiratory 20 20 Rate [Anterior Bilateral Throughout] Blood Pressure 122/86 O2 Sat by Pulse 99 Oximetry 03/20/19 03/20/19 03/20/19 08:56 09:34 09:35 Temperature 97.6 F Pulse Rate 91 H 91 H Pulse Rate [ Anterior Bilateral Throughout] Respiratory 18 Rate Respiratory Rate [Anterior Bilateral Throughout] Blood Pressure 131/88 131/88 131/88 O2 Sat by Pulse Oximetry 03/20/19 03/20/19 14:15 14:25 Temperature Pulse Rate Pulse Rate [ 81 87 Anterior Bilateral Throughout] Respiratory Rate Respiratory 20 20 Rate [Anterior Bilateral Throughout] Blood Pressure O2 Sat by Pulse Oximetry Constitutional: no acute distress, alert, other (elderly looking AAM, normocephalic and atraumatic ) Eyes: non-icteric, other (hard of hearing) ENT: oropharynx moist, other (mallampati 2) Neck: supple, no lymphadenopathy, no JVD Effort: mildly labored Ascultation: Bilateral: rales, rhonchi, other (prolonged exp phase) Percussion: Bilateral: not dull Cardiovascular: regular rate and rhythm Gastrointestinal: normoactive bowel sounds, soft, non-tender, non-distended Integumentary: normal Extremities: no cyanosis, no edema, pulses normal, no ischemia or petechiae Neurologic: normal mental status, non-focal exam, pupils equal and round, CN II- XII normal, unable to assess Psychiatric: mood appropriate, affect normal CBC and BMP: 03/21/19 05:12 03/21/19 05:12 ABG, PT/INR, D-dimer: ABG POC ABG pH 7.354 (7.35-7.45) 03/16/19 08:36 POC ABG pCO2 33.3 (35-45) L 03/16/19 08:36 POC ABG pO2 79 (80-105) L 03/16/19 08:36 POC ABG HCO3 18.6 (22-26 mml/L) 03/16/19 08:36 POC ABG Total CO2 20 (23-27mmol/L) 03/16/19 08:36 POC ABG O2 Sat 95 03/16/19 08:36 PT/INR, D-dimer PT 23.7 Sec. (12.2-14.9) H 03/20/19 07:10 INR 1.97 (0.87-1.13) H 03/20/19 07:10 Abnormal lab findings: Abnormal Labs 03/14/19 03/14/19 03/14/19 12:23 12:23 16:36 RDW Lymph % (Auto) Lymph # Seg Neutrophils % PT INR POC ABG pCO2 POC ABG pO2 Sodium 136 L Chloride Carbon Dioxide 18 L BUN Glucose 306 H POC Glucose 289 H Hemoglobin A1c Calcium NT-Pro-B Natriuret Pep 1941 H 1893 H 03/14/19 03/14/19 03/15/19 16:48 21:27 08:09 RDW Lymph % (Auto) Lymph # Seg Neutrophils % PT INR POC ABG pCO2 POC ABG pO2 Sodium Chloride Carbon Dioxide BUN Glucose POC Glucose 134 H 162 H Hemoglobin A1c 8.1 H Calcium NT-Pro-B Natriuret Pep 03/15/19 03/15/19 03/15/19 11:36 16:50 21:25 RDW Lymph % (Auto) Lymph # Seg Neutrophils % PT INR POC ABG pCO2 POC ABG pO2 Sodium Chloride Carbon Dioxide BUN Glucose POC Glucose 174 H 111 H 170 H Hemoglobin A1c Calcium NT-Pro-B Natriuret Pep 03/16/19 03/16/19 03/16/19 06:58 06:58 07:39 RDW 17.8 H Lymph % (Auto) 12.1 L Lymph # 0.8 L Seg Neutrophils % 83.0 H PT INR POC ABG pCO2 POC ABG pO2 Sodium Chloride 108.3 H Carbon Dioxide 21 L BUN Glucose 272 H POC Glucose 224 H Hemoglobin A1c Calcium 8.3 L NT-Pro-B Natriuret Pep 03/16/19 03/16/19 03/16/19 08:36 11:12 13:41 RDW Lymph % (Auto) Lymph # Seg Neutrophils % PT 15.2 H INR POC ABG pCO2 33.3 L POC ABG pO2 79 L Sodium Chloride Carbon Dioxide BUN Glucose POC Glucose 354 H Hemoglobin A1c Calcium NT-Pro-B Natriuret Pep 03/16/19 03/16/19 03/17/19 17:00 20:54 05:08 RDW Lymph % (Auto) Lymph # Seg Neutrophils % PT 15.4 H INR 1.15 H POC ABG pCO2 POC ABG pO2 Sodium Chloride Carbon Dioxide BUN Glucose POC Glucose 285 H 232 H Hemoglobin A1c Calcium NT-Pro-B Natriuret Pep 03/17/19 03/17/19 03/17/19 09:07 12:37 16:50 RDW Lymph % (Auto) Lymph # Seg Neutrophils % PT INR POC ABG pCO2 POC ABG pO2 Sodium Chloride Carbon Dioxide BUN Glucose POC Glucose 232 H 251 H 181 H Hemoglobin A1c Calcium NT-Pro-B Natriuret Pep 03/17/19 03/18/19 03/18/19 21:07 05:29 08:28 RDW Lymph % (Auto) Lymph # Seg Neutrophils % PT 16.2 H INR 1.22 H POC ABG pCO2 POC ABG pO2 Sodium Chloride Carbon Dioxide BUN Glucose POC Glucose 200 H 114 H Hemoglobin A1c Calcium NT-Pro-B Natriuret Pep 03/18/19 03/18/19 03/18/19 10:47 11:39 15:52 RDW Lymph % (Auto) Lymph # Seg Neutrophils % PT INR POC ABG pCO2 POC ABG pO2 Sodium 136 L Chloride Carbon Dioxide BUN 29 H Glucose 269 H POC Glucose 306 H 117 H Hemoglobin A1c Calcium NT-Pro-B Natriuret Pep 03/18/19 03/19/19 03/19/19 21:47 07:00 07:48 RDW Lymph % (Auto) Lymph # Seg Neutrophils % PT 19.0 H INR 1.49 H POC ABG pCO2 POC ABG pO2 Sodium Chloride Carbon Dioxide BUN Glucose POC Glucose 161 H 193 H Hemoglobin A1c Calcium NT-Pro-B Natriuret Pep 03/19/19 03/19/19 03/19/19 11:38 16:01 21:02 RDW Lymph % (Auto) Lymph # Seg Neutrophils % PT INR POC ABG pCO2 POC ABG pO2 Sodium Chloride Carbon Dioxide BUN Glucose POC Glucose 229 H 204 H 213 H Hemoglobin A1c Calcium NT-Pro-B Natriuret Pep 03/20/19 03/20/19 03/20/19 07:10 09:00 12:32 RDW Lymph % (Auto) Lymph # Seg Neutrophils % PT 23.7 H INR 1.97 H POC ABG pCO2 POC ABG pO2 Sodium Chloride Carbon Dioxide BUN Glucose POC Glucose 314 H 156 H Hemoglobin A1c Calcium NT-Pro-B Natriuret Pep Allied health notes reviewed: nursing
[2019-03-20] MEDS: COUMADIN PO SCH (18:07)
[2019-03-20] MEDS: RisperDAL PO SCH (22:29)
[2019-03-20] MEDS: SINGULAIR PO SCH (22:29)
[2019-03-20] MEDS: AMBIEN PO PRN (22:29)
[2019-03-21] MEDS: LASIX IV SCH ×2 (05:36→17:31)
[2019-03-21 06:11] LABS: Basophils % (Auto) 0.2 % (0.0-1.8); Hematocrit 42.5 % (35.5-45.6); Hemoglobin 13.8 gm/dl (11.8-15.2); INR 1.93 (0.87-1.13); Lymphocytes # (Auto) 0.7 K/mm3 (1.2-5.4); Lymphocytes % (Auto) 6.1 % (13.4-35.0); Mean Corpuscular HGB Conc 32 % (32-34); Mean Corpuscular Volume 88 fl (84-94); Monocytes # (Auto) 0.6 K/mm3 (0.0-0.8); Monocytes % (Auto) 4.6 % (0.0-7.3); Platelet Count 342 K/mm3 (140-440); Red Blood Count 4.82 M/mm3 (3.65-5.03)
[2019-03-21 06:36] LABS: BUN/Creatinine Ratio 24; Blood Urea Nitrogen 26 mg/dL (9-20); Calcium 8.7 mg/dL (8.4-10.2); Hemolysis Index 6
[2019-03-21] MEDS: DUONEB *Not for PRN Use IH SCH ×3 (07:58→20:57)
[2019-03-21] MEDS: ROCEPHIN/NS 2 GM/100 ML 2 GM/100 ML BAG IV SCH (09:27)
[2019-03-21] MEDS: BABY ASPIRIN PO SCH (09:28)
[2019-03-21] MEDS: COLACE PO SCH ×2 (09:28→22:39)
[2019-03-21] MEDS: ZESTRIL PO SCH (09:28)
[2019-03-21] MEDS: HABITROL TD SCH (09:28)
[2019-03-21] MEDS: PEPCID PO SCH (09:28)
[2019-03-21] MEDS: ZITHROMAX 500 MG in NACL 0.9% 250ML 250 ML IV SCH (09:28)
[2019-03-21] MEDS: SOLU-Medrol IV SCH ×2 (09:29→22:38)
[2019-03-21] MEDS: COREG PO SCH ×2 (09:29→22:39)
[2019-03-21] MEDS: LOVENOX SUB-Q SCH ×2 (09:30→22:39)
[2019-03-21] MEDS: SODIUM CHLORIDE FLUSH SYRINGE 10 ML IV SCH ×2 (09:30→22:40)
[2019-03-21] MEDS: HumaLOG SUB-Q SCH ×4 (09:31→22:40)
--- NOTE | 2019-03-21 11:14 | Progress Note ---
Assessment and Plan Assessment and plan: Acute combined systolic and diastolic heart failure. Echocardiogram reveals severe 4 chamber dilated cardiomyopathy. EF is 10-15%. Mild concentric left ventricular hypertrophy observed. IV milrinone per cardiology. Fluid/sodium restriction. Nonischemic Dilated cardiomyopathy. As above. Apical LV thrombus. Echo revealed Apical LV thrombus present measuring 2.2 cm in largest diameter. Continue Lovenox 80 twice a day and Coumadin. Continue warfarin therapy with lovenox bridge for apical LV thrombus. For discharge once target INR 2-3 is reached. Mild to moderate pulmonary hypertension. Right ventricular systolic pressure is 38 mmHg Acute COPD exacerbation. Continue COPD pathway, bronchodilators/nebulizers and IV steroids Bilateral community-acquired pneumonia. Chest x-ray reveals right middle lobe opacity with air bronchograms and a left perihilar opacity. Start IV antibiotic s Acute hypoxemic respiratory failure. Etiology secondary to pulmonary hypertension, COPD exacerbation and heart failure. Continue O2. Diabetes mellitus type 2. Continue Accu-Cheks, Lantus and sliding scale insulin. Hypertension. Continue antihypertensive medications. Depression. Continue home meds: Remeron, Risperidone, and lithium Consult to psych pending Insomnia. Continue Ambien. Tobacco abuse. Patient with a 74-plby-ocym history. Continue nicotine patch. Patient will be counseled on smoking cessation. History Interval history: Patient states shortness of breath has improved. Patient denies chest pain. Patient is asking for sleeping pill. Hospitalist Physical - Constitutional Vitals: Temp Pulse Resp BP Pulse Ox 97.4 F L 83 16 110/73 99 03/21/19 08:21 03/21/19 09:29 03/21/19 08:21 03/21/19 09:29 03/21/19 08:21 General appearance: Present: no acute distress - EENT Eyes: Present: PERRL, EOM intact ENT: hearing intact, clear oral mucosa, dentition normal - Neck Neck: Present: supple, normal ROM - Respiratory Respiratory effort: normal Respiratory: bilateral: CTA - Cardiovascular Rhythm: regular Heart Sounds: Present: S1 & S2. Absent: gallop, rub - Extremities Extremities: no ischemia, No edema, Full ROM - Abdominal General gastrointestinal: soft, non-tender, non-distended, normal bowel sounds - Integumentary Integumentary: Present: clear, warm, dry - Neurologic Neurologic: CNII-XII intact, moves all extremities Results - Labs CBC & Chem 7: 03/21/19 05:12 03/21/19 05:12 Labs: Laboratory Last Values WBC 12.1 K/mm3 (4.5-11.0) H 03/21/19 05:12 RBC 4.82 M/mm3 (3.65-5.03) 03/21/19 05:12 Hgb 13.8 gm/dl (11.8-15.2) 03/21/19 05:12 Hct 42.5 % (35.5-45.6) 03/21/19 05:12 MCV 88 fl (84-94) 03/21/19 05:12 MCH 29 pg (28-32) 03/21/19 05:12 MCHC 32 % (32-34) 03/21/19 05:12 RDW 17.0 % (13.2-15.2) H 03/21/19 05:12 Plt Count 342 K/mm3 (140-440) 03/21/19 05:12 Lymph % (Auto) 6.1 % (13.4-35.0) L 03/21/19 05:12 [place] % (Auto) 4.6 % (0.0-7.3) 03/21/19 05:12 Eos % (Auto) 0.0 % (0.0-4.3) 03/21/19 05:12 Baso % (Auto) 0.2 % (0.0-1.8) 03/21/19 05:12 Lymph # 0.7 K/mm3 (1.2-5.4) L 03/21/19 05:12 [place] # 0.6 K/mm3 (0.0-0.8) 03/21/19 05:12 Eos # 0.0 K/mm3 (0.0-0.4) 03/21/19 05:12 Baso # 0.0 K/mm3 (0.0-0.1) 03/21/19 05:12 Seg Neutrophils % 89.1 % (40.0-70.0) H 03/21/19 05:12 Seg Neutrophils # 10.8 K/mm3 (1.8-7.7) H 03/21/19 05:12 PT 23.4 Sec. (12.2-14.9) H 03/21/19 05:12 INR 1.93 (0.87-1.13) H 03/21/19 05:12 POC ABG pH 7.354 (7.35-7.45) 03/16/19 08:36 POC ABG pCO2 33.3 (35-45) L 03/16/19 08:36 POC ABG pO2 79 (80-105) L 03/16/19 08:36 POC ABG HCO3 18.6 (22-26 mml/L) 03/16/19 08:36 POC ABG Total CO2 20 (23-27mmol/L) 03/16/19 08:36 POC ABG O2 Sat 95 03/16/19 08:36 POC ABG Base Excess -7 ((-2) - (+3)mmol/L) 03/16/19 08:36 Sodium 133 mmol/L (137-145) L 03/21/19 05:12 Potassium 5.0 mmol/L (3.6-5.0) 03/21/19 05:12 Chloride 96.4 mmol/L (98-107) L 03/21/19 05:12 Carbon Dioxide 23 mmol/L (22-30) 03/21/19 05:12 Anion Gap 19 mmol/L 03/21/19 05:12 BUN 26 mg/dL (9-20) H 03/21/19 05:12 Creatinine 1.1 mg/dL (0.8-1.5) 03/21/19 05:12 Estimated GFR > 60 ml/min 03/21/19 05:12 BUN/Creatinine Ratio 24 % 03/21/19 05:12 Glucose 390 mg/dL (75-100) H 03/21/19 05:12 POC Glucose 273 (70-105) H 03/21/19 08:28 Hemoglobin A1c 8.1 % (4-6) H 03/14/19 16:48 Calcium 8.7 mg/dL (8.4-10.2) 03/21/19 05:12 Magnesium 2.00 mg/dL (1.7-2.3) 03/18/19 10:47 NT-Pro-B Natriuret Pep 1893 pg/mL (0-900) H 03/14/19 12:23 Triglycerides 87 mg/dL (2-149) 03/14/19 12:23 Cholesterol 166 mg/dL (50-199) 03/14/19 12:23 LDL Cholesterol Direct 116 mg/dL (50-130) 03/14/19 12:23 HDL Cholesterol 51 mg/dL (40-59) 03/14/19 12:23 Cholesterol/HDL Ratio 3.25 % 03/14/19 12:23 TSH 1.380 mlU/mL (0.270-4.200) 03/14/19 12:23 [place] 0.3 mmol/L (0.0-1.2) 03/14/19 15:09 Active Medications - Current Medications Current Medications: Generic Name Dose Route Start Last Admin Trade Name Freq PRN Reason Stop Dose Admin Acetaminophen 650 mg 03/14/19 15:43 Tylenol PO Q4H PRN Pain MILD(1-3)/Fever >100.5/RAMOS Albuterol 2.5 mg 03/14/19 21:23 03/15/19 12:16 Proventil IH 2.5 mg Q4HRT PRN Administration Shortness Of Breath Albuterol/Ipratropium 1 ampul 03/20/19 08:00 03/21/19 07:58 Duoneb *Not For Prn Use* IH 1 ampul TIDRT YADY Administration Alprazolam 0.5 mg 03/14/19 16:19 03/19/19 03:54 Xanax PO 0.5 mg Q8HR PRN Administration Anxiety Aspirin 81 mg 03/15/19 10:00 03/21/19 09:28 Baby Aspirin PO 81 mg DAILY YADY Administration Carvedilol 3.125 mg 03/16/19 22:00 03/21/19 09:29 Coreg PO 3.125 mg BID YADY Administration Dextrose 50 ml 03/14/19 15:43 D50w (25gm) Syringe IV PRN PRN Hypoglycemia Docusate Sodium 100 mg 03/14/19 22:00 03/21/19 09:28 Colace PO 100 mg BID YADY Administration Enoxaparin Sodium 80 mg 03/14/19 22:00 03/21/19 09:30 Lovenox SUB-Q 80 mg Q12HR YADY Administration Famotidine 20 mg 03/18/19 10:00 03/21/19 09:28 Pepcid PO 20 mg QDAY YADY Administration Furosemide 40 mg 03/16/19 18:00 03/21/19 05:36 Lasix IV 40 mg 0600,1800 YADY Administration Azithromycin 500 mg/ Sodium 250 mls @ 250 mls/hr 03/15/19 14:00 03/21/19 09:28 Chloride IV 250 mls/hr Q24HR YADY Administration Protocol Ceftriaxone Sodium 2 gm in 100 mls @ 200 mls/hr 03/15/19 14:00 03/21/19 09:27 Rocephin/Ns 2 Gm/100 Ml IV 03/21/19 13:59 200 mls/hr Q24HR YADY Administration Protocol Insulin Human Isoph/Insulin Regular 25 unit 03/17/19 21:00 03/21/19 09:31 Humulin 70/30 SUB-Q 25 unit BIDDIAB YADY Administration Insulin Human Lispro 0 unit 03/14/19 16:30 03/21/19 09:31 Humalog SUB-Q 4 unit ACHS YADY Administration Protocol Lisinopril 10 mg 03/15/19 10:00 03/21/19 09:28 Zestril PO 10 mg DAILY YADY Administration Methylprednisolone Sodium Succinate 40 mg 03/18/19 10:00 03/21/19 09:29 Solu-Medrol IV 40 mg Q12H YADY Administration Montelukast Sodium 10 mg 03/15/19 22:00 03/20/19 22:29 Singulair PO 10 mg QHS YADY Administration Morphine Sulfate 2 mg 03/14/19 15:43 Morphine IV Q4H PRN Pain, Moderate (4-6) Naloxone HCl 0.1 mg 03/14/19 15:43 Narcan 0.4 Mg/1 Ml IV Q2MIN PRN Res Rate </= 8 or 02 SAT < 92% Nicotine 14 mg 03/15/19 15:00 03/21/19 09:28 Habitrol TD 14 mg QDAY YADY Administration Ondansetron HCl 4 mg 03/14/19 15:43 Zofran IV Q8H PRN Nausea And Vomiting Risperidone 1 mg 03/15/19 22:00 03/20/19 22:29 Risperdal PO 1 mg HS YADY Administration Sodium Chloride 10 ml 03/14/19 22:00 03/21/19 09:30 Sodium Chloride Flush Syringe 10 Ml IV 10 ml BID YADY Administration Sodium Chloride 10 ml 03/14/19 15:43 03/17/19 05:28 Sodium Chloride Flush Syringe 10 Ml IV 10 ml PRN PRN Administration LINE FLUSH Warfarin Sodium 7.5 mg 03/17/19 17:00 03/20/19 18:07 Coumadin PO 7.5 mg DAILY@1700 [facility] Administration Protocol Warfarin Sodium 2.5 mg 03/21/19 17:00 Coumadin PO 03/21/19 17:01 DAILY@1700 [facility] Zolpidem Tartrate 10 mg 03/20/19 22:00 03/20/19 22:29 Ambien PO 10 mg QHS PRN Administration Insomnia Nutrition/Malnutrition Assess - Dietary Evaluation Nutrition/Malnutrition Findings: Nutrition Notes Start: 03/15/19 09:53 Freq: Status: Active Protocol: Document 03/17/19 10:15 SA (Rec: 03/17/19 10:29 SA [id number]) Co-Sign 03/17/19 10:15 LP Nutrition Notes Need for Assessment generated from: Education Initial or Follow up Reassessment Current Diagnosis Diabetes,Hypertension,Heart Failure Other Pertinent Diagnosis Insomnia, depression, anxiety, nicotine dependence Current Diet Cardiac/Consistent Carbohydrate Labs/Tests Glu: 272 Ca: 8.3 Pertinent Medications Reviewed Height 6 ft 1 in Weight 81.2 kg [place] Body Weight (kg) 83.63 BMI 23.6 Subjective/Other Information Screened for Vitamin K/ Coumadin interaction. Patient states appetite is off and on. Pt eating 75% of meals. Pt denies N/V/D. Pt states UBW: 176#. Pt interested in ONS. Percent of energy/protein needs met: 69%/97% Burn Absent Trauma Absent #2 Nutrition Diagnosis Food and nutrition-related knowledge deficit Etiology lack of diet education on Vitamin K foods and medications As Evidenced by Signs and Symptoms pt states he is unsure of interaction between vitamin k foods and medications Is patient on ventilator? No Is Patient Ambulatory and/or Out of Bed Yes REE-([place] or-ambulatory/OOB) [ [id number] [id number]] Additional Notes Pro: (0.8-1g/kg) 65-81g/day Fluid: 1 mL/kcal or per MD request Nutrition Intervention Change Diet Order: Continue current or per MD request Nutrition Support: Glucerna daily Kcal 220 Protein (gm) 10 Teaching Recipient Patient Learning Readiness Good Teaching Methods Discussion,Handout Response to Teaching Verbalize understanding Education Handouts Provided Vitamin K and Medications Barriers to Learning No Barriers RD phone number provided Yes Patient aware of follow up options Yes Goal #1 Meet at least 75% of energy and protein needs from PO intake Goal #2 Adherence to diet education of Vitamin K foods and medication interactions Anticipated Discharge Needs: Cardiac/Consistent carbohydrate Follow-Up By: 03/22/19 Additional Comments F/U: PO intake
--- NOTE | 2019-03-21 11:15 | Progress Note ---
Assessment and Plan Acute CHF exacerbation Nonischemic cardiomyopathy cardiac cath 2015 showing non-obstructive CAD Hypertension Diabetes Apical LV thrombus Fluid/sodium restriction. Continue medical therapy for systolic heart failure. Continue warfarin therapy with lovenox bridge for apical LV thrombus. For discharge once target INR 2-3 is reached. Subjective Date of service: 03/21/19 Principal diagnosis: AE-COPD; Pulmonary HTN; LV Thrombus; Bilateral Pulmonary Infiltrates ? PNA Interval history: Patient has no complaints, wants to go home. Awaits therapeutic INR, today 1.93. Objective Vital Signs Temp Pulse Pulse Pulse Resp Resp BP 03/21/19 09:29 83 110/73 03/21/19 09:28 83 110/73 03/21/19 08:21 97.4 F L 83 16 110/78 03/21/19 08:20 64 18 03/21/19 08:10 63 18 03/21/19 05:34 97.4 F L 90 18 105/64 03/21/19 00:37 98.7 F 67 18 113/68 03/20/19 22:29 79 104/73 03/20/19 22:20 79 18 03/20/19 20:42 77 18 03/20/19 20:37 80 03/20/19 20:25 74 18 03/20/19 20:11 98.8 F 79 20 104/73 03/20/19 15:57 98.5 F 82 15 101/69 03/20/19 14:25 87 20 03/20/19 14:15 81 20 03/20/19 12:51 98.1 F 94 H 36 H 113/81 Pulse Ox 03/21/19 09:29 03/21/19 09:28 03/21/19 08:21 99 03/21/19 08:20 03/21/19 08:10 03/21/19 05:34 99 03/21/19 00:37 97 03/20/19 22:29 03/20/19 22:20 96 03/20/19 20:42 03/20/19 20:37 03/20/19 20:25 03/20/19 20:11 96 03/20/19 15:57 99 03/20/19 14:25 03/20/19 14:15 03/20/19 12:51 100 - Physical Examination General: No Apparent Distress HEENT: Positive: PERRL Neck: Positive: trachea midline Cardiac: Positive: Reg Rate and Rhythm Lungs: Positive: Decreased Breath Sounds Neuro: Positive: Grossly Intact Extremities: Absent: edema - Labs and Meds Coagulation 03/21/19 Range/Units 05:12 PT 23.4 H (12.2-14.9) Sec. INR 1.93 H (0.87-1.13) CBC 03/21/19 Range/Units 05:12 WBC 12.1 H (4.5-11.0) K/mm3 RBC 4.82 (3.65-5.03) M/mm3 Hgb 13.8 (11.8-15.2) gm/dl Hct 42.5 (35.5-45.6) % Plt Count 342 (140-440) K/mm3 Lymph # 0.7 L (1.2-5.4) K/mm3 [place] # 0.6 (0.0-0.8) K/mm3 Eos # 0.0 (0.0-0.4) K/mm3 Baso # 0.0 (0.0-0.1) K/mm3 Comprehensive Metabolic Panel 03/21/19 Range/Units 05:12 Sodium 133 L (137-145) mmol/L Potassium 5.0 (3.6-5.0) mmol/L Chloride 96.4 L (98-107) mmol/L Carbon Dioxide 23 (22-30) mmol/L BUN 26 H (9-20) mg/dL Creatinine 1.1 (0.8-1.5) mg/dL Glucose 390 H (75-100) mg/dL Calcium 8.7 (8.4-10.2) mg/dL - Allied health notes Allied health notes reviewed: nursing
[2019-03-21] MEDS ORDERED: COUMADIN PO SCH (17:00)
[2019-03-21] MEDS: COUMADIN PO SCH (17:30)
--- NOTE | 2019-03-21 19:19 | Progress Note ---
Assessment and Plan Patient alert and awake, resting on 2L nasal cannula. No acute respiratory distress. O2 saturation 100%. Patient is afebrile. Patient is cooperative. Patient still smoking. counselled to stop smoking. - Patient Problems (1) CHF (congestive heart failure) Current Visit: Yes Status: Acute Plan to address problem: Patient is on I/V Lasix and lisinopril and warfarin. (2) COPD (chronic obstructive pulmonary disease) Current Visit: Yes Status: Acute Plan to address problem: Possible COPD with history of heavy smoking. Albuterol/atrovent aerosol treatments q 6 hours. Continue I/V solumedrol. Patient is on S/C Lovenox. Patient is on Zithromax and ceftriaxone. Recommend GI Prophylaxis. PFTs as out patient. (3) Tobacco use disorder Current Visit: Yes Status: Acute Plan to address problem: Patient is on Nicotine patch. Couselled to stop smoking. (4) Prostate cancer Current Visit: Yes Status: Acute Plan to address problem: recommended to consult urology (5) Diabetes Current Visit: Yes Status: Acute Plan to address problem: as per primary care (6) Hypertension Current Visit: Yes Status: Acute Plan to address problem: Management as per primary care. (7) Depression Current Visit: Yes Status: Acute Plan to address problem: Depression, Anxiety and Anger. Recommend to consult psychiatry. Subjective Date of service: 03/21/19 Principal diagnosis: AE-COPD; Pulmonary HTN; LV Thrombus; Bilateral Pulmonary Infiltrates ? PNA Interval history: Patient alert and awake, resting on 2L nasal cannula. No acute respiratory distress. O2 saturation 100%. Patient is afebrile. Patient is cooperative. Patient still smoking. counselled to stop smoking. Objective Vital Signs - 12hr 03/21/19 03/21/19 03/21/19 08:10 08:20 08:21 Temperature 97.4 F L Pulse Rate 83 Pulse Rate [ 63 64 Anterior Bilateral Throughout] Respiratory 16 Rate Respiratory 18 18 Rate [Anterior Bilateral Throughout] Blood Pressure 110/78 O2 Sat by Pulse 99 Oximetry 03/21/19 03/21/19 03/21/19 09:28 09:29 10:00 Temperature Pulse Rate 83 83 76 Pulse Rate [ Anterior Bilateral Throughout] Respiratory Rate Respiratory Rate [Anterior Bilateral Throughout] Blood Pressure 110/73 110/73 O2 Sat by Pulse Oximetry 03/21/19 03/21/19 03/21/19 12:37 13:56 14:06 Temperature 97.9 F Pulse Rate 82 Pulse Rate [ 78 84 Anterior Bilateral Throughout] Respiratory 16 Rate Respiratory 20 20 Rate [Anterior Bilateral Throughout] Blood Pressure 106/77 O2 Sat by Pulse 100 Oximetry Constitutional: no acute distress, alert, other (elderly looking AAM, normocephalic and atraumatic ) Eyes: non-icteric, other (hard of hearing) ENT: oropharynx moist, other (mallampati 2) Neck: supple, no lymphadenopathy, no JVD Effort: mildly labored Ascultation: Bilateral: rales, rhonchi, other (prolonged exp phase) Percussion: Bilateral: not dull Cardiovascular: regular rate and rhythm Gastrointestinal: normoactive bowel sounds, soft, non-tender, non-distended Integumentary: normal Extremities: no cyanosis, no edema, pulses normal, no ischemia or petechiae Neurologic: normal mental status, non-focal exam, pupils equal and round, CN II- XII normal, unable to assess Psychiatric: mood appropriate, affect normal CBC and BMP: 03/21/19 05:12 03/21/19 05:12 ABG, PT/INR, D-dimer: ABG POC ABG pH 7.354 (7.35-7.45) 03/16/19 08:36 POC ABG pCO2 33.3 (35-45) L 03/16/19 08:36 POC ABG pO2 79 (80-105) L 03/16/19 08:36 POC ABG HCO3 18.6 (22-26 mml/L) 03/16/19 08:36 POC ABG Total CO2 20 (23-27mmol/L) 03/16/19 08:36 POC ABG O2 Sat 95 03/16/19 08:36 PT/INR, D-dimer PT 23.4 Sec. (12.2-14.9) H 03/21/19 05:12 INR 1.93 (0.87-1.13) H 03/21/19 05:12 Abnormal lab findings: Abnormal Labs 03/14/19 03/14/19 03/14/19 12:23 12:23 16:36 WBC RDW Lymph % (Auto) Lymph # Seg Neutrophils % Seg Neutrophils # PT INR POC ABG pCO2 POC ABG pO2 Sodium 136 L Chloride Carbon Dioxide 18 L BUN Glucose 306 H POC Glucose 289 H Hemoglobin A1c Calcium NT-Pro-B Natriuret Pep 1941 H 1893 H 03/14/19 03/14/19 03/15/19 16:48 21:27 08:09 WBC RDW Lymph % (Auto) Lymph # Seg Neutrophils % Seg Neutrophils # PT INR POC ABG pCO2 POC ABG pO2 Sodium Chloride Carbon Dioxide BUN Glucose POC Glucose 134 H 162 H Hemoglobin A1c 8.1 H Calcium NT-Pro-B Natriuret Pep 03/15/19 03/15/19 03/15/19 11:36 16:50 21:25 WBC RDW Lymph % (Auto) Lymph # Seg Neutrophils % Seg Neutrophils # PT INR POC ABG pCO2 POC ABG pO2 Sodium Chloride Carbon Dioxide BUN Glucose POC Glucose 174 H 111 H 170 H Hemoglobin A1c Calcium NT-Pro-B Natriuret Pep 03/16/19 03/16/19 03/16/19 06:58 06:58 07:39 WBC RDW 17.8 H Lymph % (Auto) 12.1 L Lymph # 0.8 L Seg Neutrophils % 83.0 H Seg Neutrophils # PT INR POC ABG pCO2 POC ABG pO2 Sodium Chloride 108.3 H Carbon Dioxide 21 L BUN Glucose 272 H POC Glucose 224 H Hemoglobin A1c Calcium 8.3 L NT-Pro-B Natriuret Pep 03/16/19 03/16/19 03/16/19 08:36 11:12 13:41 WBC RDW Lymph % (Auto) Lymph # Seg Neutrophils % Seg Neutrophils # PT 15.2 H INR POC ABG pCO2 33.3 L POC ABG pO2 79 L Sodium Chloride Carbon Dioxide BUN Glucose POC Glucose 354 H Hemoglobin A1c Calcium NT-Pro-B Natriuret Pep 03/16/19 03/16/19 03/17/19 17:00 20:54 05:08 WBC RDW Lymph % (Auto) Lymph # Seg Neutrophils % Seg Neutrophils # PT 15.4 H INR 1.15 H POC ABG pCO2 POC ABG pO2 Sodium Chloride Carbon Dioxide BUN Glucose POC Glucose 285 H 232 H Hemoglobin A1c Calcium NT-Pro-B Natriuret Pep 03/17/19 03/17/19 03/17/19 09:07 12:37 16:50 WBC RDW Lymph % (Auto) Lymph # Seg Neutrophils % Seg Neutrophils # PT INR POC ABG pCO2 POC ABG pO2 Sodium Chloride Carbon Dioxide BUN Glucose POC Glucose 232 H 251 H 181 H Hemoglobin A1c Calcium NT-Pro-B Natriuret Pep 03/17/19 03/18/19 03/18/19 21:07 05:29 08:28 WBC RDW Lymph % (Auto) Lymph # Seg Neutrophils % Seg Neutrophils # PT 16.2 H INR 1.22 H POC ABG pCO2 POC ABG pO2 Sodium Chloride Carbon Dioxide BUN Glucose POC Glucose 200 H 114 H Hemoglobin A1c Calcium NT-Pro-B Natriuret Pep 03/18/19 03/18/19 03/18/19 10:47 11:39 15:52 WBC RDW Lymph % (Auto) Lymph # Seg Neutrophils % Seg Neutrophils # PT INR POC ABG pCO2 POC ABG pO2 Sodium 136 L Chloride Carbon Dioxide BUN 29 H Glucose 269 H POC Glucose 306 H 117 H Hemoglobin A1c Calcium NT-Pro-B Natriuret Pep 03/18/19 03/19/19 03/19/19 21:47 07:00 07:48 WBC RDW Lymph % (Auto) Lymph # Seg Neutrophils % Seg Neutrophils # PT 19.0 H INR 1.49 H POC ABG pCO2 POC ABG pO2 Sodium Chloride Carbon Dioxide BUN Glucose POC Glucose 161 H 193 H Hemoglobin A1c Calcium NT-Pro-B Natriuret Pep 03/19/19 03/19/19 03/19/19 11:38 16:01 21:02 WBC RDW Lymph % (Auto) Lymph # Seg Neutrophils % Seg Neutrophils # PT INR POC ABG pCO2 POC ABG pO2 Sodium Chloride Carbon Dioxide BUN Glucose POC Glucose 229 H 204 H 213 H Hemoglobin A1c Calcium NT-Pro-B Natriuret Pep 03/20/19 03/20/19 03/20/19 07:10 09:00 12:32 WBC RDW Lymph % (Auto) Lymph # Seg Neutrophils % Seg Neutrophils # PT 23.7 H INR 1.97 H POC ABG pCO2 POC ABG pO2 Sodium Chloride Carbon Dioxide BUN Glucose POC Glucose 314 H 156 H Hemoglobin A1c Calcium NT-Pro-B Natriuret Pep 03/20/19 03/20/19 03/21/19 16:03 22:47 02:11 WBC RDW Lymph % (Auto) Lymph # Seg Neutrophils % Seg Neutrophils # PT INR POC ABG pCO2 POC ABG pO2 Sodium Chloride Carbon Dioxide BUN Glucose POC Glucose 146 H 290 H 291 H Hemoglobin A1c Calcium NT-Pro-B Natriuret Pep 03/21/19 03/21/19 03/21/19 05:12 05:12 05:12 WBC 12.1 H RDW 17.0 H Lymph % (Auto) 6.1 L Lymph # 0.7 L Seg Neutrophils % 89.1 H Seg Neutrophils # 10.8 H PT 23.4 H INR 1.93 H POC ABG pCO2 POC ABG pO2 Sodium 133 L Chloride 96.4 L Carbon Dioxide BUN 26 H Glucose 390 H POC Glucose Hemoglobin A1c Calcium NT-Pro-B Natriuret Pep 03/21/19 03/21/19 08:28 12:28 WBC RDW Lymph % (Auto) Lymph # Seg Neutrophils % Seg Neutrophils # PT INR POC ABG pCO2 POC ABG pO2 Sodium Chloride Carbon Dioxide BUN Glucose POC Glucose 273 H 219 H Hemoglobin A1c Calcium NT-Pro-B Natriuret Pep Allied health notes reviewed: nursing
[2019-03-21] MEDS: SINGULAIR PO SCH (22:39)
[2019-03-21] MEDS: RisperDAL PO SCH (22:39)
[2019-03-22] MEDS: AMBIEN PO PRN (00:50)
[2019-03-22 05:45] LABS: INR 2.3 (0.87-1.13)
[2019-03-22] MEDS: LASIX IV SCH (06:19)
[2019-03-22 07:42] VITALS: BP 103/67
[2019-03-22] MEDS: COLACE PO SCH (09:09)
[2019-03-22] MEDS: SOLU-Medrol IV SCH (09:09)
[2019-03-22] MEDS: BABY ASPIRIN PO SCH (09:09)
[2019-03-22] MEDS: LOVENOX SUB-Q SCH (09:09)
[2019-03-22] MEDS: COREG PO SCH (09:09)
[2019-03-22] MEDS: ZESTRIL PO SCH (09:09)
[2019-03-22] MEDS: HumaLOG SUB-Q SCH (09:10)
[2019-03-22] MEDS: DUONEB *Not for PRN Use IH SCH ×3 (09:10→13:41)
[2019-03-22] MEDS: SODIUM CHLORIDE FLUSH SYRINGE 10 ML IV SCH (09:11)
[2019-03-22] MEDS: HABITROL TD SCH (09:11)
[2019-03-22] MEDS: PEPCID PO SCH (09:11)
--- NOTE | 2019-03-22 12:11 | Progress Note ---
Assessment and Plan Acute CHF exacerbation Nonischemic cardiomyopathy cardiac cath 2015 showing non-obstructive CAD Hypertension Diabetes Apical LV thrombus Fluid/sodium restriction. Continue medical therapy for systolic heart failure. Continue warfarin therapy for apical LV thrombus. Stable for discharge home today. 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 Subjective Date of service: 03/22/19 Principal diagnosis: AE-COPD; Pulmonary HTN; LV Thrombus; Bilateral Pulmonary Infiltrates ? PNA Interval history: INR at 2.3 today. No events on telemetry. Objective Vital Signs Temp Pulse Pulse Pulse Resp Resp BP 03/22/19 09:09 103/67 03/22/19 07:25 97.9 F 75 18 103/67 03/22/19 06:18 98.5 F 85 20 111/79 03/22/19 00:40 98.1 F 73 20 115/75 03/21/19 22:39 67 108/72 03/21/19 22:15 67 18 03/21/19 21:10 79 20 03/21/19 21:02 03/21/19 21:01 72 20 03/21/19 20:59 98.5 F 67 20 108/72 03/21/19 19:22 72 03/21/19 17:30 97.9 F 90 18 118/75 03/21/19 14:06 84 20 03/21/19 13:56 78 20 03/21/19 12:37 97.9 F 82 16 106/77 Pulse Ox 03/22/19 09:09 03/22/19 07:25 100 03/22/19 06:18 99 03/22/19 00:40 100 03/21/19 22:39 03/21/19 22:15 100 03/21/19 21:10 03/21/19 21:02 100 03/21/19 21:01 03/21/19 20:59 100 03/21/19 19:22 03/21/19 17:30 100 03/21/19 14:06 03/21/19 13:56 03/21/19 12:37 100 - Physical Examination General: No Apparent Distress HEENT: Positive: PERRL Neck: Positive: trachea midline Cardiac: Positive: Reg Rate and Rhythm Lungs: Positive: Decreased Breath Sounds Neuro: Positive: Grossly Intact Extremities: Absent: edema - Labs and Meds Coagulation 03/22/19 Range/Units 05:03 PT 26.9 H (12.2-14.9) Sec. INR 2.30 H (0.87-1.13) - Allied health notes Allied health notes reviewed: nursing
--- NOTE | 2019-03-22 12:47 | Discharge Summary ---
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 Notified:: Phone number called:: [phone] Was contact made?: Yes If yes, spoke with:: awaiting call back/ brie Time called:: 18:28 03/15/19 12:31 Consult to Physician [CONS] Routine Comment: Consulting Provider: JOHN QUINTANILLA Physician Instructions: Reason For Exam: dilated CM, EF 10-15% 03/15/19 12:32 Consult to Physician [CONS] Routine Comment: Consulting Provider: MARGARITA LEWIS Physician Instructions: Reason For Exam: COPD exac [facility] Reason for admission: Worsening shortness of breath/insomnia Condition: Good Pertinent studies: CXR ECHO Hospital course: 64-year-old male patient with history of CHF, diabetes, hypertension, depression, anger management issues, and prostate cancer was admitted through ER with worsening shortness ofbreath and insomnia, noted to have acute on chronic systolic CHF.Evaluated and managed by cardiology,received milrinone drip.Evaluated by pulmonary and psych,medications optimised. symptoms significantly improved. today patient is comfortable, no new complaints,vital signs stable,, physical exam is unremarkable. Discharge Diagnosis: --Acute combined systolic and diastolic heart failure. Echocardiogram reveals severe 4 chamber dilated cardiomyopathy. EF is 10-15%. Mild concentric LVH. IV milrinone per cardiology. Fluid/sodium restriction. --Nonischemic Dilated cardiomyopathy: --Apical LV thrombus per Echo: on Lovenox 80 twice a day and Coumadin. Target INR 2-3 --Mild to moderate pulmonary hypertension. Right ventricular systolic pressure is 38 mmHg --Acute COPD exacerbation. Continue COPD pathway, bronchodilators/nebulizers and IV steroids --Bilateral community-acquired pneumonia: per Chest x-ray on antibiotics,cultures neg. --Acute hypoxemic respiratory failure ; secondary to pulmonary hypertension, COPD exacerbation and heart failure. --Diabetes mellitus type 2. Continue Accu-Cheks, Lantus and sliding scale insulin. --Hypertension. Continue antihypertensive medications. --Depression. Continue home meds: Remeron, Risperidone, and lithium Consult to psych pending --Insomnia. Continue Ambien. --Tobacco abuse. smoking cessation/nicotine patch. Stable for discharge. Disposition: - TO HOME OR SELFCARE Time spent for discharge: 32 min Core Measure Documentation - Palliative Care Palliative Care/ Comfort Measures: Not Applicable - Core Measures Any of the following diagnoses?: heart failure - Heart Failure Discharge Requirements TERESITA/ARB for LVSD if EF <40%: Yes Beta janie at discharge: Yes Exam - Constitutional Vitals: Temp Pulse Resp BP Pulse Ox 97.9 F 75 18 103/67 100 03/22/19 07:25 03/22/19 07:25 03/22/19 07:25 03/22/19 09:09 03/22/19 07:25 General appearance: Present: no acute distress, well-nourished - EENT Eyes: Present: PERRL, EOM intact - Neck Neck: Present: supple, normal ROM - Respiratory Respiratory effort: normal Respiratory: bilateral: diminished, rales, negative: rhonchi, wheezing - Cardiovascular Rhythm: regular Heart Sounds: Present: S1 & S2 - Extremities Extremities: no ischemia, pulses intact - Abdominal General gastrointestinal: Present: soft, non-tender, non-distended, normal bowel sounds - Integumentary Integumentary: Present: clear, warm - Musculoskeletal Musculoskeletal: strength equal bilaterally - Psychiatric Psychiatric: appropriate mood/affect, cooperative - Neurologic Neurologic: CNII-XII intact, moves all extremities Plan Activity: advance as tolerated Diet: diabetic, other (cardiac diet) Special Instructions: smoking cessation Additional Instructions: Next INR ck in 3 days at 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
== END 2019-03-22 16:39 | disposition home or self-care (01) | DRG 291 ==
LOC: ED 11:16 → 3A 14:49 → 4A 03-16 13:43 → OBSVTOIN 03-17 11:33
PROVIDERS: ADMIT Internal Medicine; ATTEND Internal Medicine
PROC: 4A033R1 Measurement of Arterial Saturation, Peripheral, Percutaneous Approach (ICD-10-PCS; principal; 2019-03-16)
DX: I11.0 Hypertensive heart disease with heart failure (principal); J18.9 Pneumonia, unspecified organism; J96.01 Acute respiratory failure with hypoxia; J44.1 Chronic obstructive pulmonary disease with (acute) exacerbation; J44.0 Chronic obstructive pulmonary disease with (acute) lower respiratory infection; G47.00 Insomnia, unspecified; F41.9 Anxiety disorder, unspecified; F17.210 Nicotine dependence, cigarettes, uncomplicated; I50.43 Acute on chronic combined systolic (congestive) and diastolic (congestive) heart failure; I27.20 Pulmonary hypertension, unspecified; F31.9 Bipolar disorder, unspecified; C61 Malignant neoplasm of prostate; I25.10 Atherosclerotic heart disease of native coronary artery without angina pectoris; I42.0 Dilated cardiomyopathy; I51.3 Intracardiac thrombosis, not elsewhere classified; Z79.82 Long term (current) use of aspirin; Z79.899 Other long term (current) drug therapy; Z79.4 Long term (current) use of insulin; Z71.6 Tobacco abuse counseling
CPT/HCPCS: 36415; 36600; 71046; 80048; 80061; 80178; 82803; 82962; 83036; 83735; 83880; 84443; 85025; 85610; 87040; 87205; 90686; 93005; 93010; 93306; 94640; 94760; 99406; G0378; J0456; J0696; J1650; J1815; J1940; J2260; J2920; J7050

== ENCOUNTER 2019-05-11 10:23 | Outpatient (CLI) | payer MEDICARE ==
[2019-05-11 10:58] LABS: Hematocrit 38.3 % (35.5-45.6); Hemoglobin 12.7 gm/dl (11.8-15.2); Mean Corpuscular HGB Conc 33 % (32-34); Mean Corpuscular Volume 87 fl (84-94); Platelet Count 281 K/mm3 (140-440); Red Blood Count 4.41 M/mm3 (3.65-5.03); Red Cell Distribution Width 16.6 % (13.2-15.2)
[2019-05-11 11:21] LABS: Alanine Aminotransferase 11 units/L (7-56); Albumin 3.7 g/dL (3.9-5); BUN/Creatinine Ratio 16; Blood Urea Nitrogen 14 mg/dL (9-20); Calcium 8.7 mg/dL (8.4-10.2); Hemolysis Index 4
--- NOTE | 2019-05-11 11:28 | XRay Report ---
ROUTINE CHEST, TWO VIEWS: HISTORY: Other pulmonary embolism without acute cor pulmonale. Compared to 03/16/19. Mild cardiomegaly and pulmonary venous congestion resolved. The trachea, heart, mediastinal contour, lung vazquez and bony thorax are unremarkable. IMPRESSION: Unremarkable chest x-ray.
--- NOTE | 2019-05-11 13:54 | Cat Scan Report ---
PROCEDURE: CT ANGIO CHEST TECHNIQUE: CT angiography of the chest was performed. IV contrast was administered. Axial images and coronal and sagittal reformatted images were obtained. HISTORY: Other pulmonary embolism without acute cor pulmonale. COMPARISON: None FINDINGS: There is no aortic dissection seen. There are no abnormal pulmonary arterial filling defects seen to indicate acute pulmonary emboli. There is no pleural effusion seen. There is no acute infiltrate. There is some subsegmental atelectasis and/or scarring in right middle lobe and lingula. There is no pneumothorax seen. There is no abnormal mediastinal or hilar mass seen. IMPRESSION: There is no aortic dissection or pulmonary embolism seen. This document is electronically signed by Siomara Lucas MD., May 11 2019 01:52:36 PM ET
== END 2019-05-11 10:24 | disposition home or self-care (01) ==
LOC: CT 10:23
PROVIDERS: ATTEND Internal Medicine
DX: I26.99 Other pulmonary embolism without acute cor pulmonale (principal); J44.9 Chronic obstructive pulmonary disease, unspecified; E11.9 Type 2 diabetes mellitus without complications; I10 Essential (primary) hypertension; K21.9 Gastro-esophageal reflux disease without esophagitis
CPT/HCPCS: 36415; 71046; 71275; 80053; 85027; Q9967

== ENCOUNTER 2019-08-03 09:47 | Outpatient (CLI) | payer MEDICARE | END 2019-08-03 09:48 | disposition home or self-care (01) | LOC: ECHO 09:47 | PROVIDERS: ATTEND Internal Medicine Cardiovascular Disease | DX: I34.0 Nonrheumatic mitral (valve) insufficiency (principal); E78.5 Hyperlipidemia, unspecified | CPT/HCPCS: 93306 ==

== ENCOUNTER 2019-12-03 19:08 | Emergency (ER) | payer MEDICARE ==
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
[2019-12-04] MEDS ORDERED: ACETAMINOPHEN 500 MG TAB PO ONE (02:51)
[2019-12-04] MEDS ORDERED: IBUPROFEN 400 MG TAB PO ONE (02:51)
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
[2019-12-04 06:16] VITALS: BP 127/76
== END 2019-12-04 03:42 | disposition home or self-care (01) ==
LOC: ED 19:08
DX: G44.319 Acute post-traumatic headache, not intractable (principal); M62.838 Other muscle spasm; I11.0 Hypertensive heart disease with heart failure; I50.9 Heart failure, unspecified; E11.9 Type 2 diabetes mellitus without complications; F31.89 Other bipolar disorder; F17.200 Nicotine dependence, unspecified, uncomplicated; Z79.899 Other long term (current) drug therapy; Z79.4 Long term (current) use of insulin
CPT/HCPCS: 70450; 72125